=== PATIENT | female | born 1990 | race Caucasian/White ===

== ENCOUNTER → 2020-01-26 11:48 | Outpatient (CLI) | payer MEDICAID, SELFPAY ==
[2020-01-26 13:59] LABS: Hematocrit 37.8 % (37-47); Hemoglobin 12.4 g/dL (12.0-15.0); Mean Corp Hgb Conc 32.8 g/dL (32-36); Mean Corpuscular Hgb 30.4 pg (27.0-32.0); Mean Corpuscular Volume 92.6 fL (81-99); Mean Platelet Vol. 10.2 fl (6.2-12.0); Platelet Count 263 K/mm3 (150-450); RBC Distribution Width CV 12.3 % (11.6-14.6); RBC Distribution Width SD 41.5 fl (35.1-43.9); Red Blood Count 4.08 M/mm3 (4.2-5.4); White Blood Count 8.2 K/mm3 (4.4-11.0)
[2020-01-26 14:17] LABS: Glucose Challenge Gest 1H 50g 87 mg/dL (70-140)
== END ==
PROVIDERS: PCP Family Medicine; Visit Provider Student in an Organized Health Care Education/Training Program
DX: Z34.82 Encounter for supervision of other normal pregnancy, second trimester (principal)
CPT/HCPCS: 36415; 82950; 85027

== ENCOUNTER → 2020-03-26 11:30 | Outpatient (CLI) | payer MEDICAID, SELFPAY | PROVIDERS: PCP Family Medicine; Visit Provider Obstetrics & Gynecology | DX: Z36.85 Encounter for antenatal screening for Streptococcus B (principal) | CPT/HCPCS: 87081 ==

== ENCOUNTER → 2020-04-18 09:50 | Outpatient (CLI) | payer MEDICAID, SELFPAY | PROVIDERS: Referring Provider Student in an Organized Health Care Education/Training Program; Visit Provider Student in an Organized Health Care Education/Training Program | DX: Z03.818 Encounter for observation for suspected exposure to other biological agents ruled out (principal) | CPT/HCPCS: 87635; C9803; U0005; U0003 ==

== ENCOUNTER 2020-04-23 07:00 | Inpatient (IN) | payer MEDICAID, SELFPAY ==
[2020-04-23] VITALS (82 sets, daily range): BP systolic 82–137; BP diastolic 33–72; PULSE 66–203; RESP 16; TEMP 36.3–37.3; O2SAT 80–100; BMI 35.3
[2020-04-23] MEDS: Lactated Ringers 1,000 ML 50 ML IV (07:23)
[2020-04-23 07:48] LABS: Absolute Lymphocyte Count 1.94 X10^3/uL (0.83-4.51); Absolute Neutrophil Count 4.4 X10^3/uL (2.0-7.7); Basophil# 0.04 X10^3/uL; Basophil% 0.6 % (0-1); Eosinophil# 0.09 X10^3/uL; Eosinophils% 1.3 % (0-5); Hematocrit 37.4 % (37-47); Hemoglobin 12.5 g/dL (12.0-15.0); Lymphocyte # 1.94 X10^3/ul (4.0); Lymphocyte % 27.3 % (19-41); Mean Corp Hgb Conc 33.4 g/dL (32-36); Mean Corpuscular Hgb 29.3 pg (27.0-32.0); Mean Corpuscular Volume 87.8 fL (81-99); Mean Platelet Vol. 10.8 fl (6.2-12.0); Monocyte# 0.62 X10^3/uL; Monocyte% 8.7 % (0-10); NRBC Flagged by Analyzer 0 % (0-5); Neutrophil # 4.38 X10^3/uL (2.7-7.7); Neutrophil % 61.5 % (47-70); Platelet Count 208 K/mm3 (150-450); RBC Distribution Width CV 13.6 % (11.6-14.6); RBC Distribution Width SD 43.5 fl (35.1-43.9); Red Blood Count 4.26 M/mm3 (4.2-5.4); White Blood Count 7.1 K/mm3 (4.4-11.0)
[2020-04-23] MEDS: Oxytocin 30 units/NS 500 ml 30 UNITS/500 ML IV.SOLN IV (08:00)
--- NOTE | 2020-04-23 08:22 | HP.PCM_ITS ---
History and Physical Date of Admission: 04/23/20 HPI: 29-year-old G2, P1 at 39 weeks and 5 days, CORNELIO 04/25/2020 x 7-week ultrasound, admitted for induction of labor at term. Denies leaking of fluid, vaginal bleeding, regular contractions. + FM. Denies headache, vision changes, chest pain, shortness of breath, nausea and vomiting. This is complicated by: Nothing Obstetrical History G1: 42-week vacuum-assisted vaginal delivery G2: Current Past Medical History Denies Medications PNV, folate Past Surgical History Right oophorectomy, wisdom teeth extraction Social History Tobacco use: Denies Alcohol use: Denies Illicit drug use: Denies Labs Blood type: B+ Rubella: Immune Hep B: Negative HIV: Negative RPR: Nonreactive 1 hour GTT: Within normal limits GBS: Negative COVID neg Allergies Codeine, Bactrim Review of Systems General: alert and oriented HEENT: _denies change of vision Heart/lungs: _denies CP, SOB GI: _denies nausea, vomiting, dysuria, diarrhea MSK: _denies calf pain, tenderness Physical Exam Vital Signs Temp Pulse BP Pulse Ox 04/23/20 10:22 98.7 F 78 108/62 98 04/23/20 09:38 98.6 F 93 104/58 L 98 04/23/20 08:25 95 103/69 97 04/23/20 07:29 99.1 F 107 H 112/69 97 General: a&o x3, NAD HEENT: normocephalic, atraumatic Cardio: no JVD Resp: no increased work in breathing Abdomen: soft, gravid, nontender Extremities: _minimal-moderate edema CE: 4 cm FHT: 135/moderate variability/plus accelerations/no decelerations [place]: Irregular Labs Laboratory Results - last 24 hr 04/23/20 04/23/20 07:23 07:23 WBC 7.1 RBC 4.26 Hgb 12.5 Hct 37.4 MCV 87.8 MCH 29.3 MCHC 33.4 RDW Std Deviation 43.5 RDW Coeff of Radha 13.6 Plt Count 208 MPV 10.8 Immature Gran % (Auto) 0.600 Neut % (Auto) 61.5 Lymph % (Auto) 27.3 [place] % (Auto) 8.7 Eos % (Auto) 1.3 Baso % (Auto) 0.6 Absolute Neuts (auto) 4.4 Absolute Lymphs (auto) 1.94 Nucleated RBC % 0 Blood Type B POSITIVE Antibody Screen NEGATIVE Assessment & Plan 29-year-old G2, P1 at 39 weeks and 5 days, CORNELIO 04/25/2020 x 7-week ultrasound, admitted for induction of labor at term. This is complicated by: Nothing Admit to L&D - Routine labor orders - Pitocin induction - GBS neg - CEFM - Anesthesia to see
--- NOTE | 2020-04-23 10:59 | PCM.PN.BLA ---
Progress Note Patient seen and examined. Artificial rupture membranes clear fluid. Cervical exam: 60/-1. FHR: 135/moderate variability/plus accelerations/no decelerations. [place]: Every 2 to 4 minutes. Continue to titrate Pitocin as tolerated. Epidural if and when patient desires. STROKE Vital Signs/Narrative: Vital Signs Temp Pulse BP Pulse Ox 04/23/20 10:22 98.7 F 78 108/62 98 04/23/20 09:38 98.6 F 93 104/58 L 98 04/23/20 08:25 95 103/69 97 04/23/20 07:29 99.1 F 107 H 112/69 97
[2020-04-23] MEDS: fentaNYL 100 MCG/2 ML Ampul IV (13:18)
[2020-04-23] MEDS: Lactated Ringers 500 ML 999 ML IV ×2 (14:24→15:47)
[2020-04-23] MEDS: fentaNYL-bupivacaine (epidural) 100 ML BAG EPIDURAL (15:22)
[2020-04-23] MEDS: Amnioinfusion- 0.9% NS 1,000 ML IV.SOLN. 1000 ML INTRA-UTER (16:23)
[2020-04-23] MEDS: Oxytocin 30 units/NS 500 ml 30 UNITS/500 ML IV.SOLN 334 UNITS IV (18:02)
--- NOTE | 2020-04-23 18:08 | PCM.OPRPT ---
Vaginal Delivery Maternal Presentation: Elective Induction Method of Induction: Pitocin, Amniotomy Amniotic Membrane Rupture Type: Artificial Amniotic Fluid Description: Clear Final CORNELIO: 04/25/20 Final CORNELIO Source: US <20 weeks Gestational age: 39 Weeks and 5 Days Date of Procedure: 04/23/20 Pre-Operative Diagnosis: [place]gs intrauterine , Term induction of labor Post-Operative Diagnosis: [place]gs intrauterine , Term induction of labor Surgery/ Procedure Performed: Spontaneous Vaginal Delivery Type of Anesthesia: Epidural Description of Procedure: Spontaneous delivery of viable male. No nuchal cord. Baby to mom. Cord clamped and cut. Spontaneous delivery of placenta. Periurethral superficial laceration repaired with two figure of eight stitches, red rubber in place in urethra during repair to confirm urethral patency. EBL 350cc. APGARS 8/9. Infant A gender: Male (1 minute): 8 (5 minute): 9
--- NOTE | 2020-04-23 18:12 | DCINST_ITS ---
<Farida Moyer - Last Filed: 04/23/20 18:12> Discharge Diet: No Restrictions Discharge Activity: Return to Normal Activity, No Restrictions, May not drive while taking narcotic pain medications., May Shower May resume sexual activity in: 6 weeks Weight Bearing Status: Weight bearing as tolerated Call your doctor if your incision/area has: Continuous Slow Oozing, Sudden Increased Bleeding Call your doctor if you observe: Fever of 101 or Higher, Inability to have a bowel movement, Using more than one pad per hour, Shortness of breath, Dizziness Additional Instructions: If you experience any of the following, contact your healthcare provider. * Bleeding that soaks a pad every hour for 2 hours * Fever 100.4 or higher * Unrelieved incision or abdominal pain * Swelling, redness, discharge or bleeding from your incision or episiotomy site * Your incision begins to separate * Problems urinating (including inability to urinate or burning while urinating). * Visual changes * Severe headache * Flu-like symptoms * Pain or redness in one of both of your breasts * Pain, warmth, tenderness or swelling in your legs, especially the calf area * Frequent nausea and vomiting * Symptoms of depression or anxiety If you experience any of the following, call 911 or go to the nearest Emergency Room. * Chest pain * Problems breathing * Seizure activity * Partial or complete paralysis of a body part, slurred speech, weakness or drooping of the face, or a sudden inability to walk or hold your balance Allergies/Adverse Reactions: Allergies codeine Adverse Reaction (Verified 04/23/20 07:24) Nausea/Vom/Diarrhea sulfamethoxazole [From Bactrim] Adverse Reaction (Verified 04/23/20 07:25) Nausea/Vom/Diarrhea trimethoprim [From Bactrim] Adverse Reaction (Verified 04/23/20 07:25) Nausea/Vom/Diarrhea Medications to take at Discharge Prenatabs FA 1 tab PO DAILY 04/23/20 Please Follow Up With: Farida Moyer DO When: 2 week telehealth visit, 6 week Primary Care Physician: Care Physician,No Primary [Primary Care Provider] - Test Results: Test results from this visit will be discussed in further detail at your follow- up appointment, if applicable. <Mary Fuchs - Last Filed: 04/25/20 08:20> Additional Instructions: If you experience any of the following, contact your healthcare provider. * Bleeding that soaks a pad every hour for 2 hours * Fever 100.4 or higher * Unrelieved incision or abdominal pain * Swelling, redness, discharge or bleeding from your incision or episiotomy site * Your incision begins to separate * Problems urinating (including inability to urinate or burning while urinating). * Visual changes * Severe headache * Flu-like symptoms * Pain or redness in one of both of your breasts * Pain, warmth, tenderness or swelling in your legs, especially the calf area * Frequent nausea and vomiting * Symptoms of depression or anxiety If you experience any of the following, call 911 or go to the nearest Emergency Room. * Chest pain * Problems breathing * Seizure activity * Partial or complete paralysis of a body part, slurred speech, weakness or drooping of the face, or a sudden inability to walk or hold your balance Test Results: Test results from this visit will be discussed in further detail at your follow- up appointment, if applicable.
[2020-04-23] MEDS: 0.9% Saline Lock 10 ML Syringe IV (20:18)
[2020-04-24] MEDS: Ibuprofen 600 MG Tablet PO ×3 (03:41→20:07)
[2020-04-24 04:55] VITALS: BP 93/58; PULSE 83; RESP 16; TEMP 36.7
--- NOTE | 2020-04-24 05:29 | NURSING ---
pt denies feeling dizzy or lightheaded.
[2020-04-24 08:00] VITALS: BP 96/53; PULSE 89; RESP 14; TEMP 36.8
--- NOTE | 2020-04-24 08:38 | PCM.PN.OB ---
Subjective: PPD1 Patient in shower. Per night went okay, baby feeding well. no overnight events per nursing. - Physical Exam Vitals/I&O's: Vital Signs Temp Pulse Resp BP Pulse Ox 98.3 F 89 14 96/53 L 97 04/24/20 08:00 04/24/20 08:00 04/24/20 08:00 04/24/20 08:00 04/23/20 20:13 Oxygen Delivery Method Room Air Weight: 93.3 kg Body Mass Index (BMI) 35.3 Intake and Output for Last 24 Hours 04/22/20 04/23/20 04/24/20 23:59 23:59 23:59 Intake Total 2620.82 / 2620.82 1500 / 1500 Output Total 1100 / 1100 700 / 700 Balance 1520.82 / 1520.82 800 / 800 Laboratory Results 04/23/20 07:23: Blood Type B POSITIVE, Antibody Screen NEGATIVE Current Medications Acetaminophen (Acetaminophen 500 Mg Tablet) 1,000 mg PO Q8H PRN PRN PRN Reason: Pain Score 1-3 Bisacodyl (Bisacodyl 10 Mg Suppository) 10 mg RECTAL UD PRN PRN Reason: If no BM Dibucaine (Dibucaine 30 Gm Tube) 1 applic TOPICAL TID PRN PRN; Protocol PRN Reason: Discomfort Hydrocortisone (Hydrocortisone 2.5% Crm) 1 applic TOPICAL TID PRN PRN; Protocol PRN Reason: Discomfort Ibuprofen (Ibuprofen 600 Mg Tablet) 600 mg PO Q6H PRN PRN PRN Reason: Pain Score 1-3 Last Admin: 04/24/20 03:41 Dose: 600 mg Documented by: Ondansetron HCl (Ondansetron 4 Mg/2 Ml Vial) 4 mg IV Q4H PRN PRN PRN Reason: Nausea Senna/Docusate Sodium (Senna/Docusate Sodium 1 Tablet) 1 - 2 tablet PO DAILY PRN PRN PRN Reason: Constipation Simethicone (Simethicone 80 Mg Tablet) 80 mg PO PCHS PRN PRN Reason: Indigestion/Stomach pain Sodium Chloride (0.9% Saline Lock 10 Ml Syringe) 5 - 15 ml IV UD PRN PRN Reason: SALINE FLUSH Last Admin: 04/23/20 20:18 Dose: 10 ml Documented by: Medical Necessity - Tobacco Use Smoking Status: Never smoker Assessment/Plan PPD#1. . History of PPD. Home likely tomorrow.
[2020-04-24 12:30] VITALS: BP 112/46; PULSE 96; RESP 15; TEMP 36.9
[2020-04-24] MEDS: Acetaminophen 500 MG Tablet 1000 MG PO ×2 (15:14→23:57)
[2020-04-24 15:16] VITALS: BP 100/62; PULSE 94; RESP 16; TEMP 36.7
[2020-04-24 20:08] VITALS: BP 112/52; PULSE 85; RESP 17; TEMP 36.7; O2SAT 98
[2020-04-25 02:00] VITALS: PULSE 80; RESP 15; TEMP 36.7
--- NOTE | 2020-04-25 04:22 | NURSING ---
Pt. has been anxious and tearful on and off throughout the night. States that she misses her 14 month old daughter and appears to be overwhelmed when infant doesn't console easily. Case management consult in and pt. is to be seen today before discharge. Does have a history of depression. Will continue to monitor after the pt. gets some rest. in NSY at this time to allow pt. to try and nap.
[2020-04-25] MEDS: Ibuprofen 600 MG Tablet PO (05:56)
--- NOTE | 2020-04-25 08:18 | PCM.PN.OB ---
Subjective: No issues overnight. Pt reports less overwhelmed today since she got some sleep last night. Denies heavy lochia. Nursing going well. Denies significant pain. Objective: avss - Physical Exam Vitals/I&O's: Vital Signs Temp Pulse Resp BP Pulse Ox 98.0 F 80 15 112/52 L 98 04/25/20 02:00 04/25/20 02:00 04/25/20 02:00 04/24/20 20:08 04/24/20 20:08 Oxygen Delivery Method Room Air Weight: 93.3 kg Body Mass Index (BMI) 35.3 Intake and Output for Last 24 Hours 04/23/20 04/24/20 04/25/20 23:59 23:59 23:59 Intake Total 2620.82 / 2620.82 1500 / 1500 Output Total 1100 / 1100 700 / 700 Balance 1520.82 / 1520.82 800 / 800 General: Alert, Oriented x3, Cooperative, No apparent distress HEENT: Atraumatic, Normocephalic Lungs: Clear to auscultation, Normal air movement Cardiovascular: Regular rate, Regular Rhythm, Normal S1, Normal S2 Abdomen: Soft, Non Tender, Non-Distended, - - Fundus firm and nontender Extremities: No edema, No Calf Tenderness Neurological: Neuro grossly intact Psych/Mental Status: Normal Affect, Appropriate, Alert and oriented to time, place, person, mood and affect Current Medications Acetaminophen (Acetaminophen 500 Mg Tablet) 1,000 mg PO Q8H PRN PRN PRN Reason: Pain Score 1-3 Last Admin: 04/24/20 23:57 Dose: 1,000 mg Documented by: Bisacodyl (Bisacodyl 10 Mg Suppository) 10 mg RECTAL UD PRN PRN Reason: If no BM Dibucaine (Dibucaine 30 Gm Tube) 1 applic TOPICAL TID PRN PRN; Protocol PRN Reason: Discomfort Hydrocortisone (Hydrocortisone 2.5% Crm) 1 applic TOPICAL TID PRN PRN; Protocol PRN Reason: Discomfort Ibuprofen (Ibuprofen 600 Mg Tablet) 600 mg PO Q6H PRN PRN PRN Reason: Pain Score 1-3 Last Admin: 04/25/20 05:56 Dose: 600 mg Documented by: Ondansetron HCl (Ondansetron 4 Mg/2 Ml Vial) 4 mg IV Q4H PRN PRN PRN Reason: Nausea Senna/Docusate Sodium (Senna/Docusate Sodium 1 Tablet) 1 - 2 tablet PO DAILY PRN PRN PRN Reason: Constipation Simethicone (Simethicone 80 Mg Tablet) 80 mg PO PCHS PRN PRN Reason: Indigestion/Stomach pain Sodium Chloride (0.9% Saline Lock 10 Ml Syringe) 5 - 15 ml IV UD PRN PRN Reason: SALINE FLUSH Last Admin: 04/23/20 20:18 Dose: 10 ml Documented by: Medical Necessity - Tobacco Use Smoking Status: Never smoker Assessment/Plan 29yo PPD#2 s/p -hx depression - f/u social work consultation - -routine care -d/c home today
[2020-04-25 08:30] VITALS: BP 93/41; PULSE 88; RESP 15; TEMP 36.9
== END 2020-04-25 11:15 | disposition home or self-care (01) | DRG 560 ==
PROVIDERS: Admitting Provider Student in an Organized Health Care Education/Training Program; Visit Provider Student in an Organized Health Care Education/Training Program
DX: O75.9 Complication of labor and delivery, unspecified (principal); O71.82 Other specified trauma to perineum and vulva; Z37.0 Single live birth; Z3A.39 39 weeks gestation of pregnancy; Z90.721 Acquired absence of ovaries, unilateral
CPT/HCPCS: 59025; 59050; 85025; 86850; 86900; 86901; 99218; J7030; J7120; A4216; G0378

== ENCOUNTER → 2020-05-28 15:47 | Outpatient (CLI) | payer MEDICAID, SELFPAY ==
[2020-04-23 07:15] VITALS: BMI 35.3
[2020-05-31 15:43] LABS: HPV Reflexed? NOT INDICATED
== END ==
PROVIDERS: Visit Provider Student in an Organized Health Care Education/Training Program
DX: Z12.4 Encounter for screening for malignant neoplasm of cervix (principal)
CPT/HCPCS: 88175; G0145

== ENCOUNTER → 2020-10-31 14:17 | Outpatient (CLI) | payer MEDICAID, SELFPAY ==
[2020-04-23 07:15] VITALS: BMI 35.3
[2020-10-31 15:08] LABS: Hematocrit 43.8 % (37-47); Hemoglobin 14.7 g/dL (12.0-15.0); Mean Corp Hgb Conc 33.6 g/dL (32-36); Mean Corpuscular Volume 86.4 fL (81-99); Platelet Count 312 K/mm3 (150-450); RBC Distribution Width SD 37.5 fl (35.1-43.9); Red Blood Count 5.07 M/mm3 (4.2-5.4); White Blood Count 8.4 K/mm3 (4.4-11.0)
[2020-10-31 15:27] LABS: Vitamin B12 562 pg/mL (211-911); Vitamin D,25 Hydroxy 22.6 ng/mL
[2020-10-31 15:33] LABS: Ferritin 19 ng/mL (8-252); Iron 109 ug/dL (50-170); Iron Binding Capacity,Total 383 ug/dL (250-450); T4 Free Direct 0.89 ng/dL (0.76-1.46); Thyroid Stim Hormone (TSH) 0.31 uIU/mL (0.358-3.74)
== END ==
PROVIDERS: Visit Provider Obstetrics & Gynecology
DX: R53.83 Other fatigue (principal)
CPT/HCPCS: 36415; 82306; 82607; 82728; 83540; 83550; 84439; 84443; 85027

== ENCOUNTER 2021-05-28 16:49 | Outpatient (CLI) | payer MEDICAID, SELFPAY ==
[2021-05-28 18:23] LABS: Progesterone Level 11.03 ng/mL (See Comment)
[2021-05-28 18:39] LABS: hCG Titer Quant., Serum 17942 mIU/mL (1-3)
== END 2021-05-28 23:59 | disposition home or self-care (01) ==
LOC: WOBLAB 16:50
PROVIDERS: Visit Provider Obstetrics & Gynecology
DX: N92.6 Irregular menstruation, unspecified (principal)
CPT/HCPCS: 36415; 84144; 84702

== ENCOUNTER 2021-06-13 15:05 | Outpatient (CLI) | payer MEDICAID, SELFPAY ==
[2021-06-13 16:05] LABS: Absolute Lymphocyte Count 1.84 X10^3/uL (0.83-4.51); Absolute Neutrophil Count 6.4 X10^3/uL (2.0-7.7); Basophil# 0.04 X10^3/uL; Basophil% 0.5 % (0-1); Eosinophil# 0.09 X10^3/uL; Hematocrit 40.5 % (37-47); Hemoglobin 14.3 g/dL (12.0-15.0); Lymphocyte # 1.84 X10^3/ul (0.83-4.51); Lymphocyte % 20.8 % (19-41); Mean Corp Hgb Conc 35.3 g/dL (32-36); Mean Corpuscular Hgb 30.6 pg (27.0-32.0); Mean Corpuscular Volume 86.5 fL (81-99); Mean Platelet Vol. 10.3 fl (6.2-12.0); Monocyte# 0.49 X10^3/uL; Monocyte% 5.5 % (0-10); NRBC Flagged by Analyzer 0 % (0-5); Neutrophil # 6.36 X10^3/uL (2.7-7.7); Neutrophil % 71.7 % (47-70); Platelet Count 338 K/mm3 (150-450); RBC Distribution Width CV 12.4 % (11.6-14.6); Red Blood Count 4.68 M/mm3 (4.2-5.4); White Blood Count 8.9 K/mm3 (4.4-11.0)
[2021-06-14 08:31] LABS: HIV - WCH Non-Reactive (Nonreactive); Hepatitis B Surface Antigen Non-Reactive (Nonreactive); Hepatitis C Antibody Non-Reactive (Nonreactive); Rubella IgG Reactive (Nonreactive); Syphilis Antibodies Non-reactive
[2021-06-17 15:08] LABS: Chlamydia By Nucleic Acid AMP Negative (Negative)
[2021-06-17 20:51] LABS: Gonococcus By Nucleic Acid AMP Negative (Negative)
== END 2021-06-13 23:59 | disposition home or self-care (01) ==
LOC: WOBLAB 15:06
PROVIDERS: Visit Provider Student in an Organized Health Care Education/Training Program
DX: Z34.81 Encounter for supervision of other normal pregnancy, first trimester (principal); Z11.3 Encounter for screening for infections with a predominantly sexual mode of transmission
CPT/HCPCS: 36415; 85025; 86703; 86762; 86780; 86803; 87086; 87088; 87340; 87491; 87591

== ENCOUNTER → 2021-10-08 | Outpatient (CLI) | payer MEDICAID, SELFPAY ==
[2021-10-08 15:29] LABS: Hematocrit 35.6 % (37-47); Hemoglobin 11.8 g/dL (12.0-15.0); Mean Corp Hgb Conc 33.1 g/dL (32-36); Mean Corpuscular Hgb 30.4 pg (27.0-32.0); Mean Corpuscular Volume 91.8 fL (81-99); Mean Platelet Vol. 10.2 fl (6.2-12.0); Platelet Count 232 K/mm3 (150-450); RBC Distribution Width CV 12.9 % (11.6-14.6); RBC Distribution Width SD 42.8 fl (35.1-43.9); Red Blood Count 3.88 M/mm3 (4.2-5.4); White Blood Count 8.6 K/mm3 (4.4-11.0)
[2021-10-08 15:39] LABS: Glucose Challenge Gest 1H 50g 118 mg/dL (70-140)
== END | disposition home or self-care (01) ==
PROVIDERS: Visit Provider Student in an Organized Health Care Education/Training Program
DX: Z34.83 Encounter for supervision of other normal pregnancy, third trimester (principal)
CPT/HCPCS: 36415; 82950; 85027

== ENCOUNTER 2021-11-21 17:43 | Outpatient (CLI) | payer MEDICAID, SELFPAY ==
[2021-11-21 18:03] VITALS: BP 118/60; PULSE 97; TEMP 37.3; O2SAT 97
[2021-11-21 18:11] VITALS: BMI 33.7
[2021-11-21] MEDS: Lactated Ringers 1,000 ML 999 ML IV (18:59)
[2021-11-21 19:11] LABS: Mucous, Urine 0 SEEN /hpf (<or=2+); Red Blood Cells-Urine 0 SEEN /hpf (0-5)
[2021-11-21 19:16] LABS: Color, Urine Yellow (Yellow); Glucose, Dipstick Normal (Normal); Ketone-Dipstick Negative (Negative); Leukocyte Esterase-Dipstick Negative /ul (Negative); Nitrite-Dipstick Negative (Negative); Occult Blood-Urine Negative /ul (Negative); Protein-Dipstick 15 mg/dl (Negative); Specific Gravity, Urine 1.025 (1.002-1.030); Urine Bilirubin Dipstick Negative (Negative); Urine Clarity Clear (Clear); Urine Urobilinogen Normal (Normal)
[2021-11-21 19:21] LABS: Absolute Lymphocyte Count 1.88 X10^3/uL (0.83-4.51); Basophil# 0.03 X10^3/uL; Basophil% 0.3 % (0-1); Eosinophil# 0.11 X10^3/uL; Eosinophils% 1.1 % (0-5); Hematocrit 34.6 % (37-47); Hemoglobin 11.8 g/dL (12.0-15.0); Lymphocyte # 1.88 X10^3/ul (0.83-4.51); Mean Corp Hgb Conc 34.1 g/dL (32-36); Mean Corpuscular Hgb 30.3 pg (27.0-32.0); Mean Corpuscular Volume 88.9 fL (81-99); Mean Platelet Vol. 10.2 fl (6.2-12.0); Monocyte# 0.81 X10^3/uL; Monocyte% 8.2 % (0-10); NRBC Flagged by Analyzer 0 % (0-5); Neutrophil # 7.04 X10^3/uL (2.7-7.7); Neutrophil % 70.9 % (47-70); Platelet Count 255 K/mm3 (150-450); RBC Distribution Width CV 12.3 % (11.6-14.6); RBC Distribution Width SD 39.1 fl (35.1-43.9); Red Blood Count 3.89 M/mm3 (4.2-5.4); White Blood Count 9.9 K/mm3 (4.4-11.0)
[2021-11-21 19:25] VITALS: BP 109/63; PULSE 93; TEMP 37.5
[2021-11-21 19:26] VITALS: PULSE 93; O2SAT 99
[2021-11-21 19:31] LABS: Squamous Epithelial Cells - UA 0-5 SEEN /hpf (5-10); White Blood Cells 0-5 SEEN /hpf (0-5)
[2021-11-21 19:32] LABS: Bacteria 1+ /hpf (None Seen); Calcium Oxalate Crystals Ur 3+ /hpf (<or=2+)
[2021-11-21] MEDS: Lactated Ringers 1,000 ML 100 ML IV (20:00)
[2021-11-21] MEDS: Acetaminophen 500 MG Tablet 1000 MG PO (20:47)
--- NOTE | 2021-11-21 22:01 | HP.PCM.OB_ITS ---
History and Physical Date of Admission: 11/21/21 Chief complaint: Back pain History present illness: 31-year-old G3, P2 at 30 weeks and 4 days with CORNELIO 01/23/2022 arrives with back pain. Denies headache, visual changes, chest pain, shortness of breath, nausea vomiting, right upper quadrant pain. Patient states good movement. Obstetric history: G1: Term vaginal delivery 2018 G2: Term 2020 G3: Current Past medical history: None Medications: None Past surgical history: [place] teeth extraction, right oophorectomy Social history denies smoking, alcohol use, drug use Family history: Denies history DVT or PE Allergies: Codeine Review of systems: Besides above pertinent positives a full review of systems was performed and found to be negative Physical exam: Vitals: Blood pressure 109/63 pulse 93 temperature 97.8 ?F General normal-appearing no HEENT: Normocephalic/atraumatic no cervical lymphadenopathy Cardiac/respiratory: No use of accessory muscles, nonlabored breathing Abdomen: Soft, nontender, gravid Back: Negative CVA tenderness bilaterally Extremities: No peripheral edema normal peripheral pulses Psych: Normal affect normal demeanor nonpressured speech Labs: White blood cell count 9.9 hemoglobin 11.8 hematocrit 34.6% platelets 255. Blood type B+ antibody negative Assessment plan: 31-year-old G3, P2 at 30 weeks and 4 days with lower back pain that comes and goes and fullness in bladder. Cervical exam 1 cm, no signs of contractions and no signs of labor. No signs of urinary tract infection or pyelonephritis, negative CVA tenderness, afebrile urinalysis reveals blood and oxalate crystals working diagnosis nephrolithiasis. 1 L LR bolus, IV hydrate at LR 150 cc/h. We will continue to monitor overnight and reevaluate in the morning
[2021-11-22] VITALS (7 sets, daily range): BP systolic 90–117; BP diastolic 50–64; PULSE 77–92; TEMP 36.6–37; O2SAT 98
[2021-11-22] MEDS: Lactated Ringers 1,000 ML 150 ML IV (02:55)
--- NOTE | 2021-11-22 07:28 | PN.OBGYN_ITS ---
Subjective Subjective Pain resolved. Asymptomatic. Denies fevers chills, chest pain, shortness of breath. Objective Data Objective Data Vital Signs: Vital Signs Temp Pulse BP Pulse Ox 98.4 F 84 110/64 98 11/22/21 07:13 11/22/21 07:13 11/22/21 07:13 11/22/21 07:15 Weight: 199 lb 9.6 oz Body Mass Index (BMI) 33.7 Intake & Output: Intake and Output for Last 24 Hours 11/20/21 11/21/21 11/22/21 23:59 23:59 23:59 Intake Total 1080 / 0346 917.5 / 917.5 Balance 1080 / 1080 917.5 / 917.5 Lab / Micro Data Result Diagrams: 11/21/21 18:32 Labs: Laboratory Results - last 24 hr 11/21/21 18:32: WBC 9.9, RBC 3.89 L, Hgb 11.8 L, Hct 34.6 L, MCV 88.9, MCH 30.3, MCHC 34.1, RDW Std Deviation 39.1, RDW Coeff of Radha 12.3, Plt Count 255, MPV 10.2, Immature Gran % (Auto) 0.500, Neut % (Auto) 70.9 H, Lymph % (Auto) 19.0, [place] % (Auto) 8.2, Eos % (Auto) 1.1, Baso % (Auto) 0.3, Absolute Neuts (auto) 7.0, Absolute Lymphs (auto) 1.88, Nucleated RBC % 0 11/21/21 18:45: Urine Color Yellow, Urine Clarity Clear, Urine pH 6.0, Ur Specific [place] 1.025, Urine Protein 15 H, Urine Glucose (UA) Normal, Urine Ketones Negative, Urine Occult Blood Negative, Urine Nitrite Negative, Urine Bilirubin Negative, Urine Urobilinogen Normal, Ur Leukocyte Esterase Negative, Urine RBC 0 SEEN, Urine WBC 0-5 SEEN, Ur Squamous Epith Cells 0-5 SEEN, Calcium Oxalate Crystal 3+, Urine Bacteria 1+, Urine Mucus 0 SEEN 11/21/21 18:45: Blood Type B POSITIVE, Antibody Screen NEGATIVE Physical Exam Const alert, oriented x3, no apparent distress, average body habitus, healthy appearing and well nourished HEENT normocephalic and moist oral mucous membranes Eyes PERRL Neck full ROM Resp normal respiratory effort, no retractions, no use of accessory muscles and clear to auscultation bilaterally GI GI Narrative: Soft, nontender, gravid Narrative: Cervical exam: 1/thick/high Back/Spine no CVA tenderness Extremity normal to inspection, full ROM and no clubbing, cyanosis or edema Skin no rashes or lesions noted and no wounds Neuro moves all extremities, no focal motor deficits and no sensory deficits noted Assessment & Plan (1) : PLAN: Patient seen and examined, no asymptomatic. Patient felt all of a sudden relief. Cervical exam unchanged, no signs of labor. Working diagnosis nephrolithiasis. To continue to p.o. hydrate at home. Follow-up at scheduled appointments okay to discharge home
--- NOTE | 2021-11-22 07:30 | DCINST_ITS ---
Discharge Instructions Diet Discharge Diet: No restrictions Activity Discharge Activity: Return to Normal Activity, May Drive and May Shower May resume sexual activity in: No Restrictions Weight Bearing Status: Weight bearing as tolerated Dressing / Incision Call your doctor if your incision/area has: Continuous Slow Oozing and Foul Smelling Discharge Call your doctor if you observe: Fever of 101 or Higher, Shortness of breath and Chest pain Follow Up Care Please Follow Up With: Karlo Moyer MD When: Follow-up at scheduled appointments Test Results: Test results from this visit will be discussed in further detail at your follow- up appointment, if applicable. Discharge Plan Admission Reason For Visit: LOWER BACK PAIN Attending Provider: Karlo Moyer Primary Care Provider: Care Physician,Rebekah Primary Discharge Orders/Prescriptions Prescriptions: No Action Prenatabs FA 1 tab PO DAILY Referrals / Follow Up: Care Physician,No Primary [Primary Care Provider] - Disposition Patient Disposition: Home, Self Care
== END 2021-11-22 07:40 | disposition home or self-care (01) ==
LOC: WPOUT 17:48 → WP 17:48
PROVIDERS: Referring Provider Obstetrics & Gynecology; Visit Provider Obstetrics & Gynecology
DX: O99.891 Other specified diseases and conditions complicating pregnancy (principal); M54.50 Low back pain, unspecified; Z3A.30 30 weeks gestation of pregnancy
CPT/HCPCS: 96360; 96361 ×10; 36415; 59025; 59050; 81001; 85025; 86850; 86900; 86901; 87086; 87088; 99218; J7120; G0378

== ENCOUNTER → 2022-01-01 | Outpatient (CLI) | payer MEDICAID, SELFPAY | END | disposition home or self-care (01) | LOC: LABSPEC 16:17 | PROVIDERS: Visit Provider Student in an Organized Health Care Education/Training Program | DX: Z36.85 Encounter for antenatal screening for Streptococcus B (principal) | CPT/HCPCS: 87081 ==

== ENCOUNTER 2022-01-07 20:30 | Outpatient (CLI) | payer MEDICAID, SELFPAY ==
[2022-01-07 20:44] VITALS: BP 120/83; PULSE 106
[2022-01-07 20:51] VITALS: TEMP 36.8
[2022-01-07 20:52] VITALS: PULSE 100; O2SAT 98
[2022-01-07 20:53] VITALS: BMI 35.2
--- NOTE | 2022-01-09 09:10 | PCM.PN.BLA ---
Progress Note G3, P2 presenting at 37/5 weeks for contractions and back pain. No leaking of fluid. Reports movement. Cervical exam completed by RN patient was noted to be 3 cm, repeat 3.5 cm. Discharged home with labor precautions and reassuring status. Follow up in office Thursday 135/mod prachi/+accel/no decel, toco q5-6
== END 2022-01-08 00:25 | disposition home or self-care (01) ==
LOC: WPOUT 20:33 → WP 20:33
PROVIDERS: Visit Provider Student in an Organized Health Care Education/Training Program
DX: O47.03 False labor before 37 completed weeks of gestation, third trimester (principal); Z3A.37 37 weeks gestation of pregnancy
CPT/HCPCS: 59025; 59050; 99218; G0378

== ENCOUNTER 2022-01-23 15:15 | Inpatient (IN) | payer MEDICAID, SELFPAY ==
[2022-01-23] VITALS (25 sets, daily range): BP systolic 81–141; BP diastolic 42–74; PULSE 71–101; TEMP 36.7–37.2; O2SAT 98–99; BMI 35.4
[2022-01-23] MEDS: Lactated Ringers 1,000 ML 50 ML IV (16:00)
[2022-01-23] MEDS: LACTATED RINGERS 500 ML 999 ML IV ×2 (16:10→21:38)
[2022-01-23 16:49] LABS: Absolute Lymphocyte Count 1.69 X10^3/uL (0.83-4.51); Absolute Neutrophil Count 4.6 X10^3/uL (2.0-7.7); Basophil# 0.03 X10^3/uL; Basophil% 0.4 % (0-1); Eosinophil# 0.08 X10^3/uL; Eosinophils% 1.1 % (0-5); Hematocrit 37.7 % (37-47); Hemoglobin 12.1 g/dL (12.0-15.0); Lymphocyte # 1.69 X10^3/ul (0.83-4.51); Mean Corp Hgb Conc 32.1 g/dL (32-36); Mean Corpuscular Hgb 28.4 pg (27.0-32.0); Mean Corpuscular Volume 88.5 fL (81-99); Mean Platelet Vol. 11.5 fl (6.2-12.0); Monocyte# 0.61 X10^3/uL; Monocyte% 8.7 % (0-10); NRBC Flagged by Analyzer 0 % (0-5); Neutrophil # 4.62 X10^3/uL (2.7-7.7); Neutrophil % 65.5 % (47-70); Platelet Count 222 K/mm3 (150-450); RBC Distribution Width CV 13.8 % (11.6-14.6); RBC Distribution Width SD 44.4 fl (35.1-43.9); Red Blood Count 4.26 M/mm3 (4.2-5.4); White Blood Count 7.1 K/mm3 (4.4-11.0)
--- NOTE | 2022-01-23 16:52 | HP.PCM.OB_ITS ---
History and Physical Date of Admission: 01/23/22 Chief complaint: Induction of labor term History present illness: 31-year-old at 40 weeks and 0 days with CORNELIO 01/23/2022 for induction of labor today at term with nonreassuring heart tones. Denies headache, visual changes, chest pain, shortness of breath, nausea vomit, right upper quadrant pain. Patient states good movement. Obstetric history: G1: 42-week G2: 42-week G3: Current Past medical history: None Medications: None Past surgical history: [place] teeth extraction, right oophorectomy Allergies: Bactrim (nausea), codeine (nausea diarrhea) Family history: Denies history DVT or PE Social history: Denies smoking, alcohol, drug use Review of systems: Besides above pertinent positives a full review of systems was performed and found to be negative Physical exam: Vitals: Blood pressure 123/60 pulse 81 General: Normal-appearing no acute distress HEENT: Normocephalic/atraumatic no cervical of adenopathy Cardiac/respiratory: No accessory muscles, nonlabored breathing Abdomen: Soft, nontender, gravid Extremities: No peripheral edema normal peripheral pulses Psych: Normal affect normal demeanor nonpressured speech Labs: White blood cell count 7.1 hemoglobin 12.1 hematocrit 37.7% platelets 222 Assessment plan: 31-year-old at 40 weeks and 0 days for induction of labor at term with nonreassuring heart tones Admit labor and delivery CEFM Pitocin GBS negative Routine orders Anesthesia to see
[2022-01-23] MEDS: Oxytocin 15 Units/NS 250ml 15 UNITS/250 ML IV.SOLN 2 UNITS IV (17:10)
[2022-01-23] MEDS: fentaNYL-bupivacaine (epidural) 100 ML BAG EPIDURAL (22:47)
[2022-01-24] VITALS (34 sets, daily range): BP systolic 90–122; BP diastolic 49–80; PULSE 68–99; RESP 12–18; TEMP 36.5–37.3; O2SAT 94–99
[2022-01-24] MEDS: Lactated Ringers 1,000 ML 200 ML IV ×2 (00:15→05:23)
[2022-01-24] MEDS: LACTATED RINGERS 500 ML 999 ML IV (02:54)
[2022-01-24] MEDS: fentaNYL-bupivacaine (epidural) 100 ML BAG EPIDURAL ×2 (03:37→08:34)
--- NOTE | 2022-01-24 07:10 | PCM.PN.OB ---
Subjective Subjective Comfortable with epidural Objective Data Objective Data Vital Signs: Vital Signs Temp Pulse BP Pulse Ox 98.0 F 83 98/57 L 99 01/24/22 04:44 01/24/22 06:30 01/24/22 06:30 01/23/22 22:52 Weight: 206 lb 9.17 oz Body Mass Index (BMI) 35.4 Intake & Output: Intake and Output for Last 24 Hours 01/22/22 01/23/22 01/24/22 23:59 23:59 23:59 Intake Total 1300.14 / 1300.14 2069.2069. Output Total 150 / 150 Balance 1150.14 / 1150.14 2069. Lab / Micro Data Result Diagrams: 01/23/22 16:40 Labs: Laboratory Results - last 24 hr 01/23/22 16:40: WBC 7.1, RBC 4.26, Hgb 12.1, Hct 37.7, MCV 88.5, MCH 28.4, MCHC 32.1, RDW Std Deviation 44.4 H, RDW Coeff of Radha 13.8, Plt Count 222, MPV 11.5, Immature Gran % (Auto) 0.300, Neut % (Auto) 65.5, Lymph % (Auto) 24.0, [place] % (Auto) 8.7, Eos % (Auto) 1.1, Baso % (Auto) 0.4, Absolute Neuts (auto) 4.6, Absolute Lymphs (auto) 1.69, Nucleated RBC % 0 01/23/22 16:40: Blood Type B POSITIVE, Antibody Screen NEGATIVE Micro: Microbiology 01/23/22 16:40 Nasal Secretion SARS-CoV-2 Antigen (Rapid) - Final Physical Exam Const alert, oriented x3, no apparent distress, average body habitus, healthy appearing and well nourished HEENT normocephalic and moist oral mucous membranes Eyes PERRL Neck full ROM Resp normal respiratory effort, no retractions and no use of accessory muscles GI GI Narrative: Soft, nontender, gravid Narrative: CE: 4-5/70/-2. AROM clear fluid Extremity normal to inspection, full ROM and no clubbing, cyanosis or edema Neuro moves all extremities and no focal motor deficits Psych mental status grossly normal, affect normal and speech normal Assessment & Plan (1) : PLAN: Pt seen and examined. Pt comfortable with epidural. AROM clear fluid. Continue current management
--- NOTE | 2022-01-24 10:41 | EX.PCM.OBRPT ---
Vaginal Delivery Findings Description of Procedure: Normal spontaneous vaginal delivery of viable female , vertex TRAVIS. Head and shoulders delivered these. Cord cut clamped. Baby handed off to patient. Periurethral laceration noted and repaired in typical fashion. EBL 300 cc Apgars 8/9.
[2022-01-24] MEDS: Oxytocin 15 Units/NS 250ml 15 UNITS/250 ML IV.SOLN 83 UNITS IV (11:10)
[2022-01-24] MEDS: Ibuprofen 600 MG Tablet PO (21:20)
[2022-01-24] MEDS: Acetaminophen 500 MG Tablet 1000 MG PO (23:09)
[2022-01-24] MEDS: Benzocaine/Lanolin/Aloe Vera 1 SPRAY EACH TOPICAL (23:41)
--- NOTE | 2022-01-25 03:20 | NURSING ---
this RN at bedside to reinforce safe sleep practices. Mother verbalized understanding of placing infant in bassinet when she was sleepy but refused this RN to move baby out of bed with her. This RN suggested mother get up to rocking chair to get feed infant to keep herself awake and mother declined. this RN said she would place infant in bassinet so mother can sleep and mother said no that's okay, she is still hungry'. this RN consulted Manny to assess situation.
[2022-01-25 03:28] VITALS: BP 114/60; PULSE 88
[2022-01-25 03:30] VITALS: BP 114/60; PULSE 80; RESP 18; TEMP 36.4
[2022-01-25 07:40] VITALS: BP 119/57; PULSE 94; RESP 18; TEMP 36.2; O2SAT 99
[2022-01-25 07:41] VITALS: O2SAT 98
[2022-01-25 07:42] VITALS: BP 119/57; PULSE 90
--- NOTE | 2022-01-25 09:10 | PCM.DC.BLA ---
Discharge Summary Date of Admission: 01/23/22 Date of Discharge: 01/25/22 Summary: Patient arrived on 01/23/2022 for induction of labor for nonreassuring heart tones. Subsequently delivered vaginally on 01/24/2022. Routine recovery discharged home on 01/25/2022 Meaningful Use Info Meaningful Use Diagnoses (Choose all that apply): None applicable Discharge Plan Admission Admit Date/Time: 01/23/22 15:15 Primary Reason for Your Visit: Induction of labor Attending Provider: Karlo Moyer Primary Care Provider: Carina Rawls,Rebekah Primary Instructions Additional Instructions / Restrictions: Regular diet. Weightbearing as tolerated. Okay to shower. Okay to drive. No intercourse for 4 to 6 weeks. Call if fevers, chills, chest pain, shortness of breath. Follow-up 4 to 6 weeks Discharge Orders/Prescriptions Prescriptions: No Action Prenatabs FA 1 tab PO DAILY Referrals / Follow Up: Care Physician,No Primary [Primary Care Provider] - Disposition Disposition (needs filled in before D/C Order can be placed): Home, Self Care
--- NOTE | 2022-01-25 09:11 | PN.OBGYN_ITS ---
Subjective Subjective No overnight complaints Objective Data Objective Data Vital Signs: Vital Signs Temp Pulse Resp BP Pulse Ox O2 Del Method 97.1 F L 90 18 119/57 L 98 Room Air 01/25/22 07:40 01/25/22 07:42 01/25/22 07:40 01/25/22 07:42 01/25/22 07:41 01/25/22 07:40 Oxygen Delivery Method Room Air Weight: 206 lb 9.17 oz Body Mass Index (BMI) 35.4 Intake & Output: Intake and Output for Last 24 Hours 01/23/22 01/24/22 01/25/22 23:59 23:59 23:59 Intake Total 1300.14 / 1300.14 3730.03 / 3730.03 Output Total 150 / 150 1950 / 1950 Balance 1150.14 / 1150.14 1780.03 / 1780.03 Lab / Micro Data Result Diagrams: 01/23/22 16:40 Micro: Microbiology 01/23/22 16:40 Nasal Secretion SARS-CoV-2 Antigen (Rapid) - Final Physical Exam Const alert, oriented x3, no apparent distress, average body habitus, healthy appearing and well nourished HEENT normocephalic and moist oral mucous membranes Eyes PERRL Neck full ROM Resp normal respiratory effort, no retractions and no use of accessory muscles GI GI Narrative: Soft, nontender, uterus firm and below umbilicus Extremity normal to inspection, full ROM and no clubbing, cyanosis or edema Neuro moves all extremities and no focal motor deficits Psych mental status grossly normal, affect normal, speech normal and activity/motor behavior normal Assessment & Plan (1) Vaginal delivery: PLAN: day 1. Breast-feeding. Pain well controlled. 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
[2022-01-25] MEDS: Ibuprofen 600 MG Tablet PO (11:55)
[2022-01-25] MEDS: FLU VACC QS2022-23(6MOS UP)/PF 60 MCG/0.5 ML SYRINGE IM (11:56)
[2022-01-25 12:10] VITALS: BP 116/58; PULSE 86; PULSE 87; RESP 18; TEMP 36.8; O2SAT 99
== END 2022-01-25 12:50 | disposition home or self-care (01) | DRG 560 ==
PROVIDERS: Student in an Organized Health Care Education/Training Program; Admitting Provider Obstetrics & Gynecology; Visit Provider Obstetrics & Gynecology
DX: O76 Abnormality in fetal heart rate and rhythm complicating labor and delivery (principal); Z37.0 Single live birth; O48.0 Post-term pregnancy; O71.82 Other specified trauma to perineum and vulva; Z3A.40 40 weeks gestation of pregnancy
CPT/HCPCS: 59025; 59050; 85025; 86850; 86900; 86901; 87811; 99218; J7120; 90686; G0378

== ENCOUNTER 2022-02-01 22:13 | Emergency (ER) | payer MEDICAID, SELFPAY ==
[2022-02-01 22:14] VITALS: BP 114/86; PULSE 94; RESP 16; TEMP 36.7; O2SAT 99; BMI 32.5
--- NOTE | 2022-02-01 22:42 | EX.ED.DYSGE1 ---
HPI History of Present Illness Chief Complaint: General Illness Informant: patient Narrative Narrative: 31-year-old female notes a several day history of sore throat runny nose cough and headache. No reported fevers. No vomiting or diarrhea. She gave about 1 week ago without any complications. She states she was COVID-negative when she came into the hospital. She notes that she is breast-feeding. She denies any rashes. No Significant pelvic pain or discharge. PFSH PFS Home Medications Prenatabs FA 1 tab PO DAILY 04/23/20 [History Last Taken 01/23/22] Allergy/AdvReac Type Severity Reaction Status Date / Time codeine AdvReac Nausea/Vom/ Verified 02/01/22 22:17 Diarrhea sulfamethoxazole AdvReac Upset Verified 02/01/22 22:17 [From ] Stomach trimethoprim [From ] AdvReac Upset Verified 02/01/22 22:17 Stomach Surgical History History of surgery Social History (Updated 02/01/22 @ 22:[address] aBrrett Tuttle DO) current gender identity: female Smoking Status: Never smoker ROS ROS ED Constitutional Constitutional ED: Denies chills, fever(s) or weight loss Eyes Eyes: Denies change in vision or diplopia ENT ENT ED: Reports rhinorrhea and sore throat; Denies ear pain Cardiovascular Cardiovascular: Denies chest pain, orthopnea, palpitations or racing heartbeat Respiratory/Chest Respiratory/Chest: Reports cough; Denies dyspnea or orthopnea Gastrointestinal Gastrointestinal: Denies abdominal pain, diarrhea, nausea or vomiting Genitourinary Genitourinary ED: Denies dysuria, hematuria or urinary frequency Musculoskeletal Musculoskeletal: Denies arthralgias or myalgias Integumentary Denies abscess or rash Neurologic Neurologic: Reports headache(s); Denies weakness Psychiatric Psychiatric: Denies anxiety, depression, suicidal ideation or suicidal thoughts Endocrine Endocrinology: Denies polydipsia, polyphagia or polyuria Allergic/Immunologic Allergic/Immunologic ED: Denies mouth swelling, tongue swelling or urticaria EXAM Physical Exam Const Vital Signs: 02/01/22 22:14 02/01/22 23:25 Temperature 98.0 F Temperature Source Temporal Pulse Rate 94 Respiratory Rate 16 Respiratory Effort Normal Blood Pressure 114/86 H Blood Pressure Mean 95 Pulse Ox 99 Oxygen Delivery Method Room Air MDM MDM MDM Narrative Medical decision making narrative: Patient's influenza is negative unfortunately her COVID-19 is positive. We talked about masking around her and signs and symptoms of infection. Patient is clinically appearing well and does not need to be hospitalized. I think she should do well with supportive care Discharge Plan Triage Chief Complaint: General Illness ED Provider: Barrett Tuttle Dx/Rx/DC Orders Clinical Impression: COVID-19 Instructions: Disinfecting Your Home of COVID-19 Prescriptions: No Action Prenatabs FA 1 tab PO DAILY Primary Care Provider: Care Physician,No Primary Referrals: Care Physician,No Primary [Primary Care Provider] - Disposition Disposition: Home, Self Care
[2022-02-01 23:58] VITALS: RESP 16; TEMP 36.8; O2SAT 99
== END 2022-02-01 23:59 | disposition home or self-care (01) ==
PROVIDERS: Emergency Provider Emergency Medicine; Visit Provider Emergency Medicine
DX: U07.1 COVID-19 (principal)
CPT/HCPCS: 87428; 99282

== ENCOUNTER 2022-08-26 05:02 | Emergency (ER) | payer MEDICAID, SELFPAY ==
[2022-08-26 05:03] VITALS: BP 111/64; PULSE 85; RESP 16; TEMP 36.1; O2SAT 99; BMI 32.5
--- NOTE | 2022-08-26 05:27 | EDS_ITS ---
HPI HPI - GI History of Present Illness Chief Complaint: Nausea/Vomiting/Diarrhea Narrative Narrative: 32-year-old female presenting with nausea, vomiting, diarrhea. She has 2 children who also have the same symptoms. The patient and her family went to check a cheese yesterday. The patient started having nausea and vomiting first and then her kids followed. Her has not had any symptoms yet. No fevers at home. No abdominal pain. No urinary symptoms. No cough, shortness of breath, rhinorrhea. PFSH PFSH Home Medications Prenatabs FA 1 tab PO DAILY 04/23/20 [History Last Taken 01/23/22] ondansetron 4 mg disintegrating tablet 4 mg PO Q8H PRN PRN Nausea #20 tabs 08/26/22 [Rx Last Taken Unknown] Allergy/AdvReac Type Severity Reaction Status Date / Time codeine AdvReac Nausea/Vom/ Verified 02/01/22 22:17 Diarrhea sulfamethoxazole AdvReac Upset Verified 02/01/22 22:17 [From ] Stomach trimethoprim [From ] AdvReac Upset Verified 02/01/22 22:17 Stomach Surgical History History of surgery Social History (Updated 02/01/22 @ 22:[address] Barrett Tuttle DO) Smoking Status: Never smoker ROS ROS ED Constitutional Constitutional ED: Denies chills, fever(s) or sweats Eyes Eyes: Denies blurry vision or change in vision ENT ENT ED: Denies ear pain or sore throat Cardiovascular Cardiovascular: Denies chest pain, palpitations or racing heartbeat Respiratory/Chest Respiratory/Chest: Denies cough, dyspnea or sputum Gastrointestinal Gastrointestinal: Reports diarrhea, nausea and vomiting; Denies abdominal pain or constipation Genitourinary Genitourinary ED: Denies dysuria, hematuria or urinary frequency Musculoskeletal Musculoskeletal: Denies arthralgias, myalgias or neck pain Integumentary Denies abscess, Abrasions or rash Neurologic Neurologic: Denies headache(s), paresthesias or weakness Psychiatric Psychiatric: Denies anxiety, depression, suicidal ideation or suicidal thoughts Endocrine Endocrinology: Denies polydipsia or polyuria EXAM Physical Exam Const Vital Signs: 08/26/22 05:03 Temperature 96.9 F L Temperature Source Temporal Pulse Rate 85 Respiratory Rate 16 Blood Pressure 111/64 Blood Pressure Mean 79 Pulse Ox 99 Oxygen Delivery Method Room Air Positive well nourished General Appearance ED: Negative for pallor HEENT Reports moist mucous membranes Eyes PERRL and EOMs intact bilaterally Resp normal respiratory effort Cardio regular rate and regular rhythm Neuro CN's II-XII intact bilaterally Sensorium / Orientation: alert Psych mental status grossly normal and thought process normal Skin no wounds General Skin Exam: Negative for jaundice or pallor MDM MDM MDM Narrative Medical decision making narrative: Given that she and her 2 children have nausea, vomiting, diarrhea I believe this is likely viral especially since they went to [employer] yesterday. Patient has normal vital signs. Physical exam unremarkable. I do not believe she needs any blood work or imaging. She is given Zofran p.o. and then will p.o. challenge. On reevaluation patient sleeping comfortably. No more vomiting. She will be discharged home with a prescription for Zofran. Impression: 1. Gastroenteritis Discharge Plan Triage Chief Complaint: Nausea/Vomiting/Diarrhea ED Provider: David Lock Dx/Rx/DC Orders Instructions: ED Gastroenteritis, Viral (Adult) Prescriptions: New ondansetron 4 mg tablet,disintegrating 4 mg PO Q8H PRN PRN (Reason: Nausea) Qty: 20 0RF No Action Prenatabs FA 1 tab PO DAILY Primary Care Provider: Care Physician,No Primary Referrals: Care Physician,No Primary [Primary Care Provider] - Disposition Disposition: Home, Self Care
[2022-08-26] MEDS: Ondansetron ODT 4 MG Tablet PO (05:37)
== END 2022-08-26 06:21 | disposition home or self-care (01) ==
PROVIDERS: Emergency Provider Student in an Organized Health Care Education/Training Program; Visit Provider Student in an Organized Health Care Education/Training Program
DX: K52.9 Noninfective gastroenteritis and colitis, unspecified (principal)
CPT/HCPCS: 99283

== ENCOUNTER 2023-02-07 08:24 | Emergency (ER) | payer MEDICAID, SELFPAY ==
[2023-02-07 08:25] VITALS: BP 120/60; PULSE 92; RESP 14; TEMP 36.4; O2SAT 98; BMI 30.9
--- NOTE | 2023-02-07 08:42 | EDS_ITS ---
HPI History of Present Illness Chief Complaint: General Illness Informant: patient Narrative Narrative: Patient presents with multiple complaints. She states that she had a positive home test about 7 weeks ago. She is not able to get into see [employer] SUPER[employer] until March and is scheduled to see someone at [facility]. She states about a week ago she stood up and felt a tearing sensation in her perineum. She has had pain since that time. Today she has noted some discharge that is slightly pink in color. Patient also reports URI symptoms that started yesterday. She has mild congestion and sore throat. No cough noted. PFSH PFSH Medical History no medical history no medical history Home Medications Prenatabs FA 1 tab PO DAILY 04/23/20 [History Last Taken 01/23/22] ondansetron 4 mg disintegrating tablet 4 mg PO Q8H PRN PRN Nausea #20 tabs 08/26/22 [Rx Last Taken Unknown] Allergy/AdvReac Type Severity Reaction Status Date / Time codeine AdvReac Nausea/Vom/ Verified 02/07/23 08:25 Diarrhea sulfamethoxazole AdvReac Upset Verified 02/07/23 08:25 [From Decra] Stomach trimethoprim [From ] AdvReac Upset Verified 02/07/23 08:25 Stomach Surgical History History of surgery Social History Smoking Status: Never smoker ROS ROS ED Constitutional Constitutional ED: Reports chills; Denies fever(s) Eyes Eyes: Denies change in vision or discharge from eye(s) ENT ENT ED: Reports sore throat and other Details: Congestion ; Denies discharge from eye(s) or rhinorrhea Cardiovascular Cardiovascular: Denies chest pain or palpitations Respiratory/Chest Respiratory/Chest: Denies cough or dyspnea Gastrointestinal Gastrointestinal: Denies diarrhea, nausea or vomiting Genitourinary Genitourinary ED: Reports other Details: Pelvic pain ; Denies dysuria Musculoskeletal Musculoskeletal: Denies back pain or extremity pain Integumentary Denies Abrasions or rash Neurologic Neurologic: Denies headache(s) or weakness Psychiatric Psychiatric: Denies anxiety or depression Allergic/Immunologic Allergic/Immunologic ED: Denies lip swelling or urticaria EXAM Physical Exam Const Vital Signs: 11/04/23 08:25 02/07/23 11:10 02/07/23 11:50 Temperature 97.6 F L Temperature Source Temporal Pulse Rate 92 94 95 Respiratory Rate 14 16 16 Blood Pressure 120/60 135/73 H 135/73 H Blood Pressure Mean 80 93 93 Pulse Ox 98 97 95 Oxygen Delivery Method Room Air Room Air Positive well nourished and well developed General Appearance ED: well developed HEENT Reports moist mucous membranes HEENT Narrative: 3+ tonsils. No exudate. Uvula midline. Eyes EOMs intact bilaterally Chest Wall inspection of chest normal and palpation of chest normal Resp normal respiratory effort and clear to auscultation bilaterally Cardio regular rate and regular rhythm GI non-tender Auscultation: hypoactive bowel sounds Palpation: soft Narrative: External exam with no lesions or rash. No significant discharge noted. Extremity normal to inspection Neuro oriented x3 and no sensory deficits noted Motor Exam: strength 5/5 throughout Psych mental status grossly normal Skin no rashes or lesions noted MDM MDM MDM Narrative Medical decision making narrative: Patient states that she is never required RhoGAM with her 3 prior pregnancies. hCG quant is obtained today. Urinalysis obtained to evaluate for infection/hematuria. Swab for COVID and influenza obtained as well as rapid strep. History & Record Review Discussion w/independent historian: Patient Lab Data Attestation: I reviewed the patient's lab results. Labs: Laboratory Results - last 24 hr 02/07/23 02/07/23 08:48 09:15 HCG, Quant [id number] H Urine Color Yellow Urine Clarity Clear Urine pH 6.0 Ur Specific Hawkins 1.015 Urine Protein 15 H Urine Glucose (UA) Normal Urine Ketones Negative Urine Occult Blood 250 H Urine Nitrite Negative Urine Bilirubin Negative Urine Urobilinogen Normal Ur Leukocyte Esterase 500 H Urine RBC 10-25 SEEN Urine WBC 0-5 SEEN Ur Squamous Epith Cells 5-10 SEEN Urine Bacteria 1+ Urine Mucus 0 SEEN Radiography Diagnostic Testing: Clinical Impression(s) from Imaging Studies Obstetrics Ultrasound 02/07/23 10:01 IMPRESSION: Single live intrauterine . Estimated gestational age is 7 weeks and 0 days. Nonvisualization of the right ovary secondary to overlying bowel gas Electronically Signed: Mireya Saavedra MD at 10:56 EDT , Treatment and Re-Evaluation :: hCG quant returns at 28,795. Urinalysis reveals 1+ bacteria with 5-10 epithelial cells and 0-5 white cells. No nitrites are noted. Pelvic ultrasound reveals single live intrauterine with estimated gestational age of 7 weeks. Nonvisualization of the right ovary is noted secondary to overlying bowel gas pattern. Swab for COVID and influenza is negative. Swab for rapid strep is negative. Test results are discussed with the patient. She will continue supportive care. She has follow-up [employer] appointment with [facility] group in March. She will continue Tylenol for her symptoms. Return instructions provided. Discharge Plan Triage Chief Complaint: General Illness ED Provider: Jerrica Marquez Dx/Rx/DC Orders Clinical Impression: First trimester , Viral URI Instructions: 1st Trimester, ED URI, Viral, No Abx (Adult) Prescriptions: No Action Prenatabs FA 1 tab PO DAILY ondansetron 4 mg tablet,disintegrating 4 mg PO Q8H PRN PRN (Reason: Nausea) Qty: 20 0RF Primary Care Provider: Care Physician,No Primary Referrals: Mine Raines DO [Med Staff - Active Staff] - [facility] appointment Care Physician,No Primary [Primary Care Provider] - Disposition Disposition: Home, Self Care Discharge Date/Time: 02/07/23 11:51
[2023-02-07 09:24] LABS: Mucous, Urine 0 SEEN /hpf (<or=2+)
[2023-02-07 09:37] LABS: Color, Urine Yellow (Yellow); Glucose, Dipstick Normal (Normal); Ketone-Dipstick Negative (Negative); Leukocyte Esterase-Dipstick 500 /ul (Negative); Nitrite-Dipstick Negative (Negative); Occult Blood-Urine 250 /ul (Negative); Protein-Dipstick 15 mg/dl (Negative); Specific Gravity, Urine 1.015 (1.002-1.030); Urine Bilirubin Dipstick Negative (Negative); Urine Clarity Clear (Clear); Urine Urobilinogen Normal (Normal)
[2023-02-07 09:48] LABS: Bacteria 1+ /hpf (None Seen); Red Blood Cells-Urine 10-25 SEEN /hpf (0-5); Squamous Epithelial Cells - UA 5-10 SEEN /hpf (5-10); White Blood Cells 0-5 SEEN /hpf (0-5)
[2023-02-07 09:56] LABS: hCG Titer Quant., Serum 28795 mIU/mL (1-3)
--- NOTE | 2023-02-07 10:01 | US_ITS ---
INDICATION: pain, spotting EXAMINATION: Ultrasound US OB Transvaginal TECHNIQUE: Transabdominal 3 pelvic ultrasound was performed. Grayscale, spectral waveform, and color flow Doppler evaluation of the adnexa. COMPARISON: No relevant prior comparison study available LMP: [February 17, 2023 Beta-hCG: Unknown FINDINGS: UTERUS: The uterus measures 9.8 x 6.1 x 7.1 cm. RIGHT OVARY: There is nonvisualization of the right ovary. LEFT OVARY: 3.4 x 2.2 x 3.1 cm. Normal. FREE FLUID: There is a small volume of free fluid. INTRAUTERINE GESTATIONAL SAC: Single. The mean sac diameter measures 2.14 cm. YOLK SAC: Identified POLE: The crown-rump length measures 0.78 cm. ESTIMATED GESTATION AGE: 7 weeks and 0 days. HEART MOTION: 126 bpm. PLACENTA: Not visualized due to age. SUBCHORIONIC HEMORRHAGE: None. AMNIOTIC FLUID: Qualitatively normal. US/Transvaginal w/Preg US IMPRESSION: Single live intrauterine . Estimated gestational age is 7 weeks and 0 days. Nonvisualization of the right ovary secondary to overlying bowel gas Electronically Signed: Mireya Saavedra MD at 10:56 EDT ,
[2023-02-07 11:10] VITALS: BP 135/73; PULSE 94; RESP 16; O2SAT 97
[2023-02-07 11:50] VITALS: BP 135/73; PULSE 95; RESP 16; O2SAT 95
== END 2023-02-07 11:51 | disposition home or self-care (01) ==
PROVIDERS: Emergency Provider Emergency Medicine; Visit Provider Emergency Medicine
DX: O99.511 Diseases of the respiratory system complicating pregnancy, first trimester (principal); J06.9 Acute upper respiratory infection, unspecified; O99.891 Other specified diseases and conditions complicating pregnancy; R10.2 Pelvic and perineal pain; Z3A.01 Less than 8 weeks gestation of pregnancy
CPT/HCPCS: 76817; 81001; 84702; 87428; 87880; 99283; A4216

== ENCOUNTER 2023-02-12 03:20 | Emergency (ER) | payer MEDICAID, SELFPAY ==
[2023-02-12 03:20] VITALS: BP 122/64; PULSE 74; RESP 18; TEMP 37; O2SAT 96; BMI 34.2
--- NOTE | 2023-02-12 03:42 | EDS_ITS ---
HPI HPI - URI History of Present Illness Chief Complaint: Cold Sx Informant: patient Onset/Context/Timing Onset: Weeks (1) Context: Gradual Onset Timing: Continuous Associated Symptoms Associated Symptoms: Positive for Nasal Congestion, Shortness of Breath (w/ coughing fits) and Nonproductive cough Narrative Narrative: Patient is about 8 weeks , for the past week or so she has had cold/flu symptoms. This includes nasal congestion, rhinorrhea, sore throat with radiation into the right ear area, red left eye which is irritated with occasional crusty discharge but nothing major, cough that feels like it is in her chest which is the major issue, gives her bronchospasm, all of which is worse when she lies down and making it hard for her to sleep which is why she comes to the emergency department at 3 AM. She has also developed hoarseness of voice. She states she was here couple days ago for the same thing, she had negative COVID and influenza swabs, and was told that she can take Tylenol. She is wondering if there is anything else she can take or anything else that we can do for this. ROS ROS ED Constitutional Constitutional ED: Denies chills or fever(s) Eyes Eyes: Reports as per HPI, discharge from eye(s) and erythema; Denies bloody eye or change in vision ENT ENT ED: Reports discharge from eye(s) left, ear pain right, hoarseness, nasal congestion, rhinorrhea and sore throat; Denies bloody eye Cardiovascular Cardiovascular: Denies chest pain or palpitations Respiratory/Chest Respiratory/Chest: Reports chest congestion and cough; Denies dyspnea on exer tion Gastrointestinal Gastrointestinal: Denies abdominal pain, diarrhea, nausea or vomiting Genitourinary Genitourinary ED: Denies dysuria or hematuria Musculoskeletal Musculoskeletal: Denies myalgias or neck pain Integumentary Denies abscess or rash Neurologic Neurologic: Reports headache(s); Denies paresthesias or weakness Psychiatric Psychiatric: Denies depression or suicidal thoughts Endocrine Endocrinology: Denies polydipsia or polyuria PFSH PFS Home Medications Prenatabs FA 1 tab PO DAILY 04/23/20 [History Last Taken 01/23/22] ondansetron 4 mg disintegrating tablet 4 mg PO Q8H PRN PRN Nausea #20 tabs 08/26/22 [Rx Last Taken Unknown] Allergy/AdvReac Type Severity Reaction Status Date / Time codeine AdvReac Nausea/Vom/ Verified 02/07/23 08:25 Diarrhea sulfamethoxazole AdvReac Upset Verified 02/07/23 08:25 [From ] Stomach trimethoprim [From ] AdvReac Upset Verified 02/07/23 08:25 Stomach Surgical History History of surgery Social History Smoking Status: Never smoker EXAM Physical Exam Const Vital Signs: 02/12/23 03:20 02/12/23 03:23 Temperature 98.6 F Temperature Source Temporal Pulse Rate 74 Respiratory Rate 18 Respiratory Effort Normal Non-Labored Respiratory Pattern Normal Blood Pressure 122/64 H Blood Pressure Mean 83 Pulse Ox 96 Oxygen Delivery Method Room Air Positive well nourished and well developed General Appearance ED: well developed and NAD HEENT Reports moist mucous membranes HEENT Narrative: TMs normal bilaterally normocephalic and atraumatic Face and Sinus: Negative for sinus tenderness Throat: Negative for posterior oropharynx abnormal Eyes PERRL and EOMs intact bilaterally Eyes Narrative: Bulbar and palpebral conjunctival injection on the left eye only, no chemosis, no active discharge Neck no lymphadenopathy, supple and no meningeal signs Resp normal respiratory effort and clear to auscultation bilaterally Cardio no murmurs Rate: regular rate Rhythm: regular rhythm Neuro oriented x3, CN's II-XII intact bilaterally and no sensory deficits noted Sensorium / Orientation: alert Motor Exam: strength 5/5 throughout Skin Lesions: no lesions Rashes: no rashes MDM MDM MDM Narrative Medical decision making narrative: With negative swabs and involvement of conjunctive a, this is consistent with adenovirus infection. Supportive care advised, I discussed specific medications that she can safely take while in the short-term for these symptoms. Vital signs noted, 96% on room air, she has clear lungs and occasional bronchospasmic hoarse cough all consistent with viral etiology. Discharge Plan Triage Chief Complaint: Cold Sx ED Provider: Hipolito Pearson Dx/Rx/DC Orders Clinical Impression: First trimester , Viral URI, Adenovirus infect Instructions: ED Bronchitis, No Antibiotic (Adult) Prescriptions: No Action Prenatabs FA 1 tab PO DAILY ondansetron 4 mg tablet,disintegrating 4 mg PO Q8H PRN PRN (Reason: Nausea) Qty: 20 0RF Primary Care Provider: Care Physician,No Primary Referrals: Care Physician,No Primary [Primary Care Provider] - Doctor,Your [Non-Staff] - 1 Week if not improving Activity Restrictions/Additional Instructions: While , you can safely take the following for your symptoms: Tylenol/acetaminophen for aches and pains/headaches Robitussin or Robitussin-DM (guaifenesin with or without dextromethorphan) for chest congestion and cough Benadryl (diphenhydramine or doxylamine) at nighttime for runny nose Albuterol inhaler as needed for coughing fits or wheezing Many [id number] cold and flu medications have combination to these medications. Many have decongestant such as phenylephrine or pseudoephedrine, studies have shown that this is safe to use for short period of time during as well, but minimize your exposure to this while if possible. If you need a decongestant, consider Afrin nasal spray or generic equivalent (oxymetazoline). For your eye, apply no drops or ointments and simply use a warm moist washcloth to gently wipe away crusty discharge if needed. Disposition Disposition: Home, Self Care
[2023-02-12] MEDS: guaiFENesin Dm 10 ML UDC PO (03:47)
== END 2023-02-12 04:15 | disposition home or self-care (01) ==
PROVIDERS: Emergency Provider Emergency Medicine; Visit Provider Emergency Medicine
DX: O99.511 Diseases of the respiratory system complicating pregnancy, first trimester (principal); J06.9 Acute upper respiratory infection, unspecified; Z3A.08 8 weeks gestation of pregnancy
CPT/HCPCS: 99282

== ENCOUNTER 2023-04-25 01:43 | Emergency (ER) | payer MEDICAID, SELFPAY ==
[2023-04-25 01:44] VITALS: BP 132/57; PULSE 98; RESP 18; TEMP 36.9; O2SAT 100; BMI 33.3
--- OUTSIDE RECORDS SUMMARY | 2023-04-25 02:02 | XMS RPT_ITS | CCD ---
Author Name Unknown Address [address] [place] [address] Organization [facility] Care Team Providers Care Epidemiologist Name Role Phone No, Physician Primary Care Provider Unavailabl e NO, PHYSICIAN Primary Care Unavailable GUILLERMINA WILLIAMSON Attending Unavailable ALDBEATA PRICE Admitting Unavailable ALDERMANBEATA Attending Unavailable NO, PHYSICIAN Primary Care Unavailable No, Physician Primary Care Provider Unavailabl e ALDBEATA PRICE Admitting Unavailable ALDERMANBEATA Attending Unavailable NO, PHYSICIAN Primary Care Unavailable ALDERMAN, BEATA WALTERE Admitting Unavailable NO, PHYSICIAN Primary Care Unavailable NO, PHYSICIAN Primary Care Unavailable ALDERMAN, BEATA MENDOSA Admitting Unavailable ALDERMAN, BEATA MENDOSA Referring Unavailable NO, PHYSICIAN Primary Care Unavailable ALDERMAN, BEATA MENDOSA Admitting Unavailable ALDERMAN, BEATA DEONDRE Referring Unavailable NO, PHYSICIAN Primary Care Unavailable ALDERMAN, BEATA DEONDRE Admitting Unavailable ALDERMAN, BEATA DEONDRE Referring Unavailable NO, PHYSICIAN Primary Care Unavailable ALDBEATA PRICE Attending Unavailable NO, PHYSICIAN Primary Care Unavailable ALDBEATA PRICE Attending Unavailable NO, PHYSICIAN Primary Care Unavailable JEF FREEMAN Attending Unavailabl e ESMER MARIA Referring Unavailabl e NO, PHYSICIAN Primary Care Unavailable ESMER MARIA Admitting Unavailabl e NO, PHYSICIAN Primary Care Unavailable SONAM NAGY Attending Unavaila ble ESMER MARIA Referring Unavailabl e NO, PHYSICIAN Primary Care Unavailable NO, PHYSICIAN Primary Care Unavailable GUILLERMINA ORONA Attending Unavailable GUILLERMINA ORONA Admitting Unavailable JOHANNA ELLIOTT Attending Unavaila ble NO, PHYSICIAN Primary Care Unavailable Unavailable Primary Care Provider Unavailabl HANS Sky Attending Unavailable LORNA DRIVER Referring Unavailable LORNA DRIVER Referring Unavailable LORNA DRIVER Attending Unavailable LORNA DRIVER Attending Unavailable Allergies Allergy Classification Reported Allergen(s) Allergy Type Date of Onset Reaction(s) Facility (19 sources) Codeine; Translations: [Unknown] Drug Allergy 6 GI Intolerance, Vomiting [facility] (10 sources) Sulfamethoxazole / Trimethoprim Drug Allergy 6 GI Intolerance [facility] (5 sources) Sulfamethoxazole; Translations: [SULFAMETHOXAZOLE] Drug Allergy 1 Vomiting, GI Upset [facility] Work Phone: (5 sources) Trimethoprim; Translations: [TRIMETHOPRIM] Drug Allergy 1 GI Upset, Intolerance [facility] Work Phone: Medications Current Medications Medication Drug Class(es) Dates Sig (Normalized) Sig (Original) acetaminophen 325 mg / oxyCODONE hydrochloride 5 mg oral tablet (2 sources) Opioid Agonist Start: 05-19-2019 End: 05-24-2019 take 1 tablet by mouth once as needed for pain, then take 2 tablets by mouth every six hours as needed for pain, then take 5 tablets by mouth as needed for pain oxyCODONE-acetami nophen (PERCOCET) 5-325 mg per tablet Indications: Dermoid cyst of ovary, right Take 1 (one) tablet to 2 (two) tablets by mouth every 6 (six) hours as needed for pain (Days supply per fill: 5) . 20 tablet 0 05/19/2019 05/24/2019 Active docusate sodium 50 mg / sennosides, prison 8.6 mg oral tablet (3 sources) Start: 05-19-2019 End: 06-02-2019 take 1 tablet by mouth twice daily senna-docusate (SENNA-S) 8.6-50 mg Take 1 (one) tablet by mouth 2 (two) times a day Hold for loose stools. for 14 days . 28 tablet 0 05/19/2019 06/02/2019 Active Completed/Discontinued Medications Medication Drug Class(es) Dates Sig (Normalized) Sig (Original) acetaminophen 325 mg oral tablet (2 sources) Start: 05-19-2019 End: 05-19-2019 take 975 mg by mouth once 975 mg, Oral, Once, Blessing 05/19/19 at 0730, For 1 dose, Pre-Procedure Problems Active Problems Problem Classification Problem Date Documented Date Episodic/Chronic Abdominal pain (1 source) Pain in female pelvis; Translations: [Pelvic pain in female] Episodic Anxiety disorders (1 source) Mixed anxiety and depressive disorder; Translations: [Depression with anxiety] Chronic Hemorrhage during ; abruptio placenta; placenta previa (1 source) Bleeding from female genital tract during ; Translations: [Vaginal bleeding in ] Other and unspecified benign neoplasm (1 source) Teratoma of ovary; Translations: [Dermoid cyst] Other and unspecified benign neoplasm (1 source) Mature cystic teratoma of right ovary; Translations: [Dermoid cyst of ovary, right] Other complications of (4 sources) Maternal obesity complicating , childbirth and the puerperium, antepartum; Translations: [Obesity complicating , first trimester] Onset: 3 03-10-2023 Chronic Other complications of (5 sources) Viral disease in mother complicating , childbirth AND/OR puerperium; Translations: [Other viral diseases complicating , unspecified trimester] Onset: 3 02-23-2023 Episodic Other complications of (4 sources) High risk ; Translations: [Supervision of other high risk pregnancies, first trimester] Onset: 3 03-10-2023 Episodic Other and delivery including normal (20 sources) Normal ; Translations: [Term ] Onset: 9 12-16-2018 Episodic Other screening for suspected conditions (not mental disorders or infectious disease) (1 source) Patient encounter status; Translations: [Encounter for screening for nuchal translucency] 03-20-2023 Episodic Ovarian cyst (1 source) Cyst of ovary; Translations: [Ovarian cyst affecting , antepartum] Episodic Ovarian cyst (1 source) Cyst of right ovary; Translations: [Right ovarian cyst] Residual codes; unclassified (5 sources) FH: Congenital anomaly; Translations: [Family history of other congenital malformations, deformations and chromosomal abnormalities] Onset: 3 02-23-2023 Episodic Residual codes; unclassified (1 source) Gestation period, 11 weeks; Translations: [11 weeks gestation of ] 03-10-2023 Episodic Residual codes; unclassified (4 sources) FH: Brain disorder; Translations: [Family history of epilepsy and other diseases of the nervous system] Onset: 3 03-10-2023 Episodic Residual codes; unclassified (1 source) Gestation period, 13 weeks; Translations: [13 weeks gestation of ] 03-20-2023 Episodic Residual codes; unclassified (1 source) 11 weeks gestation of ; Translations: [11 weeks gestation of ] Onset: 3 Episodic Residual codes; unclassified (1 source) Postoperative state; Translations: [Postoperative state] Screening and history of mental health and substance abuse codes (4 sources) History of neurodevelopmental disorder; Translations: [Personal history of other mental and behavioral disorders] Onset: 3 03-10-2023 Episodic Unclassified (1 source) Preprocedural examination done; Translations: [Pre-op evaluation] Unclassified (1 source) Breast fed ; Translations: [ (infant)] Past or Other Problems Problem Classification Problem Date Documented Da te Episodic/Chronic Joint disorders and dislocations; trauma-related (4 sources) Subluxation complex (vertebral); Translations: [Subluxation complex (vertebral) of pelvic region] Onset: 11-26-2020 11-26-2020 Episodic Nonmalignant breast conditions (8 sources) Solitary cyst of breast; Translations: [Solitary cyst of right breast] Onset: 02-14-2019 02-14-2019 Episodic Other aftercare (1 source) Follow-up status; Translations: [Evaluate anatomy not seen on prior sonogram] Episodic Other connective tissue disease (4 sources) Muscle weakness; Translations: [Muscle weakness (generalized)] Onset: 11-26-2020 11-26-2020 Episodic Other non-traumatic joint disorders (1 source) Shoulder pain; Translations: [Acute pain of left shoulder] Episodic Other upper respiratory infections (1 source) Acute viral pharyngitis; Translations: [Acute viral pharyngitis] Episodic Polyhydramnios and other problems of amniotic cavity (1 source) Subchorionic hematoma; Translations: [Subchorionic hemorrhage of placenta in first trimester, single or unspecified fetus] Episodic Residual codes; unclassified (7 sources) Gestation period, 40 weeks; Translations: [40 weeks gestation of ] Onset: 02-14-2019 02-14-2019 Episodic Results Test Name Value Interpretation Reference Range Facil ity Vital Signs Date Time Vital Sign Value Performing Clinician Nikkie gross 03-10-2023 12:40-0500 Body height 162.6 cm Lorna Villa LOZADA.CNM Work Phone: [facility] 03-10-2023 12:40-0500 Body weight 87.82 kg Lorna Villa OWENSN.CNM Work Phone: [facility] 03-10-2023 12:40-0500 Diastolic blood pressure 68 mm[Hg] Lorna Villa INTERIOR DESIGN PROGRAM CHAIR.CNM Work Phone: [facility] 03-10-2023 12:40-0500 Systolic blood pressure 112 mm[Hg] Lorna Villa OWENSN.CNM Work Phone: [facility] 06-02-2019 10:24-0500 BMI (Body Mass Index) 28.67 kg/m2 [facility] 06-02-2019 10:24-0500 Body Temperature 98.01 [degF] [facility] 06-02-2019 10:24-0500 Body weight 75.75 kg [facility] 06-02-2019 10:24-0500 BP Diastolic 53 mm[Hg] [facility] 06-02-2019 10:24-0500 BP Systolic 106 mm[Hg] [facility] 06-02-2019 10:24-0500 Height 162.6 cm [facility] 06-02-2019 10:24-0500 Pulse (Heart Rate) 83 /min [facility] 06-02-2019 10:24-0500 Pulse Oximetry 97 % [facility] 06-02-2019 10:24-0500 Respiratory Rate 16 /min [facility] 05-19-2019 09:26-0500 Body Temperature 97.2 [degF] [facility] 05-19-2019 09:26-0500 BP Diastolic 71 mm[Hg] [facility] 05-19-2019 09:26-0500 BP Systolic 115 mm[Hg] [facility] 05-19-2019 09:26-0500 Pulse (Heart Rate) 74 /min [facility] 05-19-2019 09:26-0500 Pulse Oximetry 98 % [facility] 05-19-2019 09:26-0500 Respiratory Rate 14 /min [facility] 05-19-2019 06:09-0500 BMI (Body Mass Index) 29.28 kg/m2 [facility] [address] 1 [facility] 05-19-2019 06:09-0500 Body Temperature 97.59 [degF] [facility] [address] 1 [facility] 05-19-2019 06:09-0500 Body weight 77.38 kg [facility] [address] 1 [facility] 05-19-2019 06:09-0500 BP Diastolic 64 mm[Hg] [facility] [address] 1 [facility] 05-19-2019 06:09-0500 BP Systolic 111 mm[Hg] [facility] [address] 1 [facility] 05-19-2019 06:09-0500 Height 162.6 cm [facility] [address] 1 [facility] 05-19-2019 06:09-0500 Pulse (Heart Rate) 75 /min [facility] [address] 1 [facility] 05-19-2019 06:09-0500 Pulse Oximetry 98 % [facility] [address] 1 [facility] 05-19-2019 06:09-0500 Respiratory Rate 15 /min [facility] [address] 1 [facility] 05-12-2019 09:56-0500 BMI (Body Mass Index) 28.56 kg/m2 [facility] 05-12-2019 09:56-0500 Body weight 76.66 kg Beata [facility] 05-12-2019 09:56-0500 Height 163.8 cm Beata [facility] 05-09-2019 07:51-0500 BMI (Body Mass Index) 29.01 kg/m2 Beata [facility] 05-09-2019 07:51-0500 Body Temperature 97.39 [degF] Beata [facility] 05-09-2019 07:51-0500 Body weight 76.66 kg Beata [facility] 05-09-2019 07:51-0500 BP Diastolic 73 mm[Hg] Beata [facility] 05-09-2019 07:51-0500 BP Systolic 117 mm[Hg] Beata [facility] 05-09-2019 07:51-0500 Height 162.6 cm Beata [facility] 05-09-2019 07:51-0500 Pulse (Heart Rate) 65 /min Beata [facility] 05-09-2019 07:51-0500 Pulse Oximetry 96 % Beata [facility] 05-09-2019 07:51-0500 Respiratory Rate 16 /min [facility] 02-16-2019 08:00-0500 Respiratory Rate 14 /min [facility] 02-16-2019 07:38-0500 Body Temperature 98.29 [degF] [facility] 02-16-2019 07:38-0500 BP Diastolic 74 mm[Hg] [facility] 02-16-2019 07:38-0500 BP Systolic 115 mm[Hg] [facility] 02-16-2019 07:38-0500 Pulse (Heart Rate) 80 /min [facility] 02-16-2019 07:38-0500 Pulse Oximetry 97 % [facility] 02-14-2019 06:08-0500 BMI (Body Mass Index) 31.41 kg/m2 [facility] 02-14-2019 06:08-0500 Body weight 83.01 kg [facility] 02-14-2019 06:08-0500 Height 162.6 cm [facility] 01-19-2019 13:20-0400 BMI (Body Mass Index) 32.1 kg/m2 [facility] 01-19-2019 13:20-0400 Body Temperature 97.9 [degF] Guillermina [facility] 01-19-2019 13:20-0400 Body weight 84.82 kg [facility] 01-19-2019 13:20-0400 BP Diastolic 74 mm[Hg] [facility] 01-19-2019 13:20-0400 BP Systolic 113 mm[Hg] Guillermina [facility] 01-19-2019 13:20-0400 Height 162.6 cm [facility] 01-19-2019 13:20-0400 Pulse (Heart Rate) 84 /min [facility] 01-19-2019 13:20-0400 Pulse Oximetry 99 % Guillermina [facility] 01-19-2019 13:20-0400 Respiratory Rate 18 /min Guillermina [facility] 06-30-2018 09:59-0400 BP Diastolic 68 mm[Hg] Guillermina [facility] 06-30-2018 09:59-0400 BP Systolic 115 mm[Hg] Guillermina [facility] 06-30-2018 09:59-0400 Pulse (Heart Rate) 80 /min Guillermina Williamson [facility] 06-30-2018 09:59-0400 Pulse Oximetry 100 % Guillermina Dov [facility] 06-30-2018 09:59-0400 Respiratory Rate 16 /min Guillermina Williamson [facility] 06-30-2018 06:12-0400 Body Temperature 98.4 [degF] Guillermina Williamson [facility] 06-30-2018 06:12-0400 Height 162.6 cm Guillermina Dov [facility] Encounters Encounter Date Encounter Type Care Provider Facility Start: 04-07-2023 End: 04-07-2023 ambulatory HANS CARBAJAL Facility:[facility] Start: 03-20-2023 End: 03-20-2023 ambulatory LORNA DRIVER Facility:[facility] Start: 03-20-2023 End: 03-20-2023 Patient encounter procedure [facility] Work Phone: OB/Gynecology Procedures Date Procedure Procedure Detail Performing Clinician Start: 03-20-2023 Us nuchal translucency 1st gestation Lorna Driver APRN.CNM Work Phone: Start: 05-19-2019 Blood type and Indirect antibody screen panel - Blood Beata Neff Work Phone: Start: 05-19-2019 Choriogonadotropin ( test) [Presence] in Urine Beata Neff Work Phone: Start: 05-12-2019 SCAN OTHER ORDERS Provider Not In Syst em Start: 04-18-2019 Transvaginal ultrasonography of pelvis Beata Neff Work Phone: Start: 02-14-2019 Blood type and Indirect antibody screen panel - Blood Astrid Ng Work Phone: Start: 02-14-2019 Complete blood count (hemogram) panel - Blood by Automated count Astrid Ng Work Phone: Start: 02-14-2019 Treponema pallidum IgG Ab [Presence] in Serum Astrid Ng Work Phone: Start: 01-19-2019 Streptococcus pyogenes Ag [Presence] in Throat Olive Cage Work Phone: Start: 12-16-2018 Us preg uterus real time f/u trnsabdl per fetus Lia Gonzales Work Phone: Start: 10-25-2018 Us preg uterus after 1st trimest 04/06 gestation Lia Gonzales Work Phone: Start: 07-08-2018 Microscopic observation [Identifier] in Cervix by Cyto stain Sonam Traradha Start: 06-30-2018 Us uterus 14 wk transabdl 04/06 gestat Chiquis Casas Work Phone: Start: 06-30-2018 Urinalysis Chiquis gomes Work Phone: Start: 06-30-2018 Basic metabolic 2000 panel - Serum or Plasma Chiquis Casas Work Phone: Start: 06-30-2018 Choriogonadotropin [Units/volume] in Serum or Plasma Chiquis Casas Work Phone: Start: 06-30-2018 Complete blood count with white cell differential, automated Chiquis Casas Work Phone: Start: 06-30-2018 Complete blood count with white cell differential, manual Chiquis Casas Work Phone: Plan of Treatment Date Care Activity Detail Author Start: 12-05-2031 Urine microalbumin profile [facility] Start: 02-15-2029 Tetanus vaccination TETANUS EVERY 10 YR [facility] Start: 03-10-2028 Screening for malignant neoplasm of cervix [facility] Start: 03-10-2023 End: 06-09-2023 CBC panel - Blood by Automated count CBC Lab Routine Encounter for supervision of normal in multigravida 11 weeks gestation of Expected: 03/10/2023, Expires: 06/09/2023 [facility] Work Phone: Immunizations Immunization Date Immunization Notes Care Provider Fa cili 01-25-2022 influenza virus vacc ine, unspecified formulation Nurse Wstr Work Phone: [facility] 02-15-2019 influenza, injectabl e, quadrivalent, preservative free [facility] 02-15-2019 tetanus toxoid, redu riaz diphtheria toxoid, and acellular pertussis vaccine, adsorbed [facility] 02-15-2019 diphtheria, tetanus toxoids and acellular pertussis vaccine, unspecified formulation [facility] 02-15-2019 measles, mumps and rubella virus vaccine [facility] 02-15-2019 varicella zoster imm une globulin [facility] Payers Date Payer Category Payer Medicaid [employer] [id number] 2022-Present [phone] [address] [place] [address] Medicaid [id number] 2018 Medicaid [employer]ICA[employer] [place] [employer] MED[employer] xxxxxxxxxxx 2018-Present xxxxxxxxxxx [id number] 2018 Medicaid [id number] 2016 Medicaid [id number] 2016 Unknown 1991 Unknown [id number] 1991 Unknown [id number] 1991 Unknown [id number] 1991 Unknown [id number] 1991 Unknown [id number] 1991 Unknown [id number] 1991 Unknown [id number] 1991 Unknown [id number] 1991 Unknown [id number] 1991 Unknown [id number] 1991 Unknown [id number] 1991 Unknown [id number] 1991 Unknown [id number] 1991 Unknown [id number] 1991 Unknown [id number] Social History Date Type Detail Facility Start: 11-30-2018 End: 02-23-2023 Tobacco smoking status NHIS Never smoker [facility] Work Phone: Start: 11-30-2018 End: 03-10-2023 Alcohol intake Ex-drinker (finding) [facility] Start: 06-21-2018 Alcohol Comment NONE SINCE POS ITIVE TEST [facility] Start: 05-18-2018 [facility] Sex Assigned At Not on file [facility] Start: 02-23-2023 Tobacco use and exposure Smokeless tobacco non-user [facility] Work Phone: Start: 02-23-2023 End: 03-20-2023 History of Social function [facility] Start: 02-23-2023 End: 03-20-2023 Tobacco use panel [facility] National Score (1-100), lower number is lower risk 56 [facility] Start: 02-23-2023 Education 17 [facility] Start: 02-23-2023 Alcohol Comment rarely [facility] Start: 1990 Sex Assigned At Female [facility] Start: 02-23-2023 Gender identity Identifies as female gender (finding) [facility] Medical Equipment Procedure Code Equipment Code Equipment Origin al Text Equipment Identifier Dates Hemostat 5gm Erik sta - [id number] Start: 05-19-2019 Goals Date Patient Goal Desired Activity /State Personal health goal Clinical Notes 02-23-2023 to 04-07-2023 Telephone Encounter - Shannan Pedro, RN - 03/12/2023 9:03 AM ESTPrenatal Quick Notes - Darline Rose - 03/10/2023 4:34 PM ANSELMOCoLorna villanueva APRN.CNM - 03/10/2023 12:27 PM ESTPatient Instructions Note Date & Type Note Facility 04-07-2023 Note HNO ID: [id number] Author: Lorna Driver APRN.CNM Service: ? Author Type: Roughing Mill Operator Type: Progress Notes Filed: 04/07/2023 3:11 PM Note Text: OB point of care ultrasound was performed. See imaging tab for details. Lorna Driver APRN.CNM [facility] 03-12-2023 Miscellaneous Notes Formattin g of this note might be different from the original. 1st risk assessment form submitted 03/12/23 Shannan Pedro RN documented in this encounter [facility] 03-10-2023 Miscellaneous Notes Formattin g of this note might be different from the original. CHRIS- New OB visit today. Likely declining Aneuploidy and Carrier Screening. Agrees to US to confirm dates at next visit due to irregular menses. Is okay with NT evaluation. documented in this encounter [facility] 03-10-2023 Note HNO ID: [id number] Author: Lorna Driver APRN.CNM Service: ? Author Type: Roughing Mill Operator Type: Progress Notes Filed: 03/10/2023 5:23 PM Note Text: INITIAL OB ASSESSMENT OB Provider: Lorna Driver APRN CNM HPI: Max is a 32 year old White Female here to establish Obstetrical Care. Patient's last menstrual period was 12/18/2022 (exact date). from OB Dating Form. Cycles regular was unplanned but accepted Complaints: recurrent pain from incision of laparoscopy- pain since 2019 OB History T3 L3 SAB0 IAB0 Ectopic0 Multiple0 Live Births3 # 1 - Date: 02/14/19, Sex: Female, Weight: 7 lb 15 oz (3.6 kg), GA: 43w0d, Delivery: Vaginal, Spontaneous, Apgar1: None, Apgar5: None, Living: Living, Comments: Induced al to post dates, 7cm ovarian removed 6 weeks after delivery # 2 - Date: 04/23/20, Sex: Male, Weight: 8 lb 5 oz (3.771 kg), GA: 39w5d, Delivery: Vaginal, Spontaneous, Apgar1: None, Apgar5: None, Living: Living, Comments: Induction,AROM, superficial periurethral lac repaired, , 350cc # 3 - Date: 01/24/22, Sex: Female, Weight: 7 lb 15 oz (3.6 kg), GA: 40w1d, Delivery: Vaginal, Spontaneous, Apgar1: None, Apgar5: None, Living: Living, Comments: Induced due to decreased movement, periurethral lac.,EBL 300cc # 4 - Date: None, Sex: None, Weight: None, GA: None, Delivery: None, Apgar1: None, Apgar5: None, Living: None, Comments: None Previous history: Prior : never History of 4th degree laceration: No History of shoulder dystocia: No History of Hypertensive disorders including pre-eclampsia, chronic hypertension or gestational hypertension: No History of gestational diabetes: No Patient's Risk Screening for delivery: Have you had a prior omalley between 20w and 36w6d?: No MEDICAL/PSYCHOSOCIAL HISTORY: History of hemorrhage or bleeding concerns: No Thyroid Disease: No History of chronic hypertension: No History of pre-existing diabetes: No BMI 33.23 kg/(m2) History of abnormal pap: No Prior treatment for cervical dysplasia: none. History of STDs: None Tobacco use: No Caffeine use: one cup of Yes tea or soda a week Drug use: No Alcohol use: No Multivitamin with Folic acid: Yes Hinduism or heritage: No Would refuse blood transfusion if medically necessary: No Are you currently employed? No Do you have any history of depression, anxiety, PTSD, eating disorders or other mood problems: No Do you have any safety concerns or history of traumatic events that you would like to discuss with your provider: No SDOH Screening: How often does this describe you? I don't have enough money to pay my bills: Sometimes Within the past 12 months, have you worried that your food would run out before you had money to buy more: Never In the past 12 months, has lack of reliable transportation kept you from going to medical appointments or work, or from keeping things needed for daily living: Never In the past 12 months, have you had any concerns about having a place to live, or about the condition or quality of your housing: Never Are there any cultural or spiritual needs we should be aware of: No Depression/Anxiety Screening: denies symptoms of depression. OB Depression and Anxiety Screening- This Encounter (since 02/22/2023) Over the past 2 weeks have you felt down, depressed, or hopeless? Negative Over the past two weeks, have you felt little interest or pleasure in doing things?? Negative Feeling nervous, anxious or on edge 0-Not at all Not being able to stop or control worrying 0-Not al all Anxiety Pre-Screening Total (If >/= 3 additional questions will be reviewed) 0 Genetic Screening: Partner present: no Patient verbalized knowledge of partner family health history: Yes Do you or your partner have any personal or family history of defects not previously discussed: No Do you have history of a complicated by anomaly, genetic condition, or demise: No ACOG Recommended Screening Screening for early gestational diabetes testing: Criteria for early testing requires elevated BMI plus one other risk factor: BMI 33.23 kg/(m2) (risk factor if > than 25 or 23 in Americans) Additional risk factors: None She does meet ACOG criteria for early gestational DM screening. 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 [facility] 03-10-2023 History of Presen t illness Narrative INITIAL OB ASSESSMENT OB Provider: Lorna Driver APRN CNM HPI: Max is a 32 year old White Female here to establish Obstetrical Care. Patient's last menstrual period was 12/18/2022 (exact date). from OB Dating Form. Cycles regular was unplanned but accepted Complaints: recurrent pain from incision of laparoscopy- pain since 2019 OB History T3 L3 SAB0 IAB0 Ectopic0 Multiple0 Live Births3 # 1 - Date: 02/14/19, Sex: Female, Weight: 7 lb 15 oz (3.6 kg), GA: 43w0d, Delivery: Vaginal, Spontaneous, Apgar1: None, Apgar5: None, Living: Living, Comments: Induced al to post dates, 7cm ovarian removed 6 weeks after delivery # 2 - Date: 04/23/20, Sex: Male, Weight: 8 lb 5 oz (3.771 kg), GA: 39w5d, Delivery: Vaginal, Spontaneous, Apgar1: None, Apgar5: None, Living: Living, Comments: Induction,AROM, superficial periurethral lac repaired, , 350cc # 3 - Date: 01/24/22, Sex: Female, Weight: 7 lb 15 oz (3.6 kg), GA: 40w1d, Delivery: Vaginal, Spontaneous, Apgar1: None, Apgar5: None, Living: Living, Comments: Induced due to decreased movement, periurethral lac.,EBL 300cc # 4 - Date: None, Sex: None, Weight: None, GA: None, Delivery: None, Apgar1: None, Apgar5: None, Living: None, Comments: None Previous history: Prior : never History of 4th degree laceration: No History of shoulder dystocia: No History of Hypertensive disorders including pre-eclampsia, chronic hypertension or gestational hypertension: No History of gestational diabetes: No Patient's Risk Screening for delivery: Have you had a prior omalley between 20w and 36w6d?: No MEDICAL/PSYCHOSOCIAL HISTORY: History of hemorrhage or bleeding concerns: No Thyroid Disease: No History of chronic hypertension: No History of pre-existing diabetes: No BMI 33.23 kg/(m^2) History of abnormal pap: No Prior treatment for cervical dysplasia: none. History of STDs: None Tobacco use: No Caffeine use: one cup of Yes tea or soda a week Drug use: No Alcohol use: No Multivitamin with Folic acid: Yes Hinduism or heritage: No Would refuse blood transfusion if medically necessary: No Are you currently employed? No Do you have any history of depression, anxiety, PTSD, eating disorders or other mood problems: No Do you have any safety concerns or history of traumatic events that you would like to discuss with your provider: No SDOH Screening: How often does this describe you? I don't have enough money to pay my bills: Sometimes Within the past 12 months, have you worried that your food would run out before you had money to buy more: Never In the past 12 months, has lack of reliable transportation kept you from going to medical appointments or work, or from keeping things needed for daily living: Never In the past 12 months, have you had any concerns about having a place to live, or about the condition or quality of your housing: Never Are there any cultural or spiritual needs we should be aware of: No Depression/Anxiety Screening: denies symptoms of depression. OB Depression and Anxiety Screening- This Encounter (since 02/22/2023) Over the past 2 weeks have you felt down, depressed, or hopeless? Negative Over the past two weeks, have you felt little interest or pleasure in doing things? Negative Feeling nervous, anxious or on edge 0-Not at all Not being able to stop or control worrying 0-Not al all Anxiety Pre-Screening Total (If >/= 3 additional questions will be reviewed) 0 Genetic Screening: Partner present: no Patient verbalized knowledge of partner family health history: Yes Do you or your partner have any personal or family history of defects not previously discussed: No Do you have history of a complicated by anomaly, genetic condition, or demise: No ACOG Recommended Screening Screening for early gestational diabetes testing: Criteria for early testing requires elevated BMI plus one other risk factor: BMI 33.23 kg/(m^2) (risk factor if > than 25 or 23 in Americans) Additional risk factors: None She does meet ACOG criteria for early gestational DM screening. 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 No current facility-administered medications for this visit. Allergies As of Date: 03/10/2023 Allergen Noted Reaction CODEINE 02/20/2016 Vomiting SULFAMETHOXAZOLE 04/23/2020 Vomiting and GI Upset TRIMETHOPRIM 04/23/2020 GI Upset and Intolerance Fully Assessed 03/10/2023 Does patient have penicillin allergy: No REVIEW OF SYSTEMS: GENERAL: Negative for: Fever or Chills HEENT: Negative for: Headache, Impaired Vision, Ringing in Ears, Nosebleeds NECK: Negative for: Swelling, Pain, Stiffness RESPIRATORY: Negative for: Cough, Shortness of breath, Wheezing. Had episode 1 month ago resp virus. Used Albuterol inhaler for 1.5 wk. None since. GASTROINTESTINAL: Negative for: Heartburn, Constipation, Diarrhea, Blood in stool, Vomiting and Positive for: Heartburn. Chews peppermint gum for occasional nausea. MUSCULOSKELETAL: Negative for: Muscle or joint pain, stiffness, Joint swelling NEUROLOGIC/PSYCHIATRIC: Negative for: Weakness, Paralysis, Numbness, Tingling, Tremor, Anxiety, Depression, Memory loss SKIN: Negative for: Rash, Itching GENITOURINARY: Negative for: vaginal itching, vaginal discharge, hematuria or dysuria PHYSICAL EXAM: BP 112/68 Ht 5' 4 (1.63m) Wt 193 lb 9.6 oz (87.8kg) LMP 12/18/2022 BMI 33.21 kg/(m^2). GENERAL: pleasant in no apparent distress DERMATOLOGY: Normal, without lesions, non-icteric, and non-hirsute NECK: Supple, full range of motion, no adenopathy, and thyroid normal CHEST: Normal inspiratory effort. Lungs clear to auscultation. BREAST: soft, non-tender, symmetric, no dominant mass, normal nipple-areolar complex, no lymphadenopathy, and no nipple discharge ABDOMEN: soft, non-tender, and no masses NEURO: alert and oriented x3,exam grossly non-focal PELVIS: External genitalia normal without lesions. Perineal body intact. No vaginal or cervical lesions. Cervix closed, but tender, CMT noted. Swabs taken for GC/CT. Pap completed Limited OB ultrasound exam: single intrauterine , positive cardiac activity, and crown-rump length 11-12 wk OB Risk Screening: Completed, no positive findings documented. ASSESSMENT: 32 year old at 11w5d wks gestational age CORNELIO 09/24/2023 intrauterine 1. Encounter for supervision of normal in multigravida - ICD9: V22.1, ICD10: Z34.80 (primary diagnosis) 2. 11 weeks gestation of 3. Family history of cerebral palsy 4. Family history of autism - 5. Obesity due to excess calories affecting in first trimester PLAN: 1) Patient oriented to practice. Patient given new OB orientation folder. Discussed nutrition, folic acid supplementation, dietary guidelines, exercise, smoking, alcohol, caffeine, and drug use. Discussed gestational weight gain guidelines. Discussed routine OB labs including STD/HIV. Discussed how to access Your guide to a health and the Tower Hoist Operator. OB Community care order placed. Discussed aneuploidy and carrier screening. Regarding aneuploidy screening, nuchal translucency/first trimester early anatomy ultrasound and NIPT were discussed. Regarding carrier screening, the myriad screen was discussed. The risks/benefits and limitations of NIPT/aneuploidy screening were reviewed including the potential for false negative and false positive results. We discussed the availability of professional-society guided carrier screening and reviewed the conditions screened and limitations of screening. The availability of genetic counseling was reviewed. Information on aneuploidy/carrier screening was provided. The patient chooses: Aneuploidy screening: is uncertain. She will call back if she wants to proceed with screening. Pt aware of timing. and Carrier screening: uncertain . She and spouse disagree re: testing or not. He desires testing. Handouts provided Discussed hemoglobin electrophoresis. Patient: Accepts Patient offered option of Virtual Visits. Patient does not use [employer]. Unsure if she will make use of in future or not. Reviewed midwifery and tumbler plater services that are available. 2) Obesity (BMI >30), will order early glucose screen or Hemoglobin A1C. 3) CMT noted, vaginal swabs for GC/CT and Pap completed today 4) Reviewed warning signs/when and how to reach services. Follow up in 1-2 weeks for panel and UA for NT. Prn as needed. I spent 45 minutes in the visit, with more than 50% of the total [id number] time of the visit in counseling / coordination of care. Rose Coppola SNM TEACHING FORMING ACID DUMPER NOTE OF PERSONAL INVOLVEMENT IN CARE: I have interviewed the patient and updated the midwifery student's PFS history, and ROS as necessary. I have re-performed the HPI, Physical Examination, Assessment and Plan. Lorna Driver APRN.CNM documented in this encounter [facility] 03-10-2023 Instructions Duong Jones Cma - 03/10/2023 12:27 PM EST Please select the following link to access the [facility] Your Guide to a Healthy . [email or web address] documented in this encounter [facility] 02-23-2023 Note HNO ID: [id number] Author: Michaela Rice RN Service: ? Author Type: ? Type: Progress Notes Filed: 02/23/2023 4:47 PM Note Text: INITIAL OB ASSESSMENT OB Provider: Michaela Rice RN HPI: Max is a 32 year old White Female here to establish Obstetrical Care. Patient's last menstrual period was 12/18/2022 (exact date). from OB Dating Form. Cycles regular was unplanned but accepted Complaints: recurrent pain from incision of laparoscopy- pain since 2019 OB History T3 L3 SAB0 IAB0 Ectopic0 Multiple0 Live Births3 # 1 - Date: 02/14/19, Sex: Female, Weight: 7 lb 15 oz (3.6 kg), GA: 43w0d, Delivery: Vaginal, Spontaneous, Apgar1: None, Apgar5: None, Living: Living, Comments: Induced al to post dates, 7cm ovarian removed 6 weeks after delivery # 2 - Date: 04/23/20, Sex: Male, Weight: 8 lb 5 oz (3.771 kg), GA: 39w5d, Delivery: Vaginal, Spontaneous, Apgar1: None, Apgar5: None, Living: Living, Comments: Induction,AROM, superficial periurethral lac repaired, , 350cc # 3 - Date: 01/24/22, Sex: Female, Weight: 7 lb 15 oz (3.6 kg), GA: 40w1d, Delivery: Vaginal, Spontaneous, Apgar1: None, Apgar5: None, Living: Living, Comments: Induced due to decreased movement, periurethral lac.,EBL 300cc # 4 - Date: None, Sex: None, Weight: None, GA: None, Delivery: None, Apgar1: None, Apgar5: None, Living: None, Comments: None Previous history: Prior : never History of 4th degree laceration: No History of shoulder dystocia: No History of Hypertensive disorders including pre-eclampsia, chronic hypertension or gestational hypertension: No History of gestational diabetes: No Patient's Risk Screening for delivery: Have you had a prior omalley between 20w and 36w6d?: No MEDICAL/PSYCHOSOCIAL HISTORY: History of hemorrhage or bleeding concerns: No Thyroid Disease: No History of chronic hypertension: No History of pre-existing diabetes: No No results found for: ABORHD No weight on file for this encounter. History of abnormal pap: No Prior treatment for cervical dysplasia: none. History of STDs: None Tobacco use: No Caffeine use: one cup of Yes tea or soda a week Drug use: No Alcohol use: No Multivitamin with Folic acid: Yes Hinduism or heritage: No Would refuse blood transfusion if medically necessary: No Are you currently employed? No Do you have any history of depression, anxiety, PTSD, eating disorders or other mood problems: No Do you have any safety concerns or history of traumatic events that you would like to discuss with your provider: No SDOH Screening: How often does this describe you? I don't have enough money to pay my bills: Sometimes Within the past 12 months, have you worried that your food would run out before you had money to buy more: Never In the past 12 months, has lack of reliable transportation kept you from going to medical appointments or work, or from keeping things needed for daily living: Never In the past 12 months, have you had any concerns about having a place to live, or about the condition or quality of your housing: Never Are there any cultural or spiritual needs we should be aware of: No Depression/Anxiety Screening: denies symptoms of depression. OB Depression and Anxiety Screening- This Encounter (since 02/22/2023) Over the past 2 weeks have you felt down, depressed, or hopeless? Negative Over the past two weeks, have you felt little interest or pleasure in doing things?? Negative Feeling nervous, anxious or on edge 0-Not at all Not being able to stop or control worrying 0-Not al all Anxiety Pre-Screening Total (If >/= 3 additional questions will be reviewed) 0 Genetic Screening: Partner present: Yes Patient verbalized knowledge of partner family health history: Yes Do you or your partner have any personal or family history of defects not previously discussed: No Do you have history of a complicated by anomaly, genetic condition, or demise: No ACOG Recommended Screening Screening for early gestational diabetes testing: Criteria for early testing requires elevated BMI plus one other risk factor: No weight on file for this encounter. (risk factor if > than 25 or 23 in Americans) Additional risk factors: None She does meet ACOG criteria for early gestational DM screening. 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 [facility] 02-23-2023 Miscellaneous Notes Formattin g of this note might be different from the original. DISTANCE HEALTH VISIT This Team Access Model visit is a phone encounter. It required patient-provider interaction for the medical decision making as documented below. I have communicated my name and active licensure. The patient's identity and physical location were verified at the time of this visit. Patient delivered her first child in [place] and last 2 children with [employer]. Patient states she had a 7 cm cyst removed 6 weeks after the delivery of her first child in [place]. I have asked patient to request her operative report to be sent to our office. Fax number provided. Patient was seen at [facility] with adenovirus on 2 separate occasions, once on and the other on February 12. Ultrasound was done on February 07 that revealed an intrauterine at 7 weeks 0 days. She states her symptoms have resolved. Patient states her mother was born with an extra muscle in her stomach that needed to be surgically removed . Patient declines aneuploidy screening and genetic carrier screening testing.Michaela Rice RN documented in this encounter [facility] 02-23-2023 History of Presen t illness Narrative INITIAL OB ASSESSMENT OB Provider: Michaela Rice RN HPI: Max is a 32 year old White Female here to establish Obstetrical Care. Patient's last menstrual period was 12/18/2022 (exact date). from OB Dating Form. Cycles regular was unplanned but accepted Complaints: recurrent pain from incision of laparoscopy- pain since 2019 OB History T3 L3 SAB0 IAB0 Ectopic0 Multiple0 Live Births3 # 1 - Date: 02/14/19, Sex: Female, Weight: 7 lb 15 oz (3.6 kg), GA: 43w0d, Delivery: Vaginal, Spontaneous, Apgar1: None, Apgar5: None, Living: Living, Comments: Induced al to post dates, 7cm ovarian removed 6 weeks after delivery # 2 - Date: 04/23/20, Sex: Male, Weight: 8 lb 5 oz (3.771 kg), GA: 39w5d, Delivery: Vaginal, Spontaneous, Apgar1: None, Apgar5: None, Living: Living, Comments: Induction,AROM, superficial periurethral lac repaired, , 350cc # 3 - Date: 01/24/22, Sex: Female, Weight: 7 lb 15 oz (3.6 kg), GA: 40w1d, Delivery: Vaginal, Spontaneous, Apgar1: None, Apgar5: None, Living: Living, Comments: Induced due to decreased movement, periurethral lac.,EBL 300cc # 4 - Date: None, Sex: None, Weight: None, GA: None, Delivery: None, Apgar1: None, Apgar5: None, Living: None, Comments: None Previous history: Prior : never History of 4th degree laceration: No History of shoulder dystocia: No History of Hypertensive disorders including pre-eclampsia, chronic hypertension or gestational hypertension: No History of gestational diabetes: No Patient's Risk Screening for delivery: Have you had a prior omalley between 20w and 36w6d?: No MEDICAL/PSYCHOSOCIAL HISTORY: History of hemorrhage or bleeding concerns: No Thyroid Disease: No History of chronic hypertension: No History of pre-existing diabetes: No No results found for: ABORHD No weight on file for this encounter. History of abnormal pap: No Prior treatment for cervical dysplasia: none. History of STDs: None Tobacco use: No Caffeine use: one cup of Yes tea or soda a week Drug use: No Alcohol use: No Multivitamin with Folic acid: Yes Hinduism or heritage: No Would refuse blood transfusion if medically necessary: No Are you currently employed? No Do you have any history of depression, anxiety, PTSD, eating disorders or other mood problems: No Do you have any safety concerns or history of traumatic events that you would like to discuss with your provider: No SDOH Screening: How often does this describe you? I don't have enough money to pay my bills: Sometimes Within the past 12 months, have you worried that your food would run out before you had money to buy more: Never In the past 12 months, has lack of reliable transportation kept you from going to medical appointments or work, or from keeping things needed for daily living: Never In the past 12 months, have you had any concerns about having a place to live, or about the condition or quality of your housing: Never Are there any cultural or spiritual needs we should be aware of: No Depression/Anxiety Screening: denies symptoms of depression. OB Depression and Anxiety Screening- This Encounter (since 02/22/2023) Over the past 2 weeks have you felt down, depressed, or hopeless? Negative Over the past two weeks, have you felt little interest or pleasure in doing things? Negative Feeling nervous, anxious or on edge 0-Not at all Not being able to stop or control worrying 0-Not al all Anxiety Pre-Screening Total (If >/= 3 additional questions will be reviewed) 0 Genetic Screening: Partner present: Yes Patient verbalized knowledge of partner family health history: Yes Do you or your partner have any personal or family history of defects not previously discussed: No Do you have history of a complicated by anomaly, genetic condition, or demise: No ACOG Recommended Screening Screening for early gestational diabetes testing: Criteria for early testing requires elevated BMI plus one other risk factor: No weight on file for this encounter. (risk factor if > than 25 or 23 in Americans) Additional risk factors: None She does meet ACOG criteria for early gestational DM screening. 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 No current facility-administered medications for this visit. Allergies As of Date: 02/23/2023 Allergen Noted Reaction CODEINE 02/20/2016 Vomiting SULFAMETHOXAZOLE 04/23/2020 Vomiting and GI Upset TRIMETHOPRIM 04/23/2020 GI Upset and Intolerance Fully Assessed 02/23/2023 Does patient have penicillin allergy: No documented in this encounter [facility] Diagnosis Encounter for supervision of normal in multigravida- Primary 11 weeks gestation of state, incidental Family history of cerebral palsy Family history of other neurological diseases History of autism Personal history of other mental disorder Obesity affecting in first trimester, unspecified obesity type Supervision of other high risk pregnancies, first trimester [facility] Diagnosis Encounter for (NT) nuchal translucency scan- Primary Other specified screening 13 weeks gestation of state, incidental [facility] Diagnostic Procedure Only (Routine) - Authorized Specialty Diagnoses / Procedures Referred By Reina rowe Referred To Contact [facility] Diagnoses Encounter for supervision of normal in multigravida 11 weeks gestation of Procedures NUCHAL TRANSLUCENCY WHI US NUCHAL TRANSLUCENCY 1ST GESTATION Lorna Driver APRN.CNM [address] [place] [address] [facility] [place] [address] Referral ID Status Reason Start Date Expiration Date Visits Requested Visits Authorized [id number] Authorized Auto-Generat ed Referral 03/10/2023 03/09/2024 1 1 * Diagnostic Procedure Only (Routine) - Pending Review Specialty Diagnoses / Procedures Referred By Reina rowe Referred To Contact [facility] Diagnoses Encounter for supervision of normal in multigravida 11 weeks gestation of Procedures OBSTETRIC ULTRASOUND WHI US PREG UTERUS AFTER 1ST TRIMEST GESTATION Lorna Driver APRN.CNM [address] [place] [address] [facility] [address] [place] [address] Referral ID Status Reason Start Date Expiration Date Visits Requested Visits Authorized [id number] Pending Review Auto-Generat ed Referral 03/10/2023 03/09/2024 1 1 [place] Clinic Assessments Diagnosis Ovarian cyst affecting , antepartum Diagnosis Pelvic pain in female Unspecified symptom associated with female genital organs Right ovarian cyst Other and unspecified ovarian cyst Diagnosis Solitary cyst of right breast Diagnosis Pre-op evaluation Dermoid cyst Depression with anxiety Dysthymic disorder (infant) Other specified conditions influencing health status Diagnosis Dermoid cyst of ovary, right Diagnosis Postoperative state Other postprocedural status Diagnosis Acute viral pharyngitis- Primary Acute pharyngitis Diagnosis Term 40 weeks gestation of Solitary cyst of right breast Diagnosis Acute pain of left shoulder- Primary Vaginal bleeding in Subchorionic hemorrhage of placenta in first trimester, single or unspecified fetus Diagnosis Evaluate anatomy not seen on prior sonogram Encounter for routine screening for malformation using ultrasonics Advance Directives No Advanced Directives Records FoundDocuments on File Type Date Recorded Patient Steam Fitter Expl anation Advance Directives and Livin g Will 06/30/2018 9:47 AM Documents on File Type Date Recorded Patient Steam Fitter Expl anation Advance Directives and Livin g Will 02/14/2019 1:46 PM Latest Code Status on File Code Status Date Activated Date Inactivated Comments Full Code 02/15/2019 12:39 AM Full Code 02/14/2019 6:41 AM 02/15/2019 12:39 AM Documents on File Type Date Recorded Patient Steam Fitter Expl anation Advance Directives and Livin g Will 05/19/2019 1:46 PM Latest Code Status on File Code Status Date Activated Date Inactivated Comments Full Code 02/15/2019 12:39 AM 05/19/2019 6:21 AM Documents on File Type Date Recorded Patient Steam Fitter Expl anation Advance Directives and Livin g Will 05/19/2019 1:46 PM Latest Code Status on File Code Status Date Activated Date Inactivated Comments Full Code 02/15/2019 12:39 AM 05/19/2019 6:21 AM Full Code 02/14/2019 6:41 AM 02/15/2019 12:39 AM Documents on File Type Date Recorded Patient Steam Fitter Expl anation Advance Directives and Livin g Will 01/19/2019 1:46 PM Summary Purpose Family History No Family History Records FoundNo Family History Records FoundNo Family History Records FoundNo Family History Records FoundNo Family History Records Found History of Present Illness * Beata Neff MD - 05/09/2019 8:20 AM EST CC: Chief Complaint Patient presents with Pre Op Visit Pt is here to sign surgery paperwork. HPI: Pt is 29 yo with complex right ovarian cyst suspected to be a dermoid cyst- 6 cm in largest diameter. Pt plans to have robotic assisted dermoid cyst removal and possibly right oophorectomy. Past Medical History: Diagnosis Date Anxiety Depression Environmental and seasonal allergies Past Surgical History: Procedure Laterality Date WISDOM TOOTH EXTRACTION Allergies Allergen Reactions Codeine GI Intolerance Septra [Sulfamethoxazole-Trimethoprim] GI Intolerance Outpatient Medications as of 05/09/2019 Medication Sig [id number] fumarate-FA () 28-800 mg-mcg Tab Take 1 tablet by mouth daily . Social History Tobacco Use Smoking status: Never Smoker Smokeless tobacco: Never Used Substance Use Topics Alcohol use: Not Currently Comment: NONE SINCE POSITIVE TEST Drug use: No No family history on file. Review of Systems - Denies fevers or chills. Denies N/V or change in bowel habits or abdominal pain. Denies urinary frequency, urinary urgency, dysuria, or incontinence. Denies abnormal vaginal bleeding or cramping or vaginal discharge. Denies hair, skin or weight changes. Denies anxiety or depression. Physical Exam BP 117/73 (BP Location: Right arm, Patient Position: Sitting, BP Cuff Size: Adult) Pulse 65 Temp 97.4 F (36.3 C) (Oral) Resp 16 Ht 5' 4 Wt 76.7 kg (169 lb) SpO2 96% BMI 29.01 kg/m Physical Exam Gen:NAD Assessment/Plan: Pre-op visit for RA right dermoid cyst removal 1. Surgery consent signed 2. Reviewed NPO time 3. Belly prep soln given 4. Reminded pt about pumping and dumping breast milk for 24 hours. documented in this encounter* Beata Neff MD - 06/02/2019 10:45 AM EST CC: Chief Complaint Patient presents with Post-op Pt is here for her post op visit after she had a Robotic Assisted right oophorectomy. She states she is doing well since surgery and not experiencing any problems. HPI: Pt had robotic assisted right oophorectomy for large right dermoid cyst. Says she has been fine sine, no trouble with bowels, bladder, nausea or vomiting. Says her umbilical incision is a bit more tender than her other incisions. Not using any pain medication or NSAID. Review of Systems - Denies fevers or chills. Denies N/V or change in bowel habits or abdominal pain. Denies urinary frequency, urinary urgency, dysuria, or incontinence. Denies abnormal vaginal bleeding or cramping or vaginal discharge. Denies hair, skin or weight changes. Denies anxiety or depression. Physical Exam BP (!) 106/53 (BP Location: Right arm, Patient Position: Sitting, BP Cuff Size: Adult) Pulse 83 Temp 98 F (36.7 C) (Oral) Resp 16 Ht 5' 4 Wt 75.8 kg (167 lb) LMP (LMP Unknown) Comment: post pardum delivered 02/14/2019 SpO2 97% BMI 28.67 kg/m Physical Exam Gen:NAD Abd: soft, non-tender, skin glue still in place, skin just beneath umbilical incision looks more pink- like may have been irritated by skin glue ripping off or other topical reaction Assessment/Plan: Max was seen today for post-op. Diagnoses and all orders for this visit: Postoperative state can return to work, but limit lifiting to 25# for next 2 weeks Path from surgery previously reviewed with pt- benign dermoid. documented in this encounter* Michaela Amaya RN - 02/16/2019 10:39 AM EST Patient and FOB attending discharge class. Watched Celebrate One video. Review d/c instructions including when to call 911, when to call Provider, when to schedule f/u appointments for patient and . AVS provided. Patient verbalizes understanding. * Beata Neff MD - 02/16/2019 6:52 AM EST Day #2 Pt seen today. No complaints. VSS Abdomen: firm fundus below umbilicus Extremities: NT Day #2 s/p vaginal delivery Routine FPC today * Esmer Maria DO - 02/15/2019 10:46 AM EST DAILY PROGRESS NOTE Patient Name: Max Echevarria MR #: [id number] Assessment/Plan: PPD# 1 Routine care. Discharge home tomorrow Subjective: Doing well, no complaints. Pain controlled. Lochia appropriate. Ambulating. Voiding. Tolerating diet. Objective: PACU Vitals 02/15/19 0752 BP: 104/71 Pulse: 69 Resp: 16 Temp: 97.9 F (36.6 C) SpO2: 96% General: alert, no distress Abdomen: soft, fundus firm Extremities: no LE edema documented in this encounter Discharge Instructions * Instructions* Pamela Dykes PA-C - 05/19/2019 GENERAL POST-OPERATIVE PATIENT INSTRUCTIONS ANESTHESIA PRECAUTIONS: A responsible adult must stay with you for at least 24 hours after surgery. You may feel light headed,, dizzy, or nauseated during this time. Do not operate a vehicle (car, bike, motorcycle, instructor watch assembly) machinery or power tools. Do not make any important decisions or drink any alcoholic beverages for 24 hours. Children should remain quiet today. No riding of bicycles, motorcycles, skateboards, playing on swings etc. Drink plenty of fluids today. Eat a light meal. Resume regular diet tomorrow. FOLLOW-UP: Please make an appointment with your physician for follow-up. Call your physician immediately if you have any fevers greater than 101, drainage from your wound that is not clear or looks infected, persistent bleeding, increasing abdominal pain, problems urinating, or persistent nausea/vomiting. DIET: You may eat any foods that you can tolerate. It is a good idea to eat a high fiber diet and take in plenty of fluids to prevent constipation. If you do become constipated you may want to take amild laxative or take ducolax tablets on a daily basis until your bowel habits are regular. Constipation can be very uncomfortable, along with straining, after recent surgery. ACTIVITY: You are encouraged to cough and deep breath or use your incentive spirometer if you were given one, every 15-30 minutes when awake. This will help prevent respiratory complications and low grade fevers post-operatively if you had a general anesthetic. You are encouraged to walk and engagein light activity for the next two weeks. MEDICATIONS: Try to take narcotic medications and anti-inflammatory medications, such as ibuprofen,naprosyn, etc., with food. This will minimize stomach upset from the medication. Should you developnausea and vomiting from the pain medication, or develop a rash, please discontinue the medication and contact your physician. You should not drive, make important decisions, or operate machinery when taking narcotic pain medication. Do not take tylenol or tylenol products with narcotic medications. QUESTIONS: Please feel free to call your physician or the hospital bullet assembly press setter operator if you have any questions, and they will be glad to assist you. * Attachments The following attachments cannot be sent through Care Everywhere. * Laparoscopy: Post-op ([place]) documented in this encounter* Attachments The following attachments cannot be sent through Care Everywhere. * Sore Throat ([place]) * Viral Infections ([place]) documented in this encounter* Instructions* Michaela Amaya RN - 02/16/2019 Learning About Safe Sleep for Babies Why is safe sleep important? Enjoy your time with your baby, and know that you can do a few things to keep your baby safe. Following safe sleep guidelines can help prevent sudden syndrome (SIDS) and reduce other sleep-related risks. SIDS is the of a baby younger than 1 year with no known cause. Talk about these safety steps with your children's program coordinator providers, family, friends, and anyone else who spends time with your baby. Explain in detail what you expect them to do. Do not assume that people who care for your baby know these guidelines. What are the tips for safe sleep? Putting your baby to sleep Put your baby to sleep on his or her back, not on the side or tummy. This reduces the risk of SIDS. Once your baby learns to roll from the back to the belly, you do not need to keep shifting your baby onto his or her back. But keep putting your baby down to sleep on his or her back. Keep the room at a comfortable temperature so that your baby can sleep in lightweight clothes without a blanket. Usually, the temperature is about right if an adult can wear a long-sleeved T-shirt and pants without feeling cold. Make sure that your baby doesn't get too warm. Your baby is likely toowarm if he or she sweats or tosses and turns a lot. Think about giving your baby a pacifier at nap time and bedtime if your doctor agrees. If your babyis breastfed, experts recommend waiting 3 or 4 weeks until is going well before offering a pacifier. The [place] [employer] recommends that you do not sleep with your baby in the bed with you. When your baby is awake and someone is watching, allow your baby to spend some time on his or her belly. This helps your baby get strong and may help prevent flat spots on the back of the head. Cribs, cradles, bassinets, and bedding For the first 6 months, have your baby sleep in a crib, cradle, or bassinet in the same room where you sleep. Keep soft items and loose bedding out of the crib. Items such as blankets, stuffed animals, toys, and pillows could block your baby's mouth or trap your baby. Dress your baby in sleepers instead of using blankets. Make sure that your baby's crib has a firm mattress (with a fitted sheet). Don't use sleep positioners, bumper pads, or other products that attach to crib slats or sides. They could block your baby'smouth or trap your baby. Do not place your baby in a car seat, sling, swing, bouncer, or stroller to sleep. The safest placefor a baby is in a crib, cradle, or bassinet that meets safety standards. What else is important to know? More about sudden infant syndrome (SIDS) SIDS is very rare. In most cases, a parent or other caregiver puts the baby who seems healthy down to sleep and returns later to find that the baby has . No one is at fault when a baby dies of SIDS. A SIDS cannot be predicted, and in many cases it cannot be prevented. Doctors do not know what causes SIDS. It seems to happen more often in premature and xpc-erkzj-imbjge babies. It also is seen more often in babies whose mothers did not get medical care during the and in babies whose mothers smoke. Do not smoke or let anyone else smoke in the house or around your baby. Exposure to smoke increasesthe risk of SIDS. If you need help quitting, talk to your doctor about stop-smoking programs and medicines. These can increase your chances of quitting for good. your child may help prevent SIDS. Be wary of products that are billed as helping prevent SIDS. Talk to your doctor before buying any product that claims to reduce SIDS risk. What to do while still See your doctor regularly. Women who see a doctor early in and throughout their pregnancies are less likely to have babies who of SIDS. Eat a healthy, balanced diet, which can help prevent a premature baby or a baby with a low weight. Do not smoke or let anyone else smoke in the house or around you. Smoking or exposure to smoke during increases the risk of SIDS. If you need help quitting, talk to your doctor about stop-smoking programs and medicines. These can increase your chances of quitting for good. Do not drink alcohol or take illegal drugs. Alcohol or drug use may cause your baby to be born early. Follow-up care is a montoya part of your child's treatment and safety. Be sure to make and go to all appointments, and call your doctor if your child is having problems. It's also a good idea to know your child's test results and keep a list of the medicines your child takes. Where can you learn more? Log into your personal health record on [email or web address] and enter E820 in the Education box to learn more about Learning About Safe Sleep for Babies. Current as of: March 17, 2018 Content Version: 12.20057178-1930 [email or web address]. Care instructions adapted under license by your healthcare professional. If you have questions about a medical condition or this instruction, always ask your healthcare professional. [employer] disclaims any warranty or liability for your use of this information. : Care Instructions Your Care Instructions After childbirth ( period), your body goes through many changes. Some of these changes happen over several weeks. In the hours after delivery, your body will begin to recover from childbirth while it prepares to breastfeed your . You may feel emotional during this time. Your hormones can shift your mood without warning for no clear reason. In the first couple of weeks after childbirth, many women have emotions that change from happy to sad. You may find it hard to sleep. You may cry a lot. This is called the baby blues. These overwhelming emotions often go away within a couple of days or weeks. But it's important to discuss your feelings with your doctor. It is easy to get too tired and overwhelmed during the first weeks after childbirth. Don't try to do too much. Get rest whenever you can, accept help from others, and eat well and drink plenty of fluids. In the first couple of weeks after giving , your doctor or mine car dispatcher may want to check in with you and make a plan for any follow-up care you may need. You will likely have a complete visit in the first 3 months after delivery. At that time, your doctor or mine car dispatcher will check on your recovery from childbirth. He or she will also see how you are doing with your emotions and talk aboutyour concerns or questions. Follow-up care is a montoya part of your treatment and safety. Be sure to make and go to all appointments, and call your doctor if you are having problems. It's also a good idea to know your test resultsand keep a list of the medicines you take. How can you care for yourself at home? Sleep or rest when your baby sleeps. Get help with community organization worker from family or friends, if you can. Do not try to do it all yourself. If you have hemorrhoids or swelling or pain around the opening of your vagina, try using cold and heat. You can put ice or a cold pack on the area for 10 to 20 minutes at a time. Put a thin cloth between the ice and your skin. Also try sitting in a few inches of warm water (sitz bath) 3 times a dayand after bowel movements. Take pain medicines exactly as directed. ? If the doctor gave you a prescription medicine for pain, take it as prescribed. ? If you are not taking a prescription pain medicine, ask your doctor if you can take an jvol-con-rvrxsog medicine. Eat more fiber to avoid constipation. Include foods such as whole-grain breads and cereals, raw vegetables, raw and dried fruits, and beans. Drink plenty of fluids, enough so that your urine is light yellow or clear like water. If you have kidney, heart, or liver disease and have to limit fluids, talk with your doctor before you increase the amount of fluids you drink. Do not rinse inside your vagina with fluids (douche). If you have stitches, keep the area clean by pouring or spraying warm water over the area outside your vagina and anus after you use the toilet. Keep a list of questions to ask your doctor or mine car dispatcher. Your questions might be about: ? Changes in your breasts, such as lumps or soreness. ? When to expect your menstrual period to start again. ? What form of control is best for you. ? Weight you have put on during the . ? Exercise options. ? What foods and drinks are best for you, especially if you are . ? Problems you might be having with . ? When you can have sex. Some women may want to talk about lubricants for the vagina. ? Any feelings of sadness or restlessness that you are having. When should you call for help? Call 911 anytime you think you may need emergency care. For example, call if: You have thoughts of harming yourself, your baby, or another person. You passed out (lost consciousness). You have chest pain, are short of breath, or cough up blood. You have a seizure. Call your doctor now or seek immediate medical care if: Your vaginal bleeding seems to be getting heavier. You are dizzy or lightheaded, or you feel like you may faint. You have a fever. You have new or more belly pain. You have symptoms of a blood clot in your leg (called a deep vein thrombosis), such as: ? Pain in the calf, back of the knee, thigh, or groin. ? Redness and swelling in your leg or groin. You have signs of preeclampsia, such as: ? Sudden swelling of your face, hands, or feet. ? New vision problems (such as dimness, blurring, or seeing spots). ? A severe headache. Watch closely for changes in your health, and be sure to contact your doctor if: You have new or worse vaginal discharge. You feel sad or depressed. You are having problems with your breasts or . Where can you learn more? Log into your personal health record on [email or web address] and enter Z768 in the Education box to learn more about : Care Instructions. Current as of: December 09, 2017 Content Version: [id number] [email or web address]. Care instructions adapted under license by your healthcare professional. If you have questions about a medical condition or this instruction, always ask your healthcare professional. [employer] disclaims any warranty or liability for your use of this information. documented in this encounter* Instructions* Duale, Ivanna Estela, TECHNICAL ENGINEER - 06/30/2018 Seek medical attention if you have worsening symptoms or other concerns. Please follow up with your family doctor or one of your choosing. You may find a provider through the [facility] Physician Referral Service by calling [phone] ([phone]) or by visiting [email or web address] Max, Thank You for choosing [facility]! Ultrasound results: Single viable intrauterine estimated gestational age of 8 weeks 1 day. Small subchorionic hemorrhage. 7.6 cm x 7.2 cm x 4.5 cm mixed echogenicity right adnexal mass questioning the possibility of a dermoid. Given the patient's status, follow-up ultrasound in 3-6 weeks to assure stability and/or resolution this finding is warranted. If findings do persist at a later date/, CT or MR of the pelvis could be pursued. I discussed these results with your CORPORATE SECURITIES RESEARCH ANALYST who is hr business partner consultant. To suggest follow-up ultrasound in the office in 3 weeks. Please call to make this appointment. Return immediately to the emergency department if you experience any pelvic pain, worsening bleeding or any other concerns. * Attachments The following attachments cannot be sent through Care Everywhere. * : Vaginal Bleeding ([place]aguayan) in this encounter Hospital Course * Beata Neff MD - 02/14/2019 9:54 PM EST DISCHARGE SUMMARY Patient: Max Echevarria Date of : 1990 Site: [facility] Family Provider: Physician No Admit Date: 02/14/2019 Discharge Date/Time: 02/16/19 Disposition: home Clinical Summary Hospital Course: Pt was admitted at 40w6d for post term induction of labor. She delivered via . coursewas uncomplicated. Discharge Diagnoses: 40 weeks gestation Surgeries: None Consults: No orders of the defined types were placed in this encounter. Allergies: Codeine and Septra [sulfamethoxazole-trimethoprim] Discharge Diet: regular Condition: good Discharge Medications: Current Discharge Medication List CONTINUE these medications which have NOT CHANGED Details [id number]-yjtcsqa fumarate-FA () 28-800 mg-mcg Tab Take 1 tablet by mouth daily . Qty: 30 tablet, Refills: 11 Physician(s) Family Provider: Physician Rebekah, Phone: None Address: [facility] Follow Up: Greta CORPORATE SECURITIES RESEARCH ANALYST in 5 wk Additional Information: Patient instructions, including activity, were given to the patient/family at discharge. Please seethe After Visit Summary in the electronic medical record for details. Time spent on discharge: < 30 minutes Completed by: Esmer Maria DO on 02/14/19, 9:54 PM documented in this encounter Health Concerns Problem Noted Date Diagnosed Date [facility] Education - [facility]ON 03/10/2023 Education - [place] 03/10/2023 Problem Noted Date Diagnosed Date [facility] Education - [facility] 03/10/2023 Education - [place] 03/10/2023 Problem Noted Date Diagnosed Date [facility] Education - [facility] 03/10/2023 Education - [place] 03/10/2023 Additional Source Comments INFORMATION SOURCE (unrecogn ized section and content) DATE CREATED AUTHOR AUTHOR'S ORGANIZ ATION 05/19/2019 [facility] DATE CREATED AUTHOR AUTHOR'S ORGANIZ ATION 06/02/2019 [facility] DATE CREATED AUTHOR AUTHOR'S ORGANIZ ATION 09/15/2019 [facility] DATE CREATED AUTHOR AUTHOR'S ORGANIZ ATION 04/08/2023 [facility] Reason for Visit (unrecogniz ed section and content) Reason Comments Pre Op Visit Pt is here to sign s urgery paperwork. Reason Comments Pre-operative Medical Risk Stratificatio n Status Reason Specialty Diagnoses / Procedures Referre d By Contact Referred To Contact Diagnoses DERMOID CYST Procedures IL LAP,RMV ADNEXAL STRUCTURE ROBOTIC ASSISTED RIGHT DERMOID CYST REMOVAL Reason Comments Post-op Pt is here for her p ost op visit after she had a Robotic Assisted right oophorectomy. She states she is doing well since surgery and not experiencing any problems. Reason Comments Otalgia Sore Throat Reason Comments Scheduled Induction Denies LOF, VB, and pain. +fm, coping well, feeling some ctx, Status Reason Specialty Diagnoses / Procedures Referre d By Contact Referred To Contact Diagnoses MATERNITY Reason Comments Shoulder Pain Vaginal Bleeding Reason Comments Care Reason Comments PRAF Reason Comments US Specialty Diagnoses / Procedures Referred By Contac t Referred To Contact [facility] Diagnoses Encounter for supervision of normal in multigravida 11 weeks gestation of Procedures NUCHAL TRANSLUCENCY WHI US NUCHAL TRANSLUCENCY 1ST GESTATION Lorna Driver APRN.CNM [address] [place] [address] [facility] [address] [place] [address] Referral ID Status Reason Start Date Expiration Date V isits Requested Visits Authorized [id number] Closed Auto-Generate d Referral 03/10/2023 03/09/2024 1 1 Pamela Dykes PA-C - 05/19/2019 6:11 AM Beata Monreal MD - 05/19/2019 6:53 AM Pamela Polo PA-C - 05/19/2019 6:11 AM EST H&P Notes (unrecognized sect ion and content) [facility] PRE-ADMISSION TESTING Patient Name: Max Mayers : 1990 MR #: [id number] Admit Date: Physicians: Physician No (Family); No ref. provider found (Referring) Max Mayers is a 29 y.o. female patient of Physician Rebekah presents for Same Day Preadmission testing for ROBOTIC ASSISTED RIGHT DERMOID CYST REMOVAL POSSIBLE RIGHT OOPHORECTOMY with on 05/19/19 at [facility]. Right Dermoid cyst on Right ovary Plan for ROBOTIC ASSISTED RIGHT DERMOID CYST REMOVAL POSSIBLE RIGHT OOPHORECTOMY with on 05/19/19 at [facility]. Preoperative Cardiac Assessment Denies CP, SOB. H/H to be reviewed. Patient has no active cardiac conditions and would be considered at an acceptable risk 3.9% based on a RCRI score of 0-1. This patient has an activity level greater than 4 MET's and would be considered at an acceptable cardiac risk based on ACC/AHA guidelines. Patient may proceed with planned surgery without further testing. Risk for Sleep Apnea This patient has been determined to be at a low risk for ANGELITO based on a score of 0/3 on preprocedure sleep apnea assessement. Body mass index is 29.28 kg/m . Anticoagulants prior to surgery None VTE Prophylaxis Prophylaxis for prevention of deep vein thrombosis per primary surgical team. Please follow the 2012 ACCP guidelines. Depression with Anxiety Mood stable, no current medications state Currently Recent Otitis Media Resolved, completed Amoxicillin last week No current symptoms Afebrile Chief Complaint: Pre-Admission Testing History of Present Illness: Max Mayers is a 29 y.o. female patient of Physician No with history of Depression with anxiety, 3 months and breast feeding who presents for pre admission testing. Patient presents with known dermoid cyst to right ovary.. It has been present for 10 months and has failed to respond to conservative treatments. She denies pain, bleeding, or any other symptoms currently. Denies CP, SOB, fever/chills, cough Recent ear infection, completed Amoxicillin. Resolved Denies N/V/D. Denies any current urinary or bowel symptoms. Denies syncope, dizziness or palpitations. No PND, or edema. Denies significant cardiac or respiratory history. No prior history of CHF, DVT/PE, CKD, CVA or DM. Denies any recent antibiotic use. Denies any recent medication changes. Denies any history of ANGELITO, or symptoms. Denies any prior complications from anesthesia. Denies blood transfusions. The patient is now scheduled for ROBOTIC ASSISTED RIGHT DERMOID CYST REMOVAL POSSIBLE RIGHT OOPHORECTOMY with on 05/19/19 at [facility]. Please see above regarding the status of active medical conditions and assessment and plan for preoperative medical risk stratification. Past Medical History: Past Medical History: Diagnosis Date Anxiety Depression Environmental and seasonal allergies Past Surgical Hisory: Past Surgical History: Procedure Laterality Date WISDOM TOOTH EXTRACTION Family History: Family History Problem Relation Age of Onset Dementia Father Asthma Father Social History: Social History Tobacco Use Smoking Status Never Smoker Smokeless Tobacco Never Used Social History Substance and Sexual Activity Alcohol Use Not Currently Social History Substance and Sexual Activity Drug Use No Allergy Information: I have reviewed the patient's allergies. Codeine and Septra [sulfamethoxazole-trimethoprim] Home Medications: Home medications were reviewed. Outpatient Medications as of 05/19/2019 Medication Sig [id number] fumarate-FA () 28-800 mg-mcg Tab Take 1 tablet by mouth daily . ROS: The following system(s) were reviewed with pertinent positives noted in HPI: Const, Eyes, ENT, CV, Resp, GI,, Neuro, Musc, Skin, Endo, Heme/Lymph, Psych, Allergy PHYSICAL EXAMINATION: BP 111/64 (BP Location: Right arm, Patient Position: Sitting, BP Cuff Size: Adult) Pulse 75 Temp 97.6 F (36.4 C) Resp 15 Ht 5' 4 Wt 77.4 kg (170 lb 9.6 oz) LMP (LMP Unknown) Comment: post pardum delivered 02/14/2019 SpO2 98% Yes BMI 29.28 kg/m Physical Examination General: no acute distress, cooperative, alert and oriented x 3. HEENT: Head- normocephalic; Eyes- EOMI; Ears - hearing intact; Nose- no nasal discharge. CV: regular rate and rhythm; normal S1, S2; no murmur. No peripheral edema. Resp: lungs clear to auscultation bilaterally, without wheezes, rubs or rhonchi. No distress. Abdomen: soft, non-tender, non-distended, positive bowel sounds. MSK: No significant deformity or tenderness to palpation. Neuro: no gross deficits, normal speech; no focal findings or movement disorder noted Skin: normal coloration, texture and turgor; no lesions or eruptions Laboratory and Additional Data Reviewed: Laboratory 05/19/19 6:25 AM Medications 05/19/19 6:25 AM Transcriptions 05/19/19 6:25 AM Invalid input(s): NEUTOPHILPCT, EOSPCT Invalid input(s): CO2 No results found for: INR No results found for: POCGLU Radiology: No orders to display Previous Laboratory: No visits with results within 30 Day(s) from this visit. Latest known visit with results is: Visit on 03/21/2019 Component Date Value Ref Range Status Hemoglobin 03/21/2019 14.2 12.0 - 16.0 g/dL Final documented in this encounter INTERVAL HISTORY AND PHYSICAL Patient Name: Max Mayers Admit Date: MR #: [id number] : 1990 The H&P has been reviewed and the patient has been examined. I concur with the findings of the H&P. There are no significant changes. It is appropriate to proceed with the planned procedure. Beata Neff MD 05/19/2019 6:53 AM [facility] PRE-ADMISSION TESTING Patient Name: Max Mayers : 1990 MR #: [id number] Admit Date: Physicians: Physician No (Family); No ref. provider found (Referring) Max Mayers is a 29 y.o. female patient of Physician No presents for Same Day Preadmission testing for ROBOTIC ASSISTED RIGHT DERMOID CYST REMOVAL POSSIBLE RIGHT OOPHORECTOMY with on 05/19/19 at [facility]. Right Dermoid cyst on Right ovary Plan for ROBOTIC ASSISTED RIGHT DERMOID CYST REMOVAL POSSIBLE RIGHT OOPHORECTOMY with on 05/19/19 at [facility]. Preoperative Cardiac Assessment Denies CP, SOB. H/H to be reviewed. Patient has no active cardiac conditions and would be considered at an acceptable risk 3.9% based on a RCRI score of 0-1. This patient has an activity level greater than 4 MET's and would be considered at an acceptable cardiac risk based on ACC/AHA guidelines. Patient may proceed with planned surgery without further testing. Risk for Sleep Apnea This patient has been determined to be at a low risk for ANGELITO based on a score of 0/3 on preprocedure sleep apnea assessement. Body mass index is 29.28 kg/m . Anticoagulants prior to surgery None VTE Prophylaxis Prophylaxis for prevention of deep vein thrombosis per primary surgical team. Please follow the 2012 ACCP guidelines. Depression with Anxiety Mood stable, no current medications state Currently Recent Otitis Media Resolved, completed Amoxicillin last week No current symptoms Afebrile Chief Complaint: Pre-Admission Testing History of Present Illness: Max Mayers is a 29 y.o. female patient of Physician No with history of Depression with anxiety, 3 months and breast feeding who presents for pre admission testing. Patient presents with known dermoid cyst to right ovary.. It has been present for 10 months and has failed to respond to conservative treatments. She denies pain, bleeding, or any other symptoms currently. Denies CP, SOB, fever/chills, cough Recent ear infection, completed Amoxicillin. Resolved Denies N/V/D. Denies any current urinary or bowel symptoms. Denies syncope, dizziness or palpitations. No PND, or edema. Denies significant cardiac or respiratory history. No prior history of CHF, DVT/PE, CKD, CVA or DM. Denies any recent antibiotic use. Denies any recent medication changes. Denies any history of ANGELITO, or symptoms. Denies any prior complications from anesthesia. Denies blood transfusions. The patient is now scheduled for ROBOTIC ASSISTED RIGHT DERMOID CYST REMOVAL POSSIBLE RIGHT OOPHORECTOMY with on 05/19/19 at [facility]. Please see above regarding the status of active medical conditions and assessment and plan for preoperative medical risk stratification. Past Medical History: Past Medical History: Diagnosis Date Anxiety Depression Environmental and seasonal allergies Past Surgical Hisory: Past Surgical History: Procedure Laterality Date WISDOM TOOTH EXTRACTION Family History: Family History Problem Relation Age of Onset Dementia Father Asthma Father Social History: Social History Tobacco Use Smoking Status Never Smoker Smokeless Tobacco Never Used Social History Substance and Sexual Activity Alcohol Use Not Currently Social History Substance and Sexual Activity Drug Use No Allergy Information: I have reviewed the patient's allergies. Codeine and Septra [sulfamethoxazole-trimethoprim] Home Medications: Home medications were reviewed. Outpatient Medications as of 05/19/2019 Medication Sig [id number] fumarate-FA () 28-800 mg-mcg Tab Take 1 tablet by mouth daily . ROS: The following system(s) were reviewed with pertinent positives noted in HPI: Const, Eyes, ENT, CV, Resp, GI,, Neuro, Musc, Skin, Endo, Heme/Lymph, Psych, Allergy PHYSICAL EXAMINATION: BP 111/64 (BP Location: Right arm, Patient Position: Sitting, BP Cuff Size: Adult) Pulse 75 Temp 97.6 F (36.4 C) Resp 15 Ht 5' 4 Wt 77.4 kg (170 lb 9.6 oz) LMP (LMP Unknown) Comment: post tex delivered 02/14/2019 SpO2 98% Yes BMI 29.28 kg/m Physical Examination General: no acute distress, cooperative, alert and oriented x 3. HEENT: Head- normocephalic; Eyes- EOMI; Ears - hearing intact; Nose- no nasal discharge. CV: regular rate and rhythm; normal S1, S2; no murmur. No peripheral edema. Resp: lungs clear to auscultation bilaterally, without wheezes, rubs or rhonchi. No distress. Abdomen: soft, non-tender, non-distended, positive bowel sounds. MSK: No significant deformity or tenderness to palpation. Neuro: no gross deficits, normal speech; no focal findings or movement disorder noted Skin: normal coloration, texture and turgor; no lesions or eruptions Laboratory and Additional Data Reviewed: Laboratory 05/19/19 6:25 AM Medications 05/19/19 6:25 AM Transcriptions 05/19/19 6:25 AM Invalid input(s): NEUTOPHILPCT, EOSPCT Invalid input(s): CO2 No results found for: INR No results found for: POCGLU Radiology: No orders to display Previous Laboratory: No visits with results within 30 Day(s) from this visit. Latest known visit with results is: Visit on 03/21/2019 Component Date Value Ref Range Status Hemoglobin 03/21/2019 14.2 12.0 - 16.0 g/dL Final documented in this encounter Obstetrics History and Physical Assessment/Plan: 28 y.o. at 40w6d presents for scheduled induction of labor. Solitary cyst of right breast Assessment & Plan TAUS with persistent cyst, continue to follow - right sided solid appearing cyst measuring 6.25 x 4.87 x 4 cm 40 weeks gestation of Assessment & Plan -established with Dr. Neff - records reviewed; B pos/RI/GBS neg -cephalic by bedside ultrasound -NST reactive and reassuring on arrival Term Assessment & Plan 28 y.o. at 40w6d presents for scheduled elective induction of labor -cvx: /-2, cephalic -ATSO Dr. Neff -NPO/IVF -CEFM/toco -Admit labs pending -GBS neg; intrapartum PCN not indicated -plan for pitocin, AROM as needed for augmentation OB panel: Rubella immune, Varicella unknown, Syphilis NR, Hep B neg, HIV1/2 neg, GBS neg (01/05/19) Contraception Plan: will discuss CC: Chief Complaint Patient presents with Scheduled Induction Denies LOF, VB, and pain. +fm, coping well, feeling some ctx, HPI: Max Echevarria is a 28 y.o. at 40w6d who presents for scheduled elective induction of labor. Denies vaginal bleeding. Denies leaking fluid. Denies contractions. Reports movement. Review of Systems: The following ROS was otherwise negative, except as noted in the HPI: constitutional, HEENT, respiratory, cardiovascular, gastrointestinal, genitourinary, skin, musculoskeletal, neurological, psych OBGYN Provider : Dr. Neff Gynecologic History: Denies hx of abnl pap smears. Denies hx of STIs. Obstetrical History: OB History Para Term AB Living 1 0 0 0 0 0 SAB TAB Ectopic Multiple Live Births 0 0 0 0 0 # Outcome Date GA Lbr Ryan/2nd Weight Sex Delivery Anes PTL Lv 1 Current Past Medical History: Past Medical History: Diagnosis Date Anxiety Depression Environmental and seasonal allergies Medications: Outpatient Medications as of 02/14/2019 Medication Sig [id number]-[id number] fumarate-FA () 28-800 mg-mcg Tab Take 1 tablet by mouth daily . Allergies: Codeine and Septra [sulfamethoxazole-trimethoprim] Surgical History: Past Surgical History: Procedure Laterality Date WISDOM TOOTH EXTRACTION Family History: History reviewed. No pertinent family history. Social History: Social History Substance and Sexual Activity Alcohol Use Not Currently Comment: NONE SINCE POSITIVE TEST Social History Substance and Sexual Activity Drug Use No Social History Tobacco Use Smoking Status Never Smoker Smokeless Tobacco Never Used Physical Exam: BP 127/80 Pulse 90 Temp 98.7 F (37.1 C) (Oral) Resp 18 Ht 5' 4 (1.626 m) Wt 83 kg (183 lb) LMP 04/11/2018 SpO2 100% BMI 31.41 kg/m General: Alert, well appearing, no acute distress Head: Normocephalic, atraumatic Lungs: Non-labored respirations Abdomen: Gravid, soft, nontender Pelvic: External: External female genitalia without masses/lesions or tenderness Vagina: [place] mucosa with rugaeu, without abnormal discharge or lesions Cervix: No masses or lesions visualized, no cervical motion tenderness; 3/70/-2 Rectovaginal: deferred Extremities: No redness or tenderness Skin: Well perfused, normal coloration and turgor, no lesions or rashes visualized Neuro: Alert, oriented, normal speech, no focal deficits, moves extremities appropriately Psych: Appropriate, normal affect, appears stated age Osteopathic: No TART changes FHT: 130 baseline, mod prachi, +accels, neg decels [place]: Occasional ctx Labs: Admission on 02/14/2019 Component Date Value ABORh 02/14/2019 B Positive Antibody Screen 02/14/2019 Negative Specimen Expires 02/14/2019 02/17/2019 23:59 EST WBC 02/14/2019 8.05 RBC 02/14/2019 4.23 Hemoglobin 02/14/2019 12.7 Hematocrit 02/14/2019 37.7 MCV 02/14/2019 89.1 MCH 02/14/2019 30.0 MCHC 02/14/2019 33.7 Platelets 02/14/2019 195 RDW - CV 02/14/2019 13.2 MPV 02/14/2019 11.1 Nucleated RBC 02/14/2019 0.0 Nucleated RBC Abs 02/14/2019 0.00 D/w Dr. Neff. Associated attestation - Beata Neff MD - 02/14/2019 9:57 AM EST Agree with H&P by Dr. Plasencia.documented in this encounter Addendum Note - Pamela Dykes PA-C - 05/19/2019 7:55 AM ESTOp Note - Beata Neff MD - 05/19/2019 8:15 AM ESTBrief Op Note - Beata Neff MD - 05/19/2019 7:49 AM EST Miscellaneous Notes (unrecog nized section and content) Addended by: PAMELA DYKES on: 05/19/2019 07:55 AM Modules accepted: Orders documented in this encounter Procedure Note Surgeon: Dr. Beata Neff Pre-operative Diagnosis: 6 cm right ovarian dermoid cyst Post-operative Diagnosis: same Procedure: Robotic Assisted right oophorectomy Anesthesia: general Estimated Blood Loss: less than 50 mL Total IV Fluids: 500ml crystalloids Urine Output: 50 ml Specimens: right ovary with dermoid cyst Complications: None; patient tolerated the procedure well. Disposition: PACU - hemodynamically stable. Condition: stable Findings: 6 cm right ovary with appearance of dermoid cyst Indications: 29yo with suspected right ovarian dermoid cyst. Risks, benefits and expectations of surgery were discussed. After lengthy consultation, she is electing for surgery to remove the right ovarian dermoid and is aware of the possibility of right oophorectomy. Risks of surgery reviewed in great detail, risks of bleeding, infection, injury to surrounding organs, bowel, bladder, ureters, risks of anesthesia and blood clots discussed. All questions were answered and consent was obtained. Procedure: The patient was taken to the operating room where general anesthesia was found to be obtained without difficulty. She was prepped and draped in normal sterile fashion in the dorsal lithotomy position in [facility]. SCDs were placed and functioning prior to the induction of anesthesia. A Carroll retractor was then placed in the vagina to allow adequate visualization of the cervix. The anterior lip of the cervix was then grasped with a single-tooth tenaculum. The uterus was then carefully sounded to approximately 8 cm. The HUMI was placed. A Taylor catheter was placed under sterile condition at that time. We then turned our attention to the patient's abdomen where an approximately 1 cm supraumbilical transverse incision was then made with a scalpel after the area was first locally injected with 0.5% Marcaine with epinephrine. An 8mm bladeless robotic trocar was then inserted directly into the patient's abdomen under direct visualization with the [employer]. Trocar intraabdominal placement was confirmed directly via the laparoscope. The entry site was Inspected, there was no evidence of injury to the bowel or surrounding vasculature. The abdomen was then initially insufflated with CO2 gas to a pressure of approximately 15 then dropped to 12mmHg after all the ports were placed. The patient was placed in Trendelenburg position at that time and the bowel was allowed to fall out of the pelvis. The uterus was manipulated out of the pelvis. Thorough inspection of the patient's abdomen and pelvis then ensued at that time. Additional robotic trocars were placed in the patient's right and left sides approximately at the level of the umbilicus under direct visualization after they were first locally injected with 0.5% marcaine with epinephrine. An additional 8mm bladeless disposable trocar was placed in the patient's right upper quadrant as a means of assistance throughout the procedure, again first locally injected. The robot was then side docked at that time in the standard fashion. A bipolar grasper was placed in the robotic left arm and a monopolar scissors in the right. We then turned our attention to the robotic console. Once at the console, a thorough inspection of the patient's abdomen and pelvis then ensued with the findings noted above. The enlarge right ovary was not adhered to any other structure and it was amputated from the right IP ligament and the broad ligament and then the utero-ovarian ligament by progressively cauterizing with bipolar graspers and then cutting with the monopolar scissors. The cut edges were all hemostatic. Fabi was placed over all edges. The right ovary was placed in a bag and brought up to the umbilical incision. It was punctured and drained while in the bag and then the bag was able to be removed through the port site without spilling any of the contents of the dermoid. The umbilical incision was closed at the fascia using the Constantin-Coombs device and 0 vicryl and then the skin was closed using monocryl. All instruments were removed from the vagina. The patient tolerated the procedure well and was brought to the recovery room. Beata Neff MD Brief Post Operative Note Patient Name: Max Mayers : 1990 (29 y.o.) Date of Service: 05/19/2019 [facility]: [id number] Procedure(s): ROBOTIC ASSISTED RIGHT DERMOID CYST REMOVAL, RIGHT OOPHORECTOMY Pre-Operative Diagnoses: * DERMOID CYST Post-Operative Diagnoses: same Surgeon(s) and Role: * Beata Neff MD - Primary Anesthesiologist: Marcelino Grant DO SAFETY AND SECURITY MANAGER: Mary Ellen Karimi CRNA Battery Loader: Laisha Acosta RN Scrub Person: ST Tiana Scrub Person Assist: Jeremy Graham Operative findings: 6 cm right ovarian cyst without obvious salvageable ovarian tissue Intra and immediate post-operative complications: none Type of anesthesia used: General Estimated blood loss: 5 mL Estimated urine output: 0 mL Specimen(s): ID Type Source Tests Collected by Time Destination A : RIGHT OVARY WITH DERMOID Tissue Ovary, Right TISSUE EXAM Laisha Grant RN 05/19/2019 0747 Implant(s): Implant Name Type Inv. Item Serial No. Batch Freezer Operator Lot No. LRB No. Used Action HEMOSTAT 5GM FABI - [id number] HEMOSTAT 5GM FABI Paice [id number] Right 1 Implanted Drain(s): [REMOVED] Urethral Catheter Double-lumen;Non-latex 16 Fr. (Removed) Wound(s): Wound 05/19/19 Surgical Wound Abdomen Right (Active) Wound 05/19/19 Surgical Wound Perineum Right (Active) Beata Neff MD 05/19/2019 7:49 AM documented in this encounter I personally interviewed the patient. I personally examined the patient. I discussed the patient with LOCAL COMPANY HAZMAT DRIVER/PA. I agree with the LOCAL COMPANY HAZMAT DRIVER/PA treatment plan. I agree with the LOCAL COMPANY HAZMAT DRIVER/PA plan of care. I agree with the LOCAL COMPANY HAZMAT DRIVER/PA dispo as documented. Patient with a negative rapid strep test. Appears to be viral pharyngitis. Symptomatic treatment. documented in this encounter Mom and FOB attended DC class. information fully instructed. Subhash resource information provided for any needs after DC. In to check on progress. Mom reports nipple trauma to left nipple. Observe pinpoint blister on center of nipple face. Nipples are flat , making for difficult latch. Mom state's she is very tired from frequent feedings. Showed mom side lying position and instructed FOB how to assist mom with latch. latched well with tea cup hold. Breast is heavy though and infant tends to detach frequently. Discussed support of breast to assist sustained latch. Mom sat up and switched infant into football hold. Instructed in techniques and positioning to assist deep areolar latch. sustained better in football hold and suckled actively for remainder of feeding. Nipple wong and round upon detaching in sidelying position. Observe minimal crease in football position. Stressed importance of deep latch for best . Reviewed techniques to assist deep latch. Instructed in how to know is getting enough/signs of adequate milk transfer. Instructed in care of nipples to aid healing. Will continue to follow. Encouraged calls as needed for assist. 1325 In to assist with BF. Baby arouses easily to rooting with tactile and suck stim. does not open her mouth widely for latch initially but does have good suck and transitions to deep, painless latch within seconds. Baby has a sustained rhythmical suckling pattern with frequent audible swallowing. Signs of adequate nutrition reviewed with parents. Baby continues nursing as lc left room. Mom to call prn with needs. Vaginal Delivery Note A term viable female was delivered via w/ 'S 8/9 and weight pending. Patient reached complete dilation and pushed. Head delivered; nuchal cord times 0 noted. Shoulders delivered easily without dystocia. placed on mother's abdomen. Cord clamped and cut after 1 minute of life. Cord gases obtained. Placenta delivered spontaneously and complete. A small first degree perineal laceration was noted and repaired with 3-0 Vicryl. Bilateral periurethral lac was repaired with the same. This repair was close to urethra; straight cath of bladder was done easily for 100ml clear yellow urine. Anesthesia: epidural EBL: 300ml. No complications Diagnosis: Active Problems: Term 40 weeks gestation of Solitary cyst of right breast Swathi, Baby Girl Max [[id number]] Delivery Anesthesia Method: Epidural Operative Delivery Forceps attempted?: No Vacuum extractor attempted?: No Shoulder Dystocia Shoulder dystocia present: No Presentation Presentation: Vertex _: Occiput _: Posterior Information date/time: 02/14/192124 Gender: Female Delivery type: Vaginal, Spontaneous Delivery location: OB Unit Initial disposition: Routine NB Care ?: No Details: Delivery Providers Delivering clinician: Esmer Maria DO Other personnel: Provider Role Covering Attending Resident Roughing Mill Operator Violette Case, ground source heat pump technician Nurse Daisy Agee RN Registered Nurse Delivery Assist Nurse Practitioner Cord Vessels: 3 vessels Complications: None Delayed cord clamping?: Yes Cord clamped date/time: 02/14/20192125 Cord blood obtained?: Refrigerator Cord segment obtained?: Yes Gases sent?: Yes Stem cell collection (by Provider)?: No Placenta Date/time: 02/14/20192129 Removal: Spontaneous Appearance: Intact Disposition: Refrigerator Apgars No data filed [place] Measurements Weight: Lacerations Episiotomy: None Perineal lacerations: 1st Repaired: Yes Other Lacerations: periurethral laceration Periurethral laceration: bilateral Repaired: Yes Vaginal delivery est. blood loss (mL): 300 Repair suture: 3-0 Synthetic Suture, 3-0 Monocryl Number of repair packets: 2 Sponge Initial Count: 10 Needle Initial Count: 3 Counted By: Elmira FERRELL RN Verified By: Elmira CASE RN Sponge Final Count: 10 Needle Final Count: 5 Counted By: DR MARIA Verified By: Elmira CASE RN Other Procedures Procedures: None Paged by RN for AROM. AROM performed without difficulty with clear fluid. IUPC placed and functioning properly. FHTs currently category I. Continue pitocin as tolerated by maternal- unit. Associated Problem(s): Solitary cyst of right breast TAUS with persistent cyst, continue to follow - right sided solid appearing cyst measuring 6.25 x 4.87 x 4 cm Associated Problem(s): 40 weeks gestation of -established with Dr. Neff - records reviewed; B pos/RI/GBS neg -cephalic by bedside ultrasound -NST reactive and reassuring on arrival Associated Problem(s): Term 28 y.o. at 40w6d presents for scheduled elective induction of labor -cvx: /-2, cephalic -ATSO Dr. Neff -NPO/IVF -CEFM/toco -Admit labs pending -GBS neg; intrapartum PCN not indicated -plan for pitocin, AROM as needed for augmentation 28 y.o. at 40w6d presented to [facility] [place] [facility] for elective induction of labor. records were reviewed. GBS . She progressed to complete and delivered a viable on without complications. A laceration was repaired without difficulty. See delivery note for details. C/S: The risks/benefits/alternatives were discussed with the patient and the informed consent was signed. She was taken to the OR where she underwent a RLTCS under anesthesia w/o complications. See operative report for details. Post{Blank single:28859:: operatively , } she did well. Her hemoglobin stabilized at (from ). She met all discharge milestones including oral pain control, tolerating regular diet, ambulation, spontaneous voiding, and return of bowel function. She was stable for discharge to home on {Blank single:98646:: POD , PPD } #{NUMBER 0-5:38443} and will follow up with in weeks. documented in this encounter Split/shared visit note and ED attestation: I personally interviewed the patient. I personally examined the patient. I discussed the patient with LOCAL COMPANY HAZMAT DRIVER/PA. I agree with the LOCAL COMPANY HAZMAT DRIVER/PA treatment plan. I agree with the LOCAL COMPANY HAZMAT DRIVER/PA plan of care. I agree with the LOCAL COMPANY HAZMAT DRIVER/PA dispo as documented. . . Patient presents emerged by complaining of some left shoulder pain. On my examination she is only tender in the area of the trapezius and latissimus dorsi on the posterior aspect of the shoulder. She has excellent full complete range of motion. In addition she had some spotting. She is and based on her ultrasound she is just about 8 weeks along in this . She has small subchorionic hemorrhage. I did explain to her and her significantly what that implies. She also has a 7.6 x 7.2 x 4.5 cm mixed echogenicity in the right adnexa possibly concerning for dermoid. I explained to her what that implies especially emphasizing the possibility that something this large could result in torsion. I advised her to follow-up with her CORPORATE SECURITIES RESEARCH ANALYST in fact our nurse practitioner is going to try and contact her. I told the patient says any sudden onset of pain especially across the right side she needs to be seen immediately as it can cause torsion of the ovary and the ovary would if it is not picked up rapidly enough. [place] this encounter Soco Jerez RN - 05/12/2019 10:04 AM EST Nursing Notes (unrecognized section and content) [facility] Surgical Department Patient Instructions Prior to surgery: Please bathe the night before and the morning of your surgery to help prevent the chance of any surgical site infection. If your physician provided you with a special soap please use it Please be sure to remove any jewelry and piercing's, and leave all valuables at home. Please do not apply any lotions or makeup on the morning of surgery. Please do not eat or drink anything after midnight the night prior to your surgery unless otherwise instructed by your Surgeon. This includes gum, mints, water, coffee, smoking or chew- nothing at all should be eaten or drank after midnight. Please be prepared to remove your dentures, glasses, and contacts. If you were instructed to take any of your medications on the morning of surgery, please take them with small sips of water. Please remember to bring a list of your current medications, including any herbals and OTC's, on the day of surgery. You may brush your teeth in the morning as well as rinse out your mouth - but no swallowing. Please remember to bring your Insurance Card and photo ID with you on the day of surgery - we will make copies of these items and return them to you. Bring any Advance Directive if desired. Enter the building - ahead will be a podium and a guest service liaison who will greet you and direct you to the second floor waiting room. A nurse will meet you in the Surgery Waiting Room and will be the one to take you back to PreOp when they are ready for you. One adult may accompany you to PreOp if you so desire. We recommend Children under the age of 16 not accompany you to the hospital Please see that all cellular devices are put on silence to keep your environment calm. Please be sure to wear loose, casual clothing on the day of surgery. Shoulders - wear a button down or zippered shirt Knees - wear sweat pants, shorts, or loose fitting pants There may be a bulky dressing over the incision Please bring any assistive devices, such as crutches & walkers, with you on the day of surgery if you have them. If you have a diagnosis of Sleep Apnea we request that you bring your C-Pap machine with you After your surgery: If you are scheduled as an outpatient, a responsible licensed adult must be available for transportation, and is expected to remain at the hospital throughout the duration of your procedure. This person must be 18 years old or older. You are not allowed to drive yourself home. A responsible adult must stay with you for 24 hours following your surgery. This includes when being transported by a Medical Taxi documented in this encounter Olive Cage CNP - 01/19/2019 2:17 PM Sheela Linda RN - 01/19/2019 1:16 PM Sybil La RN - 06/30/2018 11:52 AM Sybil La RN - 06/30/2018 10:49 AM EDT ED Notes (unrecognized secti on and content) ED PROVIDER NOTE [facility] EMERGENCY DEPARTMENT NAME: Max Echevarria AGE: 28 y.o. : 1990 VISIT DATE: 01/19/2019 CSN: [id number] PCP: Physician No Chief Complaint Patient presents with Otalgia Sore Throat This is a 28-year-old female who is currently 37 weeks is presenting to the ER with complaints of bilateral ear pain and sore throat. Patient states her symptoms started today. 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 She denies difficulty swallowing. Denies any neck pain. Denies any shortness of breath. Denies any cough. Denies any postnasal drip. Denies any abdominal pain nausea vomiting vaginal bleeding or discharge. Denies oral swelling. Denies taking medication for the above problems. Past Medical History: Diagnosis Date Anxiety Depression Environmental and seasonal allergies Past Surgical History: Procedure Laterality Date WISDOM TOOTH EXTRACTION History reviewed. No pertinent family history. Social History Socioeconomic History Marital status: Single Spouse name: Not on file Number of children: Not on file Years of education: Not on file Highest education level: Not on file Occupational History Not on file Social Needs Financial resource strain: Not on file Food insecurity: Worry: Not on file Inability: Not on file Transportation needs: Medical: Not on file Non-medical: Not on file Tobacco Use Smoking status: Never Smoker Smokeless tobacco: Never Used Substance and Sexual Activity Alcohol use: Not Currently Comment: NONE SINCE POSITIVE TEST Drug use: No Sexual activity: Yes Partners: Male control/protection: None Lifestyle Physical activity: Days per week: Not on file Minutes per session: Not on file Stress: Not on file Relationships Social connections: Talks on phone: Not on file Gets together: Not on file Attends yazdanism service: Not on file Active member of club or organization: Not on file Attends meetings of clubs or organizations: Not on file Relationship status: Not on file Other Topics Concern Not on file Social History Narrative Not on file Previous Medications Medication Sig [id number] fumarate-FA () 28-800 mg-mcg Tab Take 1 tablet by mouth daily . Allergies Allergen Reactions Codeine Septra [Sulfamethoxazole-Trimethoprim] Review of Systems Constitutional: Negative for activity change, appetite change, chills and fever. HENT: Positive for ear pain, sneezing and sore throat. Negative for congestion, dental problem, drooling, ear discharge, facial swelling, hearing loss, mouth sores, nosebleeds, postnasal drip, sinus pressure, sinus pain, tinnitus and voice change. Respiratory: Negative for cough, chest tightness and shortness of breath. Cardiovascular: Negative for chest pain. Gastrointestinal: Negative for abdominal pain, nausea and rectal pain. Endocrine: Negative for polyuria. Genitourinary: Negative for difficulty urinating, dysuria, vaginal bleeding, vaginal discharge and vaginal pain. Musculoskeletal: Negative for gait problem. Skin: Negative for color change. Neurological: Negative for dizziness, syncope, weakness, light-headedness and headaches. Psychiatric/Behavioral: Negative for confusion. All other systems reviewed and are negative. Patient Vitals for the past 24 hrs: BP Temp Temp src Pulse Resp SpO2 Height Weight 01/19/19 1320 113/74 97.9 F (36.6 C) Oral 84 18 99 % 5' 4 84.8 kg (187 lb) Physical Exam Vitals signs and nursing note reviewed. Constitutional: General: She is not in acute distress. Appearance: She is well-developed. She is not diaphoretic. HENT: Head: Normocephalic and atraumatic. Right Ear: Tympanic membrane and ear canal normal. No drainage, swelling or tenderness. No middle ear effusion. There is no impacted cerumen. No foreign body. No mastoid tenderness. Tympanic membrane is not injected, scarred, perforated, erythematous or retracted. Left Ear: Tympanic membrane and ear canal normal. No drainage, swelling or tenderness. No middle ear effusion. There is no impacted cerumen. No foreign body. No mastoid tenderness. Tympanic membrane is not injected, scarred, perforated, erythematous or retracted. Nose: Nose normal. Mouth/Throat: Lips: [place]. Mouth: Mucous membranes are moist. No injury. Tongue: No lesions. Palate: No mass and lesions. Pharynx: Oropharynx is clear. Posterior oropharyngeal erythema present. No pharyngeal swelling, oropharyngeal exudate or uvula swelling. Tonsils: No tonsillar exudate or tonsillar abscesses. Swellin+ on the right. 1+ on the left. Eyes: Extraocular Movements: Extraocular movements intact. Neck: Musculoskeletal: Normal range of motion and neck supple. Thyroid: No thyromegaly. Trachea: No tracheal deviation. Cardiovascular: Rate and Rhythm: Normal rate. Pulmonary: Effort: Pulmonary effort is normal. No respiratory distress. Breath sounds: Normal breath sounds. No wheezing or rales. Chest: Chest wall: No tenderness. Abdominal: General: Bowel sounds are normal. There is no distension. Palpations: Abdomen is soft. Tenderness: There is no tenderness. Musculoskeletal: Normal range of motion. Skin: General: Skin is warm and dry. Coloration: Skin is not jaundiced or pale. Neurological: General: No focal deficit present. Mental Status: She is alert and oriented to person, place, and time. Psychiatric: Mood and Affect: Mood normal. Behavior: Behavior normal. Laboratory & Radiographic Imaging (if done): Results for orders placed or performed during the hospital encounter of 01/19/19 Rapid Strep Screen Result Value Ref Range Strep A Ag Presumptive Negative for Group A Streptococcus Presumptive Negative for Group A Streptococcus No orders to display Procedures MDM Number of Diagnoses or Management Options Acute viral pharyngitis: Diagnosis management comments: 28-year-old female presenting to the ER with complaints of sore throat and ear pain. On exam she is awake alert, respirations are regular and easy. Lung sounds clear to auscultation abdomen soft and nontender. On infection of her ears TMs appeared normal, no erythema bulging or middle ear effusion noted. On exam of her throat uvula midline, no trismus or muffled quality to voice noted. Speech is clear and she is handling her airway and secretions. No concern for peritonsillar abscess. Rapid strep negative. Advised patient to take Tylenol home for aches and sore throat. Likely has viral infection. She was given strict return precautions to the ER. . . Clinical Impression: 1. Acute viral pharyngitis ED Disposition ED Disposition Condition Comment Discharge Stable Max Echevarria discharged to home/self care in stable condition. Follow-up Information 1. [facility] Emergency Department. Specialty: Emergency Medicine Why: If symptoms worsen [facility] [place] [address] Contact information for after-discharge care Follow-up information has not been specified. 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 Pt sent because the kids in my classroom have this pt is 37 weeks and denies any complaints related to , denies cramping, denies vaginal bleed, denies abdominal pain documented in this encounter Pt resting comfortably in bed at this time with visitor at bedside. Pt RR even and unlabored on RA, A&Ox4, speaking in complete sentences, NAD. Pt updated on plan of care and agreeable. Pt denies any further needs from this RN at this time. Bed locked and in lowest position. Call light within reach. Will continue to monitor. Pt to Ultrasound at this time. ED PROVIDER NOTE [facility] EMERGENCY DEPARTMENT NAME: Max Echevarria AGE: 28 y.o. : 1990 VISIT DATE: 06/30/2018 CSN: [id number] PCP: Physician No Chief Complaint Patient presents with Shoulder Pain Vaginal Bleeding 28-year-old female patient with history of anxiety and depression who presents initially for left shoulder pain and vaginal bleeding. Patient states yesterday after work she noticed some pain to the anterior portion of her left shoulder that shoots straight through to the posterior aspect of the shoulder with numbness and tingling in her hand. Denies any loss of strength. Denies any known injury or trauma. She is right-hand dominant. Rates her pain a 5 out of 10 describes it as sharp. Better at rest and worse with abduction of the left shoulder. Has not taken anything to alleviate her symptoms. Patient is with a last menstrual period of April 11. No confirmed IUP. Her CORPORATE SECURITIES RESEARCH ANALYST is Dr. Esmer Maria. She is on vitamins. Reports around 4 AM this morning she had some light vaginal spotting that was pink tinged. Denies any pelvic or abdominal pain. She does report some low back pain. No urinary symptoms. Denies any other abnormal vaginal discharge. Denies any concern for STDs. She has had constant nausea throughout her but denies any vomiting. No diarrhea or constipation. Denies any fever or chills. Past Medical History: Diagnosis Date Anxiety Depression Environmental and seasonal allergies Past Surgical History: Procedure Laterality Date WISDOM TOOTH EXTRACTION History reviewed. No pertinent family history. Social History Socioeconomic History Marital status: Single Spouse name: Not on file Number of children: Not on file Years of education: Not on file Highest education level: Not on file Social Needs Financial resource strain: Not on file Food insecurity - worry: Not on file Food insecurity - inability: Not on file Transportation needs - medical: Not on file Transportation needs - non-medical: Not on file Occupational History Not on file Tobacco Use Smoking status: Never Smoker Smokeless tobacco: Never Used Substance and Sexual Activity Alcohol use: Not Currently Comment: NONE SINCE POSITIVE TEST Drug use: No Sexual activity: Yes Partners: Male control/protection: None Other Topics Concern Not on file Social History Narrative Not on file Previous Medications Medication Sig vitamin with Ca-Iron-FA 27-1 mg Tab Take 1 tablet by mouth daily . pyridoxine, vitamin B6, (B-6) 25 MG tablet Take 1 (one) tablet (25 mg total) by mouth 3 (three) times a day . Allergies Allergen Reactions Codeine Septra [Sulfamethoxazole-Trimethoprim] Review of Systems Constitutional: Negative for chills, fatigue and fever. HENT: Negative. Eyes: Negative for photophobia and visual disturbance. Respiratory: Negative for shortness of breath. Cardiovascular: Negative for chest pain. Gastrointestinal: Positive for nausea. Negative for abdominal pain and diarrhea. Genitourinary: Positive for vaginal bleeding. Negative for difficulty urinating, dysuria, flank pain, frequency, hematuria, pelvic pain, urgency, vaginal discharge and vaginal pain. Musculoskeletal: Positive for arthralgias and back pain. Negative for joint swelling. Skin: Negative for rash. Allergic/Immunologic: Negative for immunocompromised state. Neurological: Positive for numbness. Negative for dizziness, weakness and headaches. Hematological: Does not bruise/bleed easily. Psychiatric/Behavioral: Negative for confusion. All other systems reviewed and are negative. Patient Vitals for the past 24 hrs: BP Temp Temp src Pulse Resp SpO2 Height 06/30/18 0959 115/68 80 16 100 % 06/30/18 0612 (!) 119/59 98.4 F (36.9 C) Oral 84 14 100 % 5' 4 Physical Exam Constitutional: She is oriented to person, place, and time. She appears well-developed and well-nourished. No distress. HENT: Head: Normocephalic and atraumatic. Mouth/Throat: Oropharynx is clear and moist. Eyes: Conjunctivae and EOM are normal. Pupils are equal, round, and reactive to light. Neck: Normal range of motion. Neck supple. Cardiovascular: Normal rate, regular rhythm, normal heart sounds and intact distal pulses. Pulses: Radial pulses are 2+ on the right side, and 2+ on the left side. Dorsalis pedis pulses are 2+ on the right side, and 2+ on the left side. Posterior tibial pulses are 2+ on the right side, and 2+ on the left side. Pulmonary/Chest: Effort normal and breath sounds normal. No respiratory distress. She has no wheezes. She has no rales. Abdominal: Soft. Bowel sounds are normal. She exhibits no distension. There is no tenderness. There is no guarding. Genitourinary: Genitourinary Comments: Pelvic exam: Positive [place] sign to the cervix, os is closed with no active bleeding. There is old blood in the vaginal vault. No discharge. No adnexal or cervical motion tenderness. Chaperoned by KEVIN Devine. Musculoskeletal: She exhibits no edema. Left shoulder: She exhibits tenderness and pain. She exhibits normal range of motion, no swelling, no crepitus, no deformity, no laceration, no spasm, normal pulse and normal strength. Pain with passive abduction of the left shoulder and anterior palpation. No deformity or overlying skin changes. Good distal pulses and cap refill. 5 out of 5 strength. No pain on flexion or extension of the shoulder. No pain on internal or external rotation. Neurological: She is alert and oriented to person, place, and time. She has normal strength. No sensory deficit. Skin: Skin is warm and dry. Capillary refill takes less than 2 seconds. No rash noted. She is not diaphoretic. No erythema. No pallor. Psychiatric: She has a normal mood and affect. Her behavior is normal. Nursing note and vitals reviewed. Laboratory & Radiographic Imaging (if done): Results for orders placed or performed during the hospital encounter of 06/30/18 Urinalysis Result Value Ref Range Color, Urine Yellow Colorless, Yellow Clarity, Urine Hazy (A) Clear Specific [place] 1.024 1.005 - 1.025 pH, Urine 6.0 5.0 - 7.0 Protein, Urine Negative Negative mg/dL Glucose, Urine Negative Negative mg/dL Ketones, Urine Negative Negative mg/dL Bilirubin, Urine Negative Negative Urobilinogen, Urine <2.0 <2.0 mg/dL Blood, Urine Large (A) Negative Nitrite, Urine Negative Negative Leukocyte Esterase, Urine Negative Negative WBCs, Urine 2 0 - 5 /hpf RBCs, Urine 4 (H) 0 - 3 /hpf Bacteria, Urine None Seen None Seen /hpf Squamous Epithelial 4 0 - 4 /hpf Mucus, Urine Rare None Seen, Rare /lpf BMP Result Value Ref Range Sodium 140 135 - 145 mmol/L Potassium 3.9 3.5 - 5.1 mmol/L Chloride 104 98 - 108 mmol/L Bicarbonate 22 21 - 32 mmol/L Anion Gap 18 10 - 20 mmol/L Glucose 82 65 - 99 mg/dL BUN 8 8 - 25 mg/dL Creatinine 0.47 0.40 - 1.10 mg/dL eGFR 136 >=60 mL/min/1.73 m2 BUN/Creatinine Ratio 17.0 10.0 - 20.0 Calcium 9.3 8.4 - 10.2 mg/dL HCG (QUANTITATIVE) Result Value Ref Range hCG Quant 82,298 (H) 0 - 5 mIU/mL CBC Auto Differential Result Value Ref Range WBC 7.28 4.50 - 11.00 K/mcL RBC 4.73 4.00 - 5.20 M/mcL Hemoglobin 14.1 12.0 - 16.0 g/dL Hematocrit 41.2 36.0 - 46.0 % MCV 87.1 80.0 - 100.0 fL MCH 29.8 26.0 - 34.0 pg MCHC 34.2 31.0 - 37.0 g/dL Platelets 271 150 - 400 K/mcL RDW - CV 12.4 11.6 - 14.8 % MPV 10.3 9.0 - 15.5 fL Neutrophils 70.3 % Lymphocytes 21.4 % Monocytes 6.9 % Eosinophils 0.8 % Basophils 0.5 % IG Percent 0.10 % Neutrophils Abs 5.11 1.70 - 7.00 K/mcL Lymphocytes Abs 1.56 0.90 - 4.00 K/mcL Monocytes Abs 0.50 0.30 - 0.90 K/mcL Eosinophils Abs 0.06 0.00 - 0.50 K/mcL Basophils Abs 0.04 0.00 - 0.30 K/mcL IG Absolute 0.01 0.00 - 0.30 K/mcL Nucleated RBC 0.0 % Nucleated RBC Abs 0.00 0.00 - 0.00 K/mcL US Obstetric 1st Trimester With Transvaginal, Transabdominal And Color Flow Single Fetus Final Result Single viable intrauterine estimated gestational age of 8 weeks 1 day. Small subchorionic hemorrhage. 7.6 cm x 7.2 cm x 4.5 cm mixed echogenicity right adnexal mass questioning the possibility of a dermoid. Given the patient's status, follow-up ultrasound in 3-6 weeks to assure stability and/or resolution this finding is warranted. If findings do persist at a later date/, CT or MR of the pelvis could be pursued. [employer] Workstation ID: [id number] Procedures MDM Number of Diagnoses or Management Options Acute pain of left shoulder: Subchorionic hemorrhage of placenta in first trimester, single or unspecified fetus: Vaginal bleeding in : Diagnosis management comments: 28-year-old female patient who presents for acute left shoulder pain and vaginal bleeding in . Patient is well-appearing with stable vital signs. She does not have any abdominal tenderness or pelvic pain on exam. Please see above for document a pelvic exam. There was no abnormal vaginal discharge and cultures were not obtained as patient does not have any concern for STDs. On exam of her left shoulder she has pain on passive range of motion of abduction of her shoulder, there are no deformities, swelling or overlying skin changes. Suspect possible muscle strain or tendinitis. Instructed patient on Tylenol and ice. She is aware she cannot take any NSAIDs during . She has full range of motion and good strength. She is neurovascularly intact. She did refuse the x-ray, which is understandable. She did not have any known trauma. Blood type from June 21 is B positive, no need for RhoGam. Hemoglobin and hematocrit are stable, BMP is unremarkable. Quant 82,298. Urinalysis is not infected, does reveal some blood likely contaminated from vaginal bleeding. Ultrasound shows a live IUP, 8 weeks 1 day with a heart rate of 161. Also reveals a small subchorionic hemorrhage, likely the cause of vaginal bleeding. Incidental finding of a echogenicity right adnexal mass question the possibility of a dermoid. I spoke with the on-call CORPORATE SECURITIES RESEARCH ANALYST to discuss these results and she stated to follow-up in the office in 3 weeks for repeat ultrasound. Strict return precautions were given to the patient including any severe pelvic pain or worsening symptoms. She does verbalize understanding of this plan of care and is discharged in stable condition. ED Course as of Jun 30 125 Wed Jun 30, 2018 0930 Patient reports that this PA that she developed left-sided shoulder pain and tingling around 4:30 PM last night and then throughout the night developed vaginal spotting. Reports she is 8 weeks without confirmed IUP yet. Blood work from June 21, 2018 shows ABO Rh B+ . [KS] 0931 Pt declines shoulder xray. [KS] [address] Neff ( ob hr business partner consultant for [facility]) about US results. States have patient follow up in three weeks In the office for repeat US and to return to ER immediately for any pelvic pain. Patient updated and aware. [AD] ED Course User Index [AD] Ivanna Covarrubias CNP [KS] EMILY Tucker . Clinical Impression: SNOMED CT(R) 1. Acute pain of left shoulder SHOULDER PAIN 2. Vaginal bleeding in BLEEDING FROM FEMALE GENITAL TRACT DURING 3. Subchorionic hemorrhage of placenta in first trimester, single or unspecified fetus SUBCHORIONIC HEMATOMA ED Disposition ED Disposition Condition Comment Discharge Stable Max Echevarria discharged to home/self care in stable condition. Follow-up Information 1. Esmer Maria DO. Specialty: Obstetrics/Gynecology Why: For repeat ultrasound [address] [place] [address] Contact information for after-discharge care Follow-up information has not been specified. Ivanna Covarrubias CNP 06/30/18 1252 Ivanna Covarrubias at pt's bedside at this time Pt resting comfortably sitting at the side of the bed at this time with visitor at bedside. Pt RR even and unlabored, A&Ox4, speaking in complete sentences, VSS, NAD. Full ROM of all extremities. Pt updated on plan of care and agreeable. Pt denies any further needs from this RN at this time. Bed locked and in lowest position. Call light within reach. Will continue to monitor. Pt ambulatory to triage with c/o left shoulder pain and left arm numbness x 1 day. Pt denies strenuous activity, trauma, falls. Pt also c/o low back pain. Pt states she is , 8 weeks. Pt denies abdominal pain, vaginal discharge. Trolley Car Overhauler equal, full sensation noted. Bilateral 2+ radial pulses, CHARTERED ACCOUNTANT < 2 seconds. in this encounter Radha, Elizabeth, PRIMARY SCHOOL PRINCIPAL OTOLARYNGOLOGY SURGEON - 02/15/2019 1:16 PM EST Consult Notes (unrecognized section and content) Associated Order(s): IP CONSULT TO CARE MANAGEMENT COMPLEX DISCHARGE Date: 02/15/2019 Time: 1:16 PM Patient Name: Max Echevarria Date of : 1990 Sex: Female Discharge Plan Shared UM/CC and RN Source of Information: Patient, Chart Contact Living Arrangements: Spouse/significant other Support Systems: Spouse/significant other, Family members Functional Status: Independent Type of Residence: Private residence Prior to Admission Home Care Services: No Current Home Equipment: Other (Comment)(Has needed supplies) Insurance Coverage for Prescriptions: No Discharge Readiness Expected Discharge Date: 02/16/19 [facility] [place] Disposition D/C Disposition: Home Agency/Destination: Home Psychosocial Assessment Presenting situation/diagnosis: 28 year old mother, with term infant admitted to well-baby nursery. Reason for consult: Per protocol, social work will screen/assess all patients. Patient background/information Infant's name: Milli Mayers Father of infant: True Mayers Marital status: care: CHANA HernandesC initiated at 6 wks Safety Screen General safety concerns: No concerns noted in review of [facility], [facility] or CareEverywhere records. History of intimate partner/domestic violence: No concerns noted in records; FOB present and appropriate during assessment. Drug/alcohol/tobacco use: Pt denies current use or hx of use of substances; no concerns noted in records. Maternal toxicology screen history: n/a Maternal toxicology screen at delivery: not indicated at admission Infant toxicology screen: not indicated at delivery Mental health history: Pt reports hx of anxiety/depression, however pt denies current MH concerns. Pt reports ability to successfully manage anxiety/depression. POEM handout provided and reviewed. Encouraged pt to follow up with her OBGYN if PP depressive symptoms occur. Legal stressors: n/a Behavior/emotional observations: Pt responded appropriately to 's cues. Pt presented as well groomed, maintained appropriate eye contact, and answered all questions asked appropriately and in full sentences. Pt was forth coming with information, verbalized appreciation for SW assistance and conversation. Economic resources/needs Linkage with community programs/resources: Pt reports plan to apply for WIC and SNAP benefits post discharge. SW provided pt information on WIC, SNAP and other community resources. Medical insurance: [employer]; provided verification of letter, discussed pt will need to contact [employer] to have infant added to benefits. Housing: Pt reports residing with FOB/Spouse Transportation: Pt reports having a vehicle for transportation Infant supplies: Pt reports having all needed infant supplies including car seat and crib. Safe Sleep practices reviewed. Support system and family strengths/protective factors: Pt identifies FOB as supportive. OBGYN follow up/needs: Cameron grain drier follow up: [facility] Barrier (s) to safe and timely discharge or recommended medical follow up: No concerns regarding discharge. Interventions/Recommendations/Plan: SW met with pt to complete assessment. Reviewed certificate packet and how to apply for SSN for infant. Pt has no other needs for SW at this time. documented in this encounter Source Comments (unrecognize d section and content) In the event this informatio n is protected by the Federal Confidentiality of Alcohol and Drug Abuse Patient Records regulations: The Federal rules restrict any use of the information to criminally investigate or prosecute any alcohol or drug abuse patient.[facility] the event this information is protected by the Federal Confidentiality of Alcohol and Drug Abuse Patient Records regulations: The Federal rules restrict any use of the information to criminally investigate or prosecute any alcohol or drug abuse patient.[facility] the event this information is protected by the Federal Confidentiality of Alcohol and Drug Abuse Patient Records regulations: The Federal rules restrict any use of the information to criminally investigate or prosecute any alcohol or drug abuse patient.[facility] the event this information is protected by the Federal Confidentiality of Alcohol and Drug Abuse Patient Records regulations: The Federal rules restrict any use of the information to criminally investigate or prosecute any alcohol or drug abuse patient.[facility] FOR RECORDS PERTAINING TO PATIENTS WHO ARE OR HAVE BEEN ENROLLED IN A CHEMICAL DEPENDENCY/SUBSTANCEABUSE PROGRAM, SOME INFORMATION MAY BE OMITTED. This clinical summary was aggregated from multiple sources. Caution should be exercised in using it in the provision of clinical care. This summary normalizes information from multiple sources, and as a consequence, information in this document may materially change the coding, format and clinical context of patient data. In addition, data may be omitted in some cases. CLINICAL DECISIONS SHOULD BE BASED ON THE PRIMARY CLINICAL RECORDS. [facility]. provides no warranty or guarantee of the accuracy or completeness of information in this document.
--- NOTE | 2023-04-25 02:19 | EDS_ITS ---
HPI History of Present Illness Chief Complaint: Dental Detail of Chief Complaint: Right upper jaw premolar dental pain. Informant: patient Onset/Context/Timing Onset: Weeks Context: Gradual Onset Timing: Continuous Current Severity: Moderate Maximum Severity: Moderate Associated Symptoms Assocated Symptom - Dental: cold sensitivity and hot sensitivity; Negative for fever, jaw swelling or face swelling Narrative Narrative: 32-year-old female 18 weeks . Ab0. Has a chipped tooth that occurred on 1216. She has had pain for on this for the last week. Denies any fever. No significant facial swelling. Says she just cannot handle the pain. She has a dentist appointment on Thursday 2 days from now. Prior similar symptoms: Yes Recent Illness/Hospitalization: No PFSH PFSH Home Medications Prenatabs FA 1 tab PO DAILY 04/23/20 [History Last Taken 01/23/22] ondansetron 4 mg disintegrating tablet 4 mg PO Q8H PRN PRN Nausea #20 tabs 08/26/22 [Rx Last Taken Unknown] albuterol sulfate 90 mcg/actuation aerosol inhaler (Ventolin HFA) 2 puff inhalation Q4H PRN PRN Wheezing ##1 02/12/23 [Rx Last Taken Unknown] penicillin V potassium 500 mg tablet 500 mg PO 4X/DAY #40 tabs 04/25/23 [Rx Last Taken Unknown] Allergy/AdvReac Type Severity Reaction Status Date / Time codeine AdvReac Nausea/Vom/ Verified 04/25/23 01:44 Diarrhea sulfamethoxazole AdvReac Upset Verified 04/25/23 01:44 [From ] Stomach trimethoprim [From ] AdvReac Upset Verified 04/25/23 01:44 Stomach Surgical History History of surgery Social History Smoking Status: Never smoker ROS ROS ED ROS Narrative Denies recent illness. Review of Systems ROS Unobtainable: Denies due to encephalopathy Constitutional Constitutional ED: Denies chills or fever(s) ENT ENT ED: Denies ear pain Cardiovascular Cardiovascular: Denies chest pain Respiratory/Chest Respiratory/Chest: Denies cough Gastrointestinal Gastrointestinal: Denies abdominal pain Genitourinary Genitourinary ED: Denies dysuria or hematuria Musculoskeletal Musculoskeletal: Denies arthralgias Integumentary Denies abscess Neurologic Neurologic: Denies headache(s) Psychiatric Psychiatric: Denies anxiety or depression Endocrine Endocrinology: Denies cold intolerance Hematologic/Lymphatic Hematologic/Lymphatic: Denies easy bruising Allergic/Immunologic Allergic/Immunologic ED: Denies mouth swelling, tongue swelling or urticaria EXAM Physical Exam Narrative Exam Narrative: Well-appearing 32-year-old female. Vital signs stable afebrile. H EENT exam good dentition right upper premolar is cracked and loose. Tender to palpation. Minimal swelling no abscess. No trismus. Nothing to drain. Able to open close her mouth out difficulty. Posterior pharynx unremarkable. No significant facia l swelling. Tender to palpation. Lungs clear. Heart regular rhythm no murmur. Abdomen soft nontender. Gravid uterus. Moving all 4 extremities. Nontender. Neurologically she is awake alert no focal motor deficits. Const Vital Signs: 04/25/23 01:44 Temperature 98.4 F Temperature Source Oral Pulse Rate 98 Respiratory Rate 18 Blood Pressure 132/57 H Blood Pressure Mean 82 Pulse Ox 100 Oxygen Delivery Method Room Air Positive well nourished and well developed; Negative for obese, cachectic, contractures or unkempt General Appearance ED: well developed and NAD; Negative for unkempt, cachectic, contractures or pallor Nutritional Appearance: Negative for cachectic or obese HEENT Denies other HEENT Narrative: Right upper premolar cracked and loose. Tender to palpation. No abscess. Minimal gum swelling. No facial swelling. Negative for trauma, tenderness or other Face and Sinus: Negative for sinuses nontender Mouth ED: Yes oral and palatal mucosa normal, Yes lips normal, Yes tongue monique l, Yes salivary gland normal and No oral and palatal mucosa abnormal Mouth: oral and palatal mucosa normal, lips normal, tongue normal, salivary gland normal and No oral and palatal mucosa abnormal Teeth and Gingiva: abnormal tooth and associated gingiva Throat: posterior oropharynx normal Eyes PERRL and EOMs intact bilaterally General Eye ED: Negative for pale conjunctiva or scleral icterus Neck no lymphadenopathy, supple and no JVD General: Negative for normal visual inspection Lymph Lymphatic: no lymphadenopathy noted Chest Wall inspection of chest normal and palpation of chest normal Chest: Negative for other Resp normal respiratory effort, no retractions and clear to auscultation bilaterally Cardio regular rate, regular rhythm, S1 normal heart sound, S2 normal heart sound and no murmurs Jugular Venous Distention: Negative for other Palpation: Negative for palpable S3 Rate: Negative for bradycardia Rhythm: Negative for abnormal rhythm GI normal to inspection, nondistended, normoactive bowel sounds, non-tender, non- distended and no masses Inspection: Negative for other Palpation: soft Bladder / Kidney Exam: No other Back/Spine no CVA tenderness General Back: Negative for CVA tenderness Cervical Spine: Negative for other Thoracic Spine / Upper Back: Negative for thoracic spinal tenderness Extremity normal to inspection General Extremety ED: Negative for edema General Extremity: Negative for edema Neuro oriented x3, CN's II-XII intact bilaterally and moves all extremities Sensorium / Orientation: alert, oriented to person, oriented to place and oriented to time; Negative for orientation impaired Motor Exam: strength 5/5 throughout Psych mental status grossly normal Appearance: Negative for unkempt Attitude: No agitated Mood & Affect: Negative for depressed or anxious Skin no rashes or lesions noted and no wounds General Skin Exam: Negative for pallor Image ED - URI/Dental Diagram: 1. Cracked premolar. Tender to palpation. No abscess. MDM MDM MDM Narrative Medical decision making narrative: 18-week female dental pain. She will be placed on Pen-Vee K 500 4 times daily for 10 days. She is [facility] appointment on Thursday. Tylenol for pain. Ice to the area. I did do a dental block to try to help with the pain. History & Record Review Discussion w/independent historian: Patient Additional record(s) reviewed:: Prior inpatient record, Prior outpatient record, Prior ED visit and Prior labs Procedures Other Procedures Procedure(s): Marcaine dental block. Patient tolerated procedure well. Still getting relief within minutes. Discharge Plan Triage Chief Complaint: Dental ED Provider: Ace Oneil Dx/Rx/DC Orders Clinical Impression: Pain, dental, Second trimester , Dental trauma Instructions: Dental Trauma, ED Dental Pain Prescriptions: New penicillin V potassium 500 mg tablet 500 mg PO 4X/DAY Qty: 40 0RF No Action Prenatabs FA 1 tab PO DAILY ondansetron 4 mg tablet,disintegrating 4 mg PO Q8H PRN PRN (Reason: Nausea) Qty: 20 0RF albuterol sulfate [Ventolin HFA] 90 mcg/actuation HFA aerosol inhaler 2 puff inhalation Q4H PRN PRN (Reason: Wheezing) Qty: 1 0RF Primary Care Provider: Care Physician,No Primary Referrals: Care Physician,No Primary [Primary Care Provider] - Activity Restrictions/Additional Instructions: Follow-up with your dentist on Thursday. Penicillin 4 times a day. Tylenol for pain. Disposition Disposition: Home, Self Care
[2023-04-25 02:33] VITALS: BP 132/54; PULSE 96; RESP 18
== END 2023-04-25 02:34 | disposition home or self-care (01) ==
PROVIDERS: Emergency Provider Emergency Medicine; Visit Provider Emergency Medicine
DX: O99.612 Diseases of the digestive system complicating pregnancy, second trimester (principal); Z3A.18 18 weeks gestation of pregnancy; K08.89 Other specified disorders of teeth and supporting structures
CPT/HCPCS: 64999; 99282

== ENCOUNTER 2023-08-18 21:05 | Outpatient (CLI) | payer MEDICAID, SELFPAY ==
[2023-08-18 21:25] VITALS: PULSE 92; RESP 16; TEMP 37; O2SAT 98
[2023-08-18 21:26] VITALS: BP 115/71; PULSE 95
[2023-08-18 21:40] VITALS: BMI 36.1
--- NOTE | 2023-09-01 19:40 | OB.TRI.NOTE ---
HPI - General HPI Narrative MAX GUILLEN, is a 33 F who presents Maternal Data Information Final CORNELIO: 09/24/23 Gestational age: 34.5 PFSH PFSH Home Medications ?Medication ?Instructions ?Recorded ?Last Taken ?Type Prenatabs FA 1 tab PO DAILY 04/23/20 01/23/22 History Allergy/AdvReac Type Severity Reaction Status Date / Time codeine AdvReac Nausea/Vom/ Verified 08/18/23 21:39 Diarrhea sulfamethoxazole (From AdvReac Upset Verified 08/18/23 21:39 Septra) Stomach trimethoprim (From Septra) AdvReac Upset Verified 08/18/23 21:39 Stomach Surgical History History of surgery Social History Smoking Status: Never smoker History Elective abortions Hx Para 2 Spontaneous abortions Hx # Term Pregnancies Ectopic pregnancies Hx # Pregnancies Multiple births # of living children Assessment & Plan (1) Threatened premature labor: QUALIFIERS: Trimester: third trimester Qualified Code(s): O47.03 - False labor before 37 completed weeks of gestation, third trimester PLAN: Plan NST for threatened PTL
== END 2023-08-18 22:18 | disposition home or self-care (01) ==
LOC: WPOUT 21:16 → WP 21:17
PROVIDERS: Visit Provider Obstetrics & Gynecology
DX: O47.03 False labor before 37 completed weeks of gestation, third trimester (principal); Z3A.34 34 weeks gestation of pregnancy
CPT/HCPCS: 59025; 59050; 99221; G0378

== ENCOUNTER 2023-09-23 07:00 | Inpatient (IN) | payer MEDICAID, SELFPAY ==
[2023-09-23] VITALS (50 sets, daily range): BP systolic 90–130; BP diastolic 46–67; PULSE 69–107; RESP 16–18; TEMP 36.2–37.6; O2SAT 96–100; BMI 36.3
[2023-09-23] MEDS: Lactated Ringers 1,000 ML 50 ML IV (07:30)
[2023-09-23 07:52] LABS: Absolute Lymphocyte Count 1.84 X10^3/uL (0.83-4.51); Absolute Neutrophil Count 6.4 X10^3/uL (2.0-7.7); Basophil# 0.05 X10^3/uL; Basophil% 0.5 % (0-1); Eosinophils% 1.1 % (0-5); Hematocrit 37.7 % (37-47); Hemoglobin 12.4 g/dL (12.0-15.0); Lymphocyte # 1.84 X10^3/ul (0.83-4.51); Mean Corp Hgb Conc 32.9 g/dL (32-36); Mean Corpuscular Hgb 29.8 pg (27.0-32.0); Mean Corpuscular Volume 90.6 fL (81-99); Mean Platelet Vol. 10.5 fl (6.2-12.0); Monocyte# 0.78 X10^3/uL; Monocyte% 8.5 % (0-10); NRBC Flagged by Analyzer 0 % (0-5); Neutrophil # 6.39 X10^3/uL (2.7-7.7); Neutrophil % 69.4 % (47-70); Platelet Count 202 K/mm3 (150-450); RBC Distribution Width CV 13.2 % (11.6-14.6); RBC Distribution Width SD 42.9 fl (35.1-43.9); Red Blood Count 4.16 M/mm3 (4.2-5.4); White Blood Count 9.2 K/mm3 (4.4-11.0)
[2023-09-23] MEDS: Oxytocin 15 Units/NS 250ml 15 UNITS/250 ML IV.SOLN 2 UNITS IV (08:00)
--- NOTE | 2023-09-23 08:19 | PCM.HP.OB ---
HPI - General General Date of Admission: 09/23/23 HPI Narrative MAX GUILLEN, is a 33 F @ 39.6 weeks who presents for elective IOL PFSH PFSH Medical History (Updated 09/23/23 @ 08:[address] Glendy Hanson MD) Superficial varicosities Home Medications ?Medication ?Instructions ?Recorded ?Last Taken ?Type Prenatabs FA 1 tab PO DAILY 04/23/20 09/22/23 History Allergy/AdvReac Type Severity Reaction Status Date / Time codeine AdvReac Nausea/Vom/ Verified 09/23/23 07:38 Diarrhea sulfamethoxazole (From AdvReac Upset Verified 09/23/23 07:38 Septra) Stomach trimethoprim (From Septra) AdvReac Upset Verified 09/23/23 07:38 Stomach Surgical History History of surgery Social History Smoking Status: Never smoker History Elective abortions Hx Para 3 Spontaneous abortions Hx # Term Pregnancies Ectopic pregnancies Hx # Pregnancies Multiple births # of living children NST FHR Rate Baby A Baseline: 145 Variability:: Moderate Accelerations:: 15 x 15 Decelerations:: None NST Reactive:: Yes FHR Category:: Category I Uterine Activity:: none Vital Signs Vital Signs Vital Signs: 09/23/23 07:46 09/23/23 07:46 09/23/23 07:46 Temperature Temperature Source Temporal Pulse Rate 107 H Respiratory Rate Blood Pressure 112/58 L BP Systolic 112 BP Diastolic 58 09/23/23 07:46 09/23/23 07:46 Temperature 98.2 F Temperature Source Pulse Rate Respiratory Rate 16 Blood Pressure BP Systolic BP Diastolic Weight Weight: 96.162 kg Body Mass Index (BMI) 36.3 Physical Exam Narrative 3-4/70/-2, AROM performed clear fluid Const alert and oriented x3 General Appearance: cooperative HEENT normocephalic GI GI Narrative: Gravid, non tender to palpation. OB / External & Speculum: external exam normal Extremity normal to inspection Skin no rashes or lesions noted Neuro oriented x3 and CN's II-XII intact bilaterally Psych Appearance: grossly normal Labs Labs Labs: Blood Type B POSITIVE Antibody Screen NEGATIVE Hct 37.7 % (37-47) Hgb 12.4 g/dL (12.0-15.0) Obstetrics Ultrasound Syphilis Total Ab Non-reactive Rubella IgG Antibody Reactive (Nonreactive) Hep Bs Antigen Non-Reactive (Nonreactive) Hepatitis C Antibody Non-Reactive (Nonreactive) Chlamydia DNA (BRITTANY) Negative (Negative) N.gonorrhoeae DNA (BRITTANY) Negative (Negative) HIV 1&2 Antibody Non-Reactive (Nonreactive) Glucose 1 Hr 50 gm 118 mg/dL (70-140) Rhogam given: No Assessment & Plan (1) Obesity affecting : (2) 39 weeks gestation of : (3) Encounter for elective induction of labor: PLAN: Plan Admit to L&D Montior FHR/TOCO Epidural if requested for pain Monitor VS Anticipate Pitocin and AROM
[2023-09-23 08:32] LABS: Syphilis Antibodies Non-reactive
[2023-09-23] MEDS: Lactated Ringers 1,000 ML 999 ML IV (09:44)
[2023-09-23] MEDS: fentaNYL-bupivacaine (epidural) 100 ML BAG EPIDURAL ×2 (10:40→15:02)
--- NOTE | 2023-09-23 13:21 | PCM.PN.BLA ---
Progress Note pt seen at bedside, resting comfortably- VE: 6-7/70/-2 , anticipate .
[2023-09-23] MEDS: LACTATED RINGERS 500 ML 999 ML IV (13:50)
[2023-09-23] MEDS: Amnioinfusion- 0.9% NS 1,000 ML IV.SOLN. 1000 ML INTRA-UTER (14:00)
[2023-09-23] MEDS: Lactated Ringers 1,000 ML 200 ML IV (14:49)
--- NOTE | 2023-09-23 16:24 | EX.PCM.OBRPT ---
Vaginal Delivery Operative Information Date of Procedure: 09/23/23 Pre-Operative Diagnosis: 39 weeks, elective IOL, Obesity in Post-Operative Diagnosis: same, live female Surgery / Procedure Performed: Spontaneous Vaginal Delivery Type of Anesthesia: Epidural Drain: Taylor to straight drain Estimated Blood Loss: 100 Time of Delivery: 16:09 Findings Description of Procedure: Patient progressed to fully dilated. 's head delivered, loose nuchal was reduced- delayed delivery of the anterior shoulder due to poor maternal pushing efforts. Less than 60 seconds then with maternal pushing efforts the anterior shoulder delivered followed by the posterior shoulder. The infant was placed on the mother's chest where the cord was cut clamped and the infant was handed off taken to the Isolette for further evaluation. At this time Pitocin was started and placenta was delivered intact without complication. Small first-degree vaginal laceration superior to the urethra. [id number] suture was placed for hemostasis using 3-0 Rapide. Excellent hemostasis appreciated no complications. The rest of the vagina and perineum were evaluated no other lacerations were noted. Fundus was firm. Presentation: Vertex Amniotic Membrane Rupture Type: Artificial Amniotic Fluid Description: Clear Placental Delivery Description: Expressed Placenta Disposition: [facility] Specimen(s) Removed: Placenta Cord Vessel Description: 3 Vessels Cord Entanglement: Around neck x 1, loose Nuchal Cord Compression: With compression A Gender: Female (1 minute): 5 (5 minute): 9 Delayed Cord Clamping: No Post Vaginal Delivery Medications Given After Delivery: IV Pitocin Episiotomy Description: None Laceration: Vaginal Extension/lac and 1st degree Complication Complications: None
[2023-09-23] MEDS: Oxytocin 15 Units/NS 250ml 15 UNITS/250 ML IV.SOLN 83 UNITS IV (16:43)
[2023-09-23] MEDS: 0.9% Saline Lock 10 ML Syringe IV (19:48)
[2023-09-23] MEDS: Acetaminophen 500 MG Tablet 1000 MG PO (22:29)
[2023-09-24] VITALS (11 sets, daily range): BP systolic 97–114; BP diastolic 49–63; PULSE 69–91; RESP 14–18; TEMP 36.3–37; O2SAT 97–99
[2023-09-24] MEDS: Acetaminophen 500 MG Tablet 1000 MG PO ×2 (04:42→16:39)
--- NOTE | 2023-09-24 08:35 | PCM.PROGNOTE ---
Subjective Subjective patient seen at bedside, doing well. Patient reports good pain control. lochia mild. breast feeding going well. voiding w/o difficulty. Objective Data Objective Data Vital Signs: Vital Signs Temp Pulse Resp BP Pulse Ox O2 Del Method 98.4 F 80 17 98/57 L 98 Room Air 09/24/23 08:10 09/24/23 08:10 09/24/23 08:10 09/24/23 08:10 09/24/23 04:24 09/24/23 08:10 Oxygen Delivery Method Room Air Weight: 96.162 kg Body Mass Index (BMI) 36.3 Intake & Output: Intake and Output for Last 24 Hours 09/22/23 09/23/23 09/24/23 23:59 23:59 23:59 Intake Total 3074.50 / 3074.50 Output Total 1300 / 1300 600 / 600 Balance 1774.50 / 1774.50 -600 / -600 Lab / Micro Data 09/23/23 07:30 Labs: Laboratory Results - last 24 hr 09/23/23 07:30: Blood Type B POSITIVE, Antibody Screen NEGATIVE Physical Exam Narrative fundus firm. Const alert and oriented x3 General Appearance: cooperative HEENT normocephalic Neck General: normal visual inspection GI soft to palpation and non-distended GI Narrative: Fundus firm Extremity normal to inspection and no calf tenderness Skin no rashes or lesions noted Neuro oriented x3 and CN's II-XII intact bilaterally Psych mental status grossly normal Assessment & Plan Assessment/Plan (1) Vaginal delivery: PLAN: Plan PPD# , Doing well Routine care pain mgmt ambulation dc home
--- NOTE | 2023-09-24 08:37 | DCINST_ITS ---
Discharge Instructions Diet Discharge Diet: No restrictions Activity May resume sexual activity in: 6-8 weeks Dressing / Incision Call your doctor if you observe: Fever of 101 or Higher, Inability to urinate, Using more than 1 pad per hour and Uncontrolled pain Follow Up Care Please Follow Up With: Glendy Hanson MD When: 1-2 weeks post and again at 6 weeks post . [phone] Test Results: Test results from this visit will be discussed in further detail at your follow- up appointment, if applicable. Discharge Plan Admission Admit Date/Time: 09/23/23 07:00 Attending Provider: Glendy Hanson Primary Care Provider: Care Physician,No Primary Discharge Orders/Prescriptions Prescriptions: No Action Prenatabs FA 1 tab PO DAILY Referrals / Follow Up: Care Physician,No Primary [Primary Care Provider] -
--- NOTE | 2023-09-24 08:38 | DCINST_ITS ---
Discharge Instructions Diet Discharge Diet: No restrictions Activity May resume sexual activity in: 6-8 weeks Dressing / Incision Call your doctor if you observe: Fever of 101 or Higher, Inability to urinate, Using more than 1 pad per hour and Uncontrolled pain Follow Up Care Please Follow Up With: Glendy Hanson MD Test Results: Test results from this visit will be discussed in further detail at your follow- up appointment, if applicable. Discharge Plan Admission Admit Date/Time: 09/23/23 07:00 Attending Provider: Glendy Hanson Primary Care Provider: Care Physician,Rebekah Primary Discharge Orders/Prescriptions Prescriptions: No Action Prenatabs FA 1 tab PO DAILY Referrals / Follow Up: Care Physician,No Primary [Primary Care Provider] - Disposition Disposition (needs filled in before D/C Order can be placed): Home, Self Care
[2023-09-24] MEDS: Ibuprofen 600 MG Tablet PO ×2 (10:09→21:55)
--- NOTE | 2023-09-24 16:07 | CASEMGMT ---
Social Work Assessment Labor and Delivery Unit Patient Address:[place] [address] Phone number: [phone] Date of Referral: 09/23/23 Time of Referral:? [phone] Referred By: Glendy Salcedo Date of Intervention: ??09/24/23 Time of Intervention:? 0 Reason for Referral: FOB THC user Sw completed chart review and acknowledges social work consult. Concerns regarding family also discussed in huddle. Bedside RN reports that parents have an older child with CP and when they unexpectedly got the initially considered an adoption plan for baby. However as the went on they changed their minds. Bedside RN also reports that MOB has not been nursing baby in timely intervals- at one point went 6 hours in between feeds. Education and support has been offered and provided. Sw presented to bedside and introduced self to mother of baby (MOB- Philomena) and father of baby (FOB- Amish). Sw explained sw role and completed psychosocial assessment. ? History obtained from: medical records, MOB and FOB Household composition: Parents report that currently residing in the family home is MOB, FOB, and their three older children (Anasi- 3.5, Persephone- 4.5 and Eleanor- 20 months), baby will also reside at this time when ready for discharge. Parents deny any issues or concerns with their home. Patient's parent/guardian status:? ?FOVictorina states that he and MOB were introduced to each other by mutual friends. They have been together now for 7 or 8 years. No concerns reported of domestic violence or intimate partner violence, Medical History: ?ANISHA is 33 year old female who is 4, para 3- now 4 after labor and delivery of . ANISHA received routine care during with [facility]. ANISHA presented to hospital for an induction of labor and delivered baby via vaginal delivery at 39 weeks gestation. Baby girl, named Jennifer Arzate, was born weighing 7lb 12oz with apgars of 5 and 9 at one and five minutes of life, respectfully. ANISHA states that she is breast feeding and does not express concerns. When talking about importance of making sure baby goes to breast every 2-3 hours if not waking before hand, ANISHA nodded head and states that she does not follow a schedule, she never has with her babies and her babies have all been fine. Sw again reiterated importance of feeding every 2-3 hours to ensure baby is gaining weight. ANISHA states that baby will be followed by Dr. Juárez for pediatrics. Educational Status:? Both parents graduated from high school, ANISHA obtained her Bachelors degree in industrial safety and health manager development. Financial Status: KACEY is gainfully employed outside of the home. ANISHA is a stay at home mom. Infant Supplies:?? Parents report to obtaining all necessary baby supplies, including: car seat, safe sleep space, clothes, diapers and wipes. Childcare/Caregiver(s):? MOB will be the primary caregiver to baby along with KACEY when he is not working. When talking to mom about bonding and having a connection to baby ANISHA stated she feels as though she has a connection. Transportation:?? No barriers, both parents have their drivers license and reliable means of transportation. Programs/Agencies Involved: ???Parents are connected to insurance through [employer] and WIC. ANISHA states that she is receptive to getting connected to [facility]. Children Services/Legal Issues:??? No former involvement with children services, no issues or concerns warranting referral to be made at this time. Behavioral Health Issues: ??Mental Health History:?KACEY reports that he has been diagnosed with manic depression and BiPolar. FOB states that he has not been on medication for almost 10 years. FOB states that he has healthy coping skills: reading/ listening to audio books, playing video games. MOB denies any mental health diagnoses. ?? Substance Use History:?ANISHA denies substance use. KACEY disclosed that he does smoke THC. FOB states that he never smokes in the home because their son has asthma. FOB states that he keeps his marijuana locked up in a place where the kids can not get into it. Sw discussed with parents the importance of utilizing healthy and appropriate coping skills during this time and not seeking comfort from drugs or alcohol. ? Family History:?FOVictorina states that his mom was an alcoholic and used cocaine. ? Drug Screens: ??No drug screens observed during chart review. Family/Social Stressors:?ANISHA states that she has been stressed out about her son (who has CP) going to preschool in the fall. MOB states that he does not qualify for in home services anymore because he is older than 3. MOB states that he takes a lot of her time, but she is really close with him. MOB states that she is nervous for him to start school and is anticipating learning more about the preschool program that the school offers. Sw discussed other resources that may be helpful for MOB at this time like a [facility] [place] through [facility]. MOB expressed appreciation. Support Systems: MOB states that FOVictorina and her mom and his dad are her biggest supports at this time. Depression/Shaken Baby/Safe Sleeping:? Sw educated parents on signs and symptoms of mood and anxiety disorders. Sw encouraged parents to seek support from a mental health professional if they feel as though their mental health is struggling during this period. Parents express understanding. Sw educated parents on shaken baby prevention and ABCs of safe sleep. Parents expressed understanding. ASSESSMENT:? MOB and baby are admitted following labor and delivery of . MOB was observed to be awake laying in bed with baby feeding her throughout duration of assessment./ conversation. FOB talkative and engaging throughout assessment. Initially MOB appeared to be tired and non-engaging, however throughout ongoing conversation she perked up and participated adding to the conversation. Parents have another child with CP and initially considered arranging an adoption plan for baby, however they got attached during the and at this time FOB states aint no one taking my baby, we love her too much. Parents have obtained all necessary baby supplies and have natural supports in place. MOB receptive to referral to be made to [facility]. Sw to do that. PLAN:? MOB and baby to be discharged when medically ready. ?No other services requested or indicated. Raffaele Ren, LAST PULLER, LEACHER
[2023-09-25] MEDS: Acetaminophen 500 MG Tablet 1000 MG PO (00:05)
[2023-09-25 01:39] VITALS: BP 99/56; PULSE 82; RESP 16; TEMP 36.8; O2SAT 97
[2023-09-25 01:41] VITALS: BP 99/56; PULSE 82; PULSE 86; O2SAT 97
[2023-09-25] MEDS: Ibuprofen 600 MG Tablet PO (06:41)
--- NOTE | 2023-09-25 07:00 | PCM.DC.SUM ---
Providers Date of Admission: 09/23/23 Primary Care Physician: No Primary Care Phys Reason For Visit: VAGINAL DELIVERY Diagnosis Discharge Diagnosis (1) Vaginal delivery: Status: Acute Code(s): O80 - Encounter for full-term uncomplicated delivery (2) Care and examination of lactating mother: Status: Acute Code(s): Z39.1 - Encounter for care and examination of lactating mother Medications at Discharge Home Medications Prenatabs FA 1 tab PO DAILY 04/23/20 Hospital Course Operations None Procedures None Summary of Care Provided Minutes Spent on Discharge: 10 Hospital Course: Patient had . Hospital course was uneventful. Physical Exam Const alert and no apparent distress General Appearance: cooperative and comfortable Exam Limitations: no limitations HEENT normocephalic Eyes General Eye: normal appearance of both eyes Neck full ROM General: normal visual inspection Chest Chest: symmetrical chest wall rise Resp normal respiratory effort and normal air movement Effort and Inspection: symmetric chest movement Auscultation: clear to auscultation bilaterally Cardio regular rate and regular rhythm GI normal to inspection, nondistended, normoactive bowel sounds Back/Spine normal ROM Extremity full ROM and no calf tenderness General Extremity: normal exam except as noted Skin no rashes or lesions noted Neuro CN's II-XII intact bilaterally Psych mental status grossly normal Weight / BMI Weight Weight: 212 lb Body Mass Index (BMI) 36.3 ABG / Lab / Microbiology Data 09/23/23 07:30 D/C Instructions Discharge Diet: No restrictions Discharge Activity: Return to Normal Activity and May Shower May resume sexual activity in: 6-8 weeks Weight Bearing Status: Weight bearing as tolerated Call your doctor if you observe: Fever of 101 or Higher, Inability to urinate, Using more than 1 pad per hour and Uncontrolled pain Please Follow Up With: Glendy Hanson MD When: 1-2 weeks post and again at 6 weeks post . [phone] Meaningful Use Info Meaningful Use Meaningful Use Diagnoses (Choose all that apply): None applicable Ischemic Stroke Statin Dosing Therapy Reference: STATIN DOSE THERAPY REFERENCE: * Patients > 75 years receive moderate or high dose statin therapy. * Patients 75 years or YOUNGER should receive HIGH intensity statin dose unless contraindicated. You will be required to document reason for non-treatment if statin daily dose does not meet guidelines. HIGH DOSE STATIN THERAPY DAILY Atorvastatin > than or = to 40 mg Rosuvastatin > than or = to 20 mg Amlodipine + Atorvastatin > than or = to 2.5/40 mg Ezetimibe + Simvastatin 10/80 mg Simvastatin 80mg Discharge Plan Admission Admit Date/Time: 09/23/23 07:00 Primary Reason for Your Visit: Labor and Delivery Attending Provider: Glendy Hanson Primary Care Provider: Care Physician,No Primary Discharge Orders/Prescriptions Prescriptions: No Action Prenatabs FA 1 tab PO DAILY Referrals / Follow Up: Care Physician,No Primary [Primary Care Provider] - Disposition Disposition (needs filled in before D/C Order can be placed): Home, Self Care
[2023-09-25 09:03] VITALS: BP 113/55; PULSE 90; RESP 16; TEMP 36.7; O2SAT 99
[2023-09-25 09:04] VITALS: BP 113/55; PULSE 88; O2SAT 99
== END 2023-09-25 10:55 | disposition home or self-care (01) | DRG 560 ==
PROVIDERS: Admitting Provider Obstetrics & Gynecology; Visit Provider Obstetrics & Gynecology
DX: O99.214 Obesity complicating childbirth (principal); Z37.0 Single live birth; O69.81X0 Labor and delivery complicated by cord around neck, without compression, not applicable or unspecified; O70.0 First degree perineal laceration during delivery; Z3A.39 39 weeks gestation of pregnancy
CPT/HCPCS: 59025; 59050; 85025; 86780; 86850; 86900; 86901; 99221; J7030; J7120; A4216; G0378

== ENCOUNTER 2024-08-12 06:08 | Emergency (ER) | payer MEDICAID, SELFPAY ==
[2024-08-12 06:09] VITALS: BP 133/67; PULSE 89; RESP 18; TEMP 36.9; O2SAT 100; BMI 35.5
--- NOTE | 2024-08-12 06:26 | US_ITS ---
PROCEDURE: ULTRASOUND TRANSVAGINAL/ 08/12/2024 REASON FOR EXAM: VAGINAL BLEEDING TECHNIQUE: Real-time grayscale and color flow imaging was performed along with routine image documentation. COMPARISON: ULTRASOUND DATED 02/07/2023 FINDINGS: An intrauterine gestational sac is noted measuring 0.6 cm and corresponding to 5 weeks and 2 days gestational age. Yolk sac is not visualized. Uterus measures 9.6 x 6.4 x 4.7 cm. Right ovary was nonvisualized. Left ovary measures 4.2 x 3.7 x 2.3 cm. No adnexal masses are demonstrated. Trace fluid in the cul-de-sac. Expected due date by ultrasound is 04/12/2025. Expected due date by last menstrual period is 2024. Expected gestational age by last menstrual period is 7 weeks and 4 days. US/Transvaginal w/Preg US IMPRESSION: A single intrauterine gestational sac. Estimated ultrasound gestational age of 5 weeks and 2 days. Trace fluid in the cul-de-sac. Right ovary was not visualized on this study. Reading Location: [facility]
[2024-08-12] MEDS: 0.9% Normal Saline (1000mL) 1,000 ML 999 ML IV (06:37)
[2024-08-12 06:44] LABS: Absolute Lymphocyte Count 2.17 X10^3/uL (0.83-4.51); Absolute Neutrophil Count 5.9 X10^3/uL (2.0-7.7); Basophil# 0.06 X10^3/uL; Basophil% 0.7 % (0-1); Eosinophil# 0.28 X10^3/uL; Eosinophils% 3.1 % (0-5); Hemoglobin 13.6 g/dL (12.0-15.0); Lymphocyte # 2.17 X10^3/ul (0.83-4.51); Lymphocyte % 23.9 % (19-41); Mean Corp Hgb Conc 33.2 g/dL (32-36); Mean Corpuscular Volume 87.4 fL (81-99); Mean Platelet Vol. 9.7 fl (6.2-12.0); Monocyte# 0.65 X10^3/uL; Monocyte% 7.2 % (0-10); NRBC Flagged by Analyzer 0 % (0-5); Neutrophil # 5.89 X10^3/uL (2.7-7.7); Neutrophil % 64.7 % (47-70); Platelet Count 249 K/mm3 (150-450); RBC Distribution Width CV 12.7 % (11.6-14.6); RBC Distribution Width SD 39.8 fl (35.1-43.9); Red Blood Count 4.69 M/mm3 (4.2-5.4); White Blood Count 9.1 K/mm3 (4.4-11.0)
--- NOTE | 2024-08-12 06:47 | EDS_ITS ---
HPI HPI - Female History of Present Illness Chief Complaint: Vag Bld, Preg Informant: patient and spouse/S.O. Narrative Narrative: Patient is a 34-year-old female who is a G5, P4 with no spontaneous miscarriages. She states she has no significant past medical history. She reports her last child was born roughly 11 months ago and was carried to full- term without any issues. She states that on she noticed slight spotting which began in the evening increased in severity. She states she is also noticed some pain in the lower back region. She states that with the pain as well as increasing bleeding she has concern for potential miscarriage and therefore comes in for evaluation. She states that she does not take blood thinners nor does she have a history of bleeding disorder [facility] Medical History Superficial varicosities Home Medications ?Medication ?Instructions ?Recorded ?Last Taken ?Type Prenatabs FA 1 tab PO DAILY 09/22/23 History amoxicillin 500 mg capsule 500 mg PO TID 08/12/24 Unkn own History Allergy/AdvReac Type Severity Reaction Status Date / Time codeine AdvReac Nausea/Vom/ Verified 08/12/24 06:09 Diarrhea sulfamethoxazole (From AdvReac Upset Verified 08/12/24 06:09 Septra) Stomach trimethoprim (From Septra) AdvReac Upset Verified 08/12/24 06:09 Stomach Surgical History (Updated 08/12/24 @ 06:10 by Reid Eden) Hx of tooth extraction History of surgery Social History Smoking Status: Never smoker ROS ROS ED Constitutional Constitutional ED: Denies chills or fever(s) Eyes Eyes: Denies change in vision ENT ENT ED: Denies sore throat Cardiovascular Cardiovascular: Denies chest pain Respiratory/Chest Respiratory/Chest: Denies cough or dyspnea Gastrointestinal Gastrointestinal: Denies abdominal pain, diarrhea, nausea or vomiting Genitourinary Genitourinary ED: Reports other Details: Positive vaginal bleeding ; Denies dysuria Musculoskeletal Musculoskeletal: Reports other Details: Positive low back pain ; Denies myalgias Integumentary Denies rash Neurologic Neurologic: Denies headache(s) Hematologic/Lymphatic Hematologic/Lymphatic: Denies easy bleeding or easy bruising EXAM Physical Exam Const Vital Signs: 08/12/24 06:09 Temperature 98.5 F Temperature Source Oral Pulse Rate 89 Respiratory Rate 18 Blood Pressure 133/67 H Blood Pressure Mean 89 Pulse Ox 100 Oxygen Delivery Method Room Air Positive well nourished and well developed General Appearance ED: well developed; Negative for pallor HEENT HEENT Narrative: Normocephalic atraumatic Eyes PERRL and EOMs intact bilaterally General Eye ED: Negative for scleral icterus Neck supple Resp normal respiratory effort and clear to auscultation bilaterally Cardio regular rate and regular rhythm Rate: other Other Details: Heart is regular rate and rhythm without murmurs rubs or gallop Radial and carotid pulses are equal and symmetric GI normal to inspection, nondistended, normoactive bowel sounds, soft to palpation, non-tender, non-distended and no masses GI Narrative: No voluntary guarding or rigidity or pulsatile mass No fundus palpated which correlates with her reported gestational age Auscultation: normoactive bowel sounds Palpation: soft Back/Spine no CVA tenderness Extremity normal to inspection and full ROM Neuro oriented x3, CN's II-XII intact bilaterally and no sensory deficits noted Sensorium / Orientation: alert Motor Exam: strength 5/5 throughout Psych Mood & Affect: anxious and tearful Skin no rashes or lesions noted Skin Narrative: Capillary refill is less than 3 seconds General Skin Exam: Negative for jaundice or pallor MDM MDM MDM Narrative Medical decision making narrative: Patient arrived to the ER with stable vitals. She reported increasing vaginal bleeding over the last 24 hours with pain in the low back. She states she did do cleaning the day prior to her symptoms beginning but denies any trauma. She also states there is been no dysuria. Differential diagnosis is for threatened miscarriage versus subchorionic hemorrhage versus ectopic versus UTI. Secondary to this basic blood work was obtained as well as a transvaginal ultrasound. From her previous pregnancies her blood type is B+ and therefore she will not require RhoGAM. At this time the patient's laboratory studies and ultrasound are still pending. Therefore she will be signed out to the day physician Dr. Poe pending results. I do feel that as she does not have acute blood loss anemia nor is she hypotensive that if the ultrasound confirms a intrauterine without findings to suggest ectopic then she should overall be safe for discharge. History & Record Review Discussion w/independent historian: Patient and Significant other Lab Data Attestation: I reviewed the patient's lab results. Labs: Laboratory Results - last 24 hr 08/12/24 06:36 WBC 9.1 RBC 4.69 Hgb 13.6 Hct 41.0 MCV 87.4 MCH 29.0 MCHC 33.2 RDW Std Deviation 39.8 RDW Coeff of Radha 12.7 Plt Count 249 MPV 9.7 Immature Gran % (Auto) 0.400 Neut % (Auto) 64.7 Lymph % (Auto) 23.9 [place] % (Auto) 7.2 Eos % (Auto) 3.1 Baso % (Auto) 0.7 Absolute Neuts (auto) 5.9 Absolute Lymphs (auto) 2.17 Nucleated RBC % 0 Discharge Plan Triage Chief Complaint: Vag Bld, Preg ED Provider: Hiram Noel Dx/Rx/DC Orders Clinical Impression: Vaginal bleeding in patient at less than 20 weeks gestation Prescriptions: No Action Prenatabs FA 1 tab PO DAILY amoxicillin 500 mg capsule 500 mg PO TID Primary Care Provider: Care Physician,No Primary Referrals: Care Physician,No Primary [Primary Care Provider] - Print Language: Iranian
[2024-08-12 06:57] LABS: Prothrombin Time (Protime)PT. 13.7 SECONDS (11.7-14.9)
[2024-08-12 06:58] LABS: Partial Thromboplast Time 29.9 Seconds (24.1-36.2)
[2024-08-12 07:07] LABS: Anion Gap 9 (5-15); BUN 9 mg/dL (4-19); BUN/Creat Ratio 12.9 RATIO (10-20); Calcium,Total 9.3 mg/dL (7.6-11.0); Carbon Dioxide 23.1 mmol/L (21.0-32.0); Chloride 106 mmol/L (98-108); Creatinine, Serum 0.71 mg/dL (0.70-1.20); EST Glomerular Filtration Rate 115 (>60); Estimated Creatinine Clearance 125.29 ml/min (50-250); Glucose 97 mg/dL (70-99); Potassium 4.4 mmol/L (3.3-5.1); Sodium Level 138 mmol/L (133-145)
[2024-08-12 07:14] LABS: hCG Titer Quant., Serum 513 mIU/mL (<9 non-preg)
[2024-08-12 08:08] VITALS: BP 123/65; PULSE 72; RESP 16; O2SAT 100
[2024-08-12 08:50] LABS: Bacteria 0 SEEN /hpf (None Seen); Mucous, Urine 0 SEEN /hpf (<or=2+); Squamous Epithelial Cells - UA 0 SEEN /hpf (5-10)
[2024-08-12 08:54] LABS: Glucose, Dipstick Normal (Normal); Ketone-Dipstick Negative (Negative); Leukocyte Esterase-Dipstick 500 /ul (Negative); Nitrite-Dipstick Negative (Negative); Occult Blood-Urine 250 /ul (Negative); Protein-Dipstick 100 mg/dl (Negative); Specific Gravity, Urine 1.005 (1.002-1.030); Urine Bilirubin Dipstick Negative (Negative); Urine Clarity Sl. Cloudy (Clear); Urine Urobilinogen Normal (Normal)
[2024-08-12 09:00] LABS: Color, Urine SEE COMMENT BELOW (Yellow)
[2024-08-12 09:24] LABS: Red Blood Cells-Urine > 100 SEEN /hpf (0-5); White Blood Cells 10-25 SEEN /hpf (0-5)
[2024-08-12 10:00] VITALS: BP 165/77; PULSE 70; RESP 16; O2SAT 98
[2024-08-12 10:02] VITALS: BP 165/77; PULSE 70; RESP 16; TEMP 36.3; O2SAT 98
== END 2024-08-12 10:02 | disposition home or self-care (01) ==
PROVIDERS: Emergency Provider Emergency Medicine; Visit Provider Emergency Medicine
DX: O20.9 Hemorrhage in early pregnancy, unspecified (principal); Z3A.20 20 weeks gestation of pregnancy
CPT/HCPCS: 76817; 80048; 81001; 84702; 85025; 85610; 85730; 96360; 96361; 99282

== ENCOUNTER 2024-10-03 18:49 | Emergency (ER) | payer MEDICAID, SELFPAY ==
[2024-10-03 18:49] VITALS: BP 119/66; PULSE 83; RESP 16; TEMP 36.8; O2SAT 100; BMI 34.8
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
[2024-10-03 22:36] VITALS: BP 112/89; PULSE 89; RESP 16; TEMP 36.7; O2SAT 99
== END 2024-10-03 22:37 | disposition home or self-care (01) ==
PROVIDERS: Emergency Provider Emergency Medicine; Visit Provider Emergency Medicine
DX: S00.412A Abrasion of left ear, initial encounter (principal); W22.8XXA Striking against or struck by other objects, initial encounter; Y93.42 Activity, yoga
CPT/HCPCS: 99282